=== PATIENT | female | born 1980 | race American Indian/Alaskan Native ===

== ENCOUNTER 2016-12-13 15:29 | Emergency (ER) | payer SELFPAY ==
[2016-12-13 18:29] LABS: Basophils % (Auto) 0.4 % (0.0-1.8); Eosinophils % (Auto) 1.5 % (0.0-4.3); Hematocrit 39.5 % (30.3-42.9); Hemoglobin 12.9 gm/dl (10.1-14.3); Mean Corpuscular HGB Conc 33 % (30-34); Mean Corpuscular Hemoglobin 29 pg (28-32); Mean Corpuscular Volume 90 fl (79-97); Platelet Count 312 K/mm3 (140-440); Red Cell Distribution Width 14.1 % (13.2-15.2); White Blood Count 6.7 K/mm3 (4.5-11.0)
[2016-12-13 18:43] LABS: Alanine Aminotransferase 15 units/L (7-56); Albumin 3.6 g/dL (3.9-5); Albumin/Globulin Ratio 1.1 %; Alkaline Phosphatase 68 units/L (35-129); Anion Gap 19 mmol/L; BUN/Creatinine Ratio 13.33; Bilirubin,Total 0.5 mg/dL (0.1-1.2); Blood Urea Nitrogen 8 mg/dL (7-17); Calcium 8.8 mg/dL (8.4-10.2); Carbon Dioxide 22 mmol/L (22-30); Chloride 99.6 mmol/L (98-107); Glucose 150 mg/dL (65-100); Potassium 3.5 mmol/L (3.6-5.0); Sodium 137 mmol/L (137-145)
[2016-12-13 19:21] LABS: Lipase 28 units/L (13-60)
[2016-12-13] MEDS ORDERED: ALUM-MAG HYDROX-SIMETH 200-200-20MG/5ML PO ONE (23:17)
[2016-12-13] MEDS ORDERED: LIDOCAINE VISCOUS 2% PO ONE (23:17)
[2016-12-14 01:04] LABS: Bilirubin,Urine NEG (Negative); Blood,Urine NEG (Negative); Ketones,Urine TR mg/dL (Negative); Leukocyte Esterase,Urine TR (Negative); Mucus,Urine 3+ /HPF; Nitrite,Urine NEG (Negative)
[2016-12-14] MEDS ORDERED: NORCO 5/325 PO ONE (01:10)
[2016-12-14] MEDS ORDERED: NORCO 5/325 ONE (01:11)
[2016-12-14 01:20] VITALS: BP 131/74
--- NOTE | 2016-12-14 01:27 | Emergency Department Report ---
ED Chest Pain HPI - General Chief Complaint: Chest Pain Stated Complaint: ACID REFLUX Time Seen by Provider: 12/13/16 23:00 Source: patient Mode of arrival: Ambulatory Limitations: No Limitations - History of Present Illness Initial Comments: This is a 36-year-old Afro-[place] female presents to the emergency Department , after arriving by taxi, with complaint of a 2 week history of chest pain with some radiation towards the left side of her back. It is a burning and pressure sensation in the patient feels like it might be similar to her GERD. She denies any shortness of breath, nausea, vomiting, diaphoresis or fever. Patient has chronic back pain for the past 2 years since she had a fall but she has run out of her tramadol. Patient says that she normally takes Zantac for her GERD but is not been working. She denies smoking or any illicit drug use or abuse. She has a past medical history of arthritis and GERD but denies any history of HI, CVA, PE/DVT. She does not have a primary care doctor. No recent travel or sick contacts at home. Severity scale (0 -10): 6 - Related Data Previous Rx's Medication Instructions Recorded Last Taken Type Prednisone [predniSONE 5 mg (6-Day 5 mg PO .TAPER #1 tab.ds.pk 09/02/14 Unknown Rx Pack, 21 Tabs)] traMADol [Ultram 50 MG tab] 50 mg PO Q6HR PRN #20 tablet 09/02/14 Unknown Rx Pantoprazole Sodium [Protonix] 40 mg PO DAILY #14 tablet.dr 02/04/15 Unknown Rx Amoxicillin [Trimox CAP] 500 mg PO Q8H #30 capsule 06/26/15 Unknown Rx HYDROcodone/APAP 5-325 [[place] 1 each PO Q6HR PRN #12 tablet 06/26/15 Unknown Rx 5/325] Promethazine Dm [Phenergan Dm 5 ml PO Q6H PRN #120 ml 06/26/15 Unknown Rx 6.25/15 mg 5 ml] predniSONE [Deltasone] 20 mg PO TID #12 tab 06/26/15 Unknown Rx Azithromycin [Zithromax Z-ROXANN] 250 mg PO QDAY #6 tablet 12/26/15 Unknown Rx Brompheniramine/Pseudoephed/Dm 10 ml PO Q4HR #120 syrup 12/26/15 Unknown Rx [Bromfed Dm Cough Syrup] Prednisone [predniSONE 10 mg 10 mg PO .TAPER #1 tab.ds.pk 12/26/15 Unknown Rx (6-Day Pack, 21 Tabs)] Ketorolac [Toradol] 10 mg PO Q6H PRN #20 tablet 04/19/16 Unknown Rx Dicyclomine [Bentyl] 10 mg PO QID PRN #20 capsule 05/21/16 Unknown Rx Ondansetron [Zofran Odt] 4 mg PO QID PRN #20 tab.rapdis 05/21/16 Unknown Rx HYDROcodone/APAP 5-325 [[place] 1 each PO Q6HR PRN #8 tablet 12/14/16 Unknown Rx 5/325] Allergies Allergy/AdvReac Type Severity Reaction Status Date / Time ketorolac tromethamine Allergy Rash Verified 05/20/16 21:25 [From Toradol] COLLIN score - Collin Score Age > 65: (0) No Aspirin use within the Past 7 Days: (0) No 3 or more CAD Risk Factors: (0) No 2 or more Angina events in past 24 hrs: (1) Yes Known CAD with more than 50% Stenosis: (0) No Elevated Cardiac Markers: (0) No ST Deviation Greater than 0.5mm: (0) No COLLIN Score: 1 ED Review of Systems ROS: Stated complaint: ACID REFLUX Other details as noted in HPI Comment: All other systems reviewed and negative Constitutional: denies: chills, fever Eyes: denies: eye pain, eye discharge, vision change ENT: denies: ear pain, throat pain Respiratory: denies: cough, shortness of breath, wheezing Cardiovascular: chest pain Gastrointestinal: denies: abdominal pain, nausea, diarrhea Genitourinary: denies: urgency, dysuria, discharge Musculoskeletal: back pain. denies: arthralgia Skin: denies: rash, lesions Neurological: denies: headache, weakness, paresthesias ED Past Medical Hx - Past Medical History Previous Medical History?: Yes Hx Congestive Heart Failure: No Hx Diabetes: No Hx GERD: Yes Hx Sickle Cell Disease: No Hx Arthritis: Yes Hx Asthma: No Hx COPD: No Hx HIV: No - Surgical History Past Surgical History?: No - Social History Smoking Status: Never Smoker Substance Use Type: None - Medications Home Medications: Home Medications Medication Instructions Recorded Confirmed Last Taken Type Prednisone [predniSONE 5 mg (6-Day 5 mg PO .TAPER #1 tab.ds.pk 09/02/14 Unknown Rx Pack, 21 Tabs)] traMADol [Ultram 50 MG tab] 50 mg PO Q6HR PRN #20 tablet 09/02/14 Unknown Rx Pantoprazole Sodium [Protonix] 40 mg PO DAILY #14 tablet.dr 02/04/15 Unknown Rx Amoxicillin [Trimox CAP] 500 mg PO Q8H #30 capsule 06/26/15 Unknown Rx HYDROcodone/APAP 5-325 [[place] 1 each PO Q6HR PRN #12 tablet 06/26/15 Unknown Rx 5/325] Promethazine Dm [Phenergan Dm 5 ml PO Q6H PRN #120 ml 06/26/15 Unknown Rx 6.25/15 mg 5 ml] predniSONE [Deltasone] 20 mg PO TID #12 tab 06/26/15 Unknown Rx Azithromycin [Zithromax Z-ROXANN] 250 mg PO QDAY #6 tablet 12/26/15 Unknown Rx Brompheniramine/Pseudoephed/Dm 10 ml PO Q4HR #120 syrup 12/26/15 Unknown Rx [Bromfed Dm Cough Syrup] Prednisone [predniSONE 10 mg 10 mg PO .TAPER #1 tab.ds.pk 12/26/15 Unknown Rx (6-Day Pack, 21 Tabs)] Ketorolac [Toradol] 10 mg PO Q6H PRN #20 tablet 04/19/16 Unknown Rx Dicyclomine [Bentyl] 10 mg PO QID PRN #20 capsule 05/21/16 Unknown Rx Ondansetron [Zofran Odt] 4 mg PO QID PRN #20 tab.rapdis 05/21/16 Unknown Rx HYDROcodone/APAP 5-325 [[place] 1 each PO Q6HR PRN #8 tablet 12/14/16 Unknown Rx 5/325] ED Physical Exam - General Limitations: No Limitations - Other Other exam information: GENERAL: The patient is well-developed well-nourished. HEENT: Normocephalic. Atraumatic. Extraocular motions are intact. Patient has moist mucous membranes. Pupils equal reactive to light bilaterally. NECK: Supple. Trachea is midline. CHEST/LUNGS: Clear to auscultation. There is no respiratory distress noted. HEART/CARDIOVASCULAR: Regular. There is no tachycardia. There is no gallop rub or murmur. ABDOMEN: Abdomen is soft, nontender. Patient has normal bowel sounds. There is no abdominal distention. Obese habitus. SKIN: Skin is warm and dry. NEURO: The patient is awake, alert, and oriented. The patient is cooperative. The patient has no focal neurologic deficits. The patient has normal speech. MUSCULOSKELETAL: There is no tenderness or deformity. There is no limitation range of motion. There is no evidence of acute injury. ED Course Vital Signs 12/13/16 12/14/16 15:43 01:18 Temperature 98.5 F 98.2 F Pulse Rate 82 81 Respiratory 16 16 Rate Blood Pressure 135/95 Blood Pressure 131/74 [Left] O2 Sat by Pulse 100 98 Oximetry ED Medical Decision Making - Lab Data Result diagrams: 12/13/16 17:41 12/13/16 17:41 - EKG Data -: EKG Interpreted by Me EKG shows normal: sinus rhythm, axis, intervals, QRS complexes, ST-T waves Rate: normal - EKG Data When compared to previous EKG there are: previous EKG unavailable Interpretation: normal EKG - Radiology Data Radiology results: image reviewed interpreted by me: Chest x-ray did not show any acute process. Heart is normal shape and size. No effusions. No pneumothorax. No signs of pneumonia seen. - Medical Decision Making 36-year-old female presents to the emergency department with complaint of some chest pain with radiation to the back has been going on for the past 2 weeks. The patient feels like it is related to her GERD so she was given a GI cocktail. When this did not improve her discomfort enough she was given a [place]. Patient's labs are unremarkable with negative troponins 3 and a negative d-dimer. There is no elevation in the white blood cell count show any signs of infection. No urinary tract infection and the patient is not . Chest x-ray does not show any acute process. EKG does not show any signs of ST elevation HI, dysrhythmia or ischemia. The patient has a COLLIN score of 1 if her pain is to be considered angina and 0 if it is not. She is low on the well's criteria criteria and despite that she is also negative with the d-dimer. For these reasons patient appears safe for discharge home. She will be given referrals for primary care and cardiology. She has been encouraged to return to the emergency department with any worsening of her symptoms or any acute distress. Since the patient did receive a [place], she understands that she is not able to take a taxi or an uber or drive herself home and needs someone to pick her up from the hospital. - Differential Diagnosis GERD, costochondritis, HI, PE, pneumonia Critical Care Time: No Critical care attestation.: If time is entered above; I have spent that time in minutes in the direct care of this critically ill patient, excluding procedure time. ED Disposition Clinical Impression: Chest pain Qualifiers: Chest pain type: unspecified Qualified Code(s): R07.9 - Chest pain, unspecified Back pain Qualifiers: Back pain location: thoracic back pain Chronicity: unspecified Back pain laterality: left Qualified Code(s): M54.6 - Pain in thoracic spine Disposition: DISCHARGED TO HOME OR SELFCARE Is pt being admited?: No Condition: Stable Instructions: Chest Pain (ED), Back Pain (ED) Additional Instructions: Please follow-up with a primary care doctor in the next few days. I will also given you a referral for a local terrazzo finisher, kristi Awanase she would like to follow up for an outpatient stress test. Return to the emergency department with any worsening of your symptoms or any acute distress. You've been prescribed a medication that is sedating. Therefore this medication cannot be mixed with alcohol, or taken prior to driving, working, or being responsible for children. Prescriptions: HYDROcodone/APAP 5-325 [[place] 5/325] 1 each PO Q6HR PRN #8 tablet PRN Reason: Pain Referrals: PRIMARY MD RONY [Primary Care Provider] - 3-5 Days RYAN ROTH MD [Staff Physician] - 3-5 Days TRU DURANT MD [Staff Physician] - 3-5 Days Time of Disposition: 01:37
--- NOTE | 2016-12-14 09:54 | XRay Report ---
Single view chest: Compared to 04/19/16. History: Chest pain. Findings: Normal cardiomediastinal silhouette. Trachea is midline. No consolidation, pneumothorax or pleural effusion. Impression: No acute cardiopulmonary findings.
== END 2016-12-14 02:00 | disposition home or self-care (01) ==
LOC: ED 15:29
DX: R07.9 Chest pain, unspecified (principal); M54.6 Pain in thoracic spine; K21.9 Gastro-esophageal reflux disease without esophagitis
CPT/HCPCS: 36415; 71010; 80048; 80053; 81001; 81025; 83690; 84484; 85025; 85379; 93005; 93010; 99285

== ENCOUNTER 2017-04-02 18:55 | Emergency (ER) | payer SELFPAY ==
[2017-04-02 19:49] LABS: Hematocrit 41.6 % (30.3-42.9); Hemoglobin 13.7 gm/dl (10.1-14.3); Mean Corpuscular HGB Conc 33 % (30-34); Mean Corpuscular Hemoglobin 30 pg (28-32); Mean Corpuscular Volume 90 fl (79-97); Red Blood Count 4.61 M/mm3 (3.65-5.03); Red Cell Distribution Width 13.5 % (13.2-15.2); White Blood Count 6.8 K/mm3 (4.5-11.0)
[2017-04-02 19:57] LABS: Mean Platelet Volume 7.7 fl (6-12); Platelet Count 315 K/mm3 (140-440)
[2017-04-02 19:58] LABS: Diff Status Complete
[2017-04-02 20:06] LABS: Alanine Aminotransferase 12 units/L (7-56); Albumin 3.9 g/dL (3.9-5); Albumin/Globulin Ratio 1.1 %; Alkaline Phosphatase 66 units/L (35-129); Anion Gap 21 mmol/L; BUN/Creatinine Ratio 11.66; Blood Urea Nitrogen 7 mg/dL (7-17); Calcium 8.8 mg/dL (8.4-10.2); Carbon Dioxide 21 mmol/L (22-30); Chloride 101.6 mmol/L (98-107); Glucose 96 mg/dL (65-100); Lipase 35 units/L (13-60); Potassium 4.2 mmol/L (3.6-5.0); Sodium 139 mmol/L (137-145); Total Protein 7.4 g/dL (6.3-8.2)
[2017-04-02 20:11] LABS: Bilirubin,Urine NEG (Negative); Blood,Urine LG (Negative); Ketones,Urine 20 mg/dL (Negative); Leukocyte Esterase,Urine SM (Negative); Nitrite,Urine NEG (Negative); Urobilinogen,Urine < 2.0 mg/dL (<2.0)
[2017-04-02 20:12] LABS: RBC,Urine > 182.0 /HPF (0.0-6.0)
--- NOTE | 2017-04-02 20:40 | Cat Scan Report ---
FINAL REPORT EXAM: CT HEAD/BRAIN WO CON HISTORY: HTN, Noncompliant Rx, Dizzy, Blurred Vision TECHNIQUE: Noncontrast serial axial images from skull base to vertex. PRIORS: None. FINDINGS: There is no mass effect or midline shift. There are no abnormal intra or extra-axial fluid collections. Cortical sulci and lateral ventricles are within normal limits for size and configuration. Basilar cisterns are patent. No acute intracranial hemorrhage is identified. Visualized paranasal sinuses and mastoid air cells are well aerated. No acute osseous abnormality is identified. IMPRESSION: 1. No abnormal mass or acute intracranial hemorrhage is identified.
[2017-04-02 20:44] LABS: INR 0.97 (0.87-1.13)
[2017-04-02 20:45] LABS: Partial Thromboplastin Time 26.4 Sec. (24.2-36.6)
--- NOTE | 2017-04-02 22:44 | Emergency Department Report ---
ED General Adult HPI - General Chief complaint: High BP Stated complaint: CYCLE/HEAVY BLEEDING Time Seen by Provider: 04/02/17 22:40 Source: patient, RN notes reviewed, old records reviewed Mode of arrival: Ambulatory Limitations: No Limitations - History of Present Illness Initial comments: This is a 37-year-old female. I have evaluated her in the past. She does not have a primary care doctor. Her motion picture set grip is "[facility]." Past medical history includes obesity, GERD, DJD. The patient presents to the ER today with vaginal bleeding, onset of menstruation today. She reports a menstruation is typically heavier than normal. She reports cramps, and she reports feeling anxious and shaking. She denies severe headache, severe chest pain, but admits to mild shortness of breath. There is no leg pain. There is no leg swelling. No recent trips greater than 4 hours. No recent hospital admissions. Patient does not take control tablets. No cocaine use. No recent aspirin use. No recent surgeries. She also reports that her blood pressure was slightly elevated. Her symptoms started today, around 9:00 in the morning, and they have no exacerbating or relieving factors. -: Gradual Severity scale (0 -10): 4 Quality: aching Consistency: constant Improves with: none Worsens with: none Associated Symptoms: cough, loss of appetite, malaise, shortness of breath, weakness - Related Data Previous Rx's Medication Instructions Recorded Last Taken Type Prednisone [predniSONE 5 mg (6-Day 5 mg PO .TAPER #1 tab.ds.pk 09/02/14 Unknown Rx Pack, 21 Tabs)] traMADol [Ultram 50 MG tab] 50 mg PO Q6HR PRN #20 tablet 09/02/14 Unknown Rx Pantoprazole Sodium [Protonix] 40 mg PO DAILY #14 tablet.dr 02/04/15 Unknown Rx Amoxicillin [Trimox CAP] 500 mg PO Q8H #30 capsule 06/26/15 Unknown Rx HYDROcodone/APAP 5-325 [[place] 1 each PO Q6HR PRN #12 tablet 06/26/15 Unknown Rx 5/325] Promethazine Dm [Phenergan Dm 5 ml PO Q6H PRN #120 ml 06/26/15 Unknown Rx 6.25/15 mg 5 ml] predniSONE [Deltasone] 20 mg PO TID #12 tab 06/26/15 Unknown Rx Azithromycin [Zithromax Z-ROXANN] 250 mg PO QDAY #6 tablet 12/26/15 Unknown Rx Brompheniramine/Pseudoephed/Dm 10 ml PO Q4HR #120 syrup 12/26/15 Unknown Rx [Bromfed Dm Cough Syrup] Prednisone [predniSONE 10 mg 10 mg PO .TAPER #1 tab.ds.pk 12/26/15 Unknown Rx (6-Day Pack, 21 Tabs)] Ketorolac [Toradol] 10 mg PO Q6H PRN #20 tablet 04/19/16 Unknown Rx Dicyclomine [Bentyl] 10 mg PO QID PRN #20 capsule 05/21/16 Unknown Rx Ondansetron [Zofran Odt] 4 mg PO QID PRN #20 tab.rapdis 05/21/16 Unknown Rx HYDROcodone/APAP 5-325 [[place] 1 each PO Q6HR PRN #8 tablet 12/14/16 Unknown Rx 5/325] traMADol [Ultram 50 MG tab] 50 mg PO Q6HR PRN #15 tablet 04/02/17 Unknown Rx Allergies Allergy/AdvReac Type Severity Reaction Status Date / Time acetaminophen [From Tylenol] Allergy Itching Verified 04/02/17 23:29 ketorolac tromethamine Allergy Rash Verified 05/20/16 21:25 [From Toradol] ED Review of Systems ROS: Stated complaint: CYCLE/HEAVY BLEEDING Other details as noted in HPI Constitutional: malaise, weakness. denies: fever Eyes: denies: vision change ENT: denies: epistaxis Respiratory: shortness of breath Cardiovascular: as per HPI Gastrointestinal: abdominal pain Genitourinary: abnormal menses Musculoskeletal: arthralgia, myalgia Skin: denies: lesions Neurological: weakness Psychiatric: anxiety ED Past Medical Hx - Past Medical History Previous Medical History?: Yes Hx Hypertension: Yes (Noncompliant with Rx) Hx Congestive Heart Failure: No Hx Diabetes: No Hx GERD: Yes Hx Sickle Cell Disease: No Hx Arthritis: Yes Hx Asthma: No Hx COPD: No Hx HIV: No - Surgical History Past Surgical History?: No - Social History Smoking Status: Never Smoker Substance Use Type: None - Medications Home Medications: Home Medications Medication Instructions Recorded Confirmed Last Taken Type Prednisone [predniSONE 5 mg (6-Day 5 mg PO .TAPER #1 tab.ds.pk 09/02/14 Unknown Rx Pack, 21 Tabs)] traMADol [Ultram 50 MG tab] 50 mg PO Q6HR PRN #20 tablet 09/02/14 Unknown Rx Pantoprazole Sodium [Protonix] 40 mg PO DAILY #14 tablet.dr 02/04/15 Unknown Rx Amoxicillin [Trimox CAP] 500 mg PO Q8H #30 capsule 06/26/15 Unknown Rx HYDROcodone/APAP 5-325 [[place] 1 each PO Q6HR PRN #12 tablet 06/26/15 Unknown Rx 5/325] Promethazine Dm [Phenergan Dm 5 ml PO Q6H PRN #120 ml 06/26/15 Unknown Rx 6.25/15 mg 5 ml] predniSONE [Deltasone] 20 mg PO TID #12 tab 06/26/15 Unknown Rx Azithromycin [Zithromax Z-ROXANN] 250 mg PO QDAY #6 tablet 12/26/15 Unknown Rx Brompheniramine/Pseudoephed/Dm 10 ml PO Q4HR #120 syrup 12/26/15 Unknown Rx [Bromfed Dm Cough Syrup] Prednisone [predniSONE 10 mg 10 mg PO .TAPER #1 tab.ds.pk 12/26/15 Unknown Rx (6-Day Pack, 21 Tabs)] Ketorolac [Toradol] 10 mg PO Q6H PRN #20 tablet 04/19/16 Unknown Rx Dicyclomine [Bentyl] 10 mg PO QID PRN #20 capsule 05/21/16 Unknown Rx Ondansetron [Zofran Odt] 4 mg PO QID PRN #20 tab.rapdis 05/21/16 Unknown Rx HYDROcodone/APAP 5-325 [[place] 1 each PO Q6HR PRN #8 tablet 12/14/16 Unknown Rx 5/325] traMADol [Ultram 50 MG tab] 50 mg PO Q6HR PRN #15 tablet 04/02/17 Unknown Rx ED Physical Exam - General Limitations: No Limitations General appearance: alert, in no apparent distress, obese - Head Head exam: Present: atraumatic, normocephalic - Eye Eye exam: Present: normal appearance, PERRL, EOMI, other (visual acuity intact to finger counting, color perception, reading at a close distance). Absent: nystagmus - ENT ENT exam: Present: normal exam, normal orophraynx, mucous membranes moist, normal external ear exam - Neck Neck exam: Present: normal inspection, full ROM. Absent: tenderness, meningismus - Respiratory Respiratory exam: Present: normal lung sounds bilaterally. Absent: respiratory distress, wheezes, rales, rhonchi, stridor, chest wall tenderness, accessory muscle use, decreased breath sounds, prolonged expiratory - Cardiovascular Cardiovascular Exam: Present: regular rate, normal rhythm, normal heart sounds. Absent: bradycardia, tachycardia, irregular rhythm, systolic murmur, diastolic murmur, rubs, gallop - GI/Abdominal GI/Abdominal exam: Present: soft, normal bowel sounds. Absent: distended, tenderness, guarding, rebound, rigid, pulsatile mass - External exam: Present: normal external exam Speculum exam: Present: vaginal bleeding Bi-manual exam: Present: normal bi-manual exam, other (escorted by ER power lineman technician Micheal). Absent: cervical motion tendernes, adnexal tenderness, adnexal mass - Extremities Exam Extremities exam: Present: normal inspection, full ROM, normal capillary refill. Absent: tenderness, pedal edema, joint swelling, calf tenderness - Back Exam Back exam: Present: normal inspection, full ROM. Absent: tenderness, CVA tenderness (R), CVA tenderness (L), muscle spasm, paraspinal tenderness, vertebral tenderness - Neurological Exam Neurological exam: Present: alert, oriented X3, normal gait, other (Extraocular movements intact. Tongue midline. No facial droop. Facial sensation intact to light touch in the V1, V2, V3 distribution bilaterally. 5 and 5 strength in 4 extremities.. Sensation is intact to light touch in 4 extremities.). Absent : motor sensory deficit - Psychiatric Psychiatric exam: Present: anxious - Skin Skin exam: Present: warm, dry, intact, normal color. Absent: rash ED Course Vital Signs 04/02/17 04/02/17 04/02/17 19:13 22:35 22:46 Temperature 99.4 F Pulse Rate 88 Respiratory 20 18 Rate Blood Pressure 160/110 [Right] O2 Sat by Pulse 98 98 100 Oximetry 04/02/17 23:27 Temperature 98.9 F Pulse Rate 63 Respiratory 20 Rate Blood Pressure 134/80 [Right] O2 Sat by Pulse 99 Oximetry - Reevaluation(s) Reevaluation #1: 07/12/17 23:44 patient now endorsing allergies to acetaminophen and ketorolac. Given her clinical presentation and will believe she merits acute narcotic therapy. Unfortunately, she is allergic to any medication that I would prescribe for her at this time. I have instructed her to follow-up with her outpatient motion picture set grip or pain specialist if she feels like she requires stronger pain medication than what is available [id number]. ED Medical Decision Making - Lab Data Result diagrams: 04/02/17 19:22 04/02/17 19:22 Vital Signs 04/02/17 04/02/17 04/02/17 19:13 22:35 22:46 Temperature 99.4 F Pulse Rate 88 Respiratory 20 18 Rate Blood Pressure 160/110 [Right] O2 Sat by Pulse 98 98 100 Oximetry Lab Results 04/02/17 04/02/17 04/02/17 Range/Units 19:22 19:22 19:22 WBC 6.8 (4.5-11.0) K/mm3 RBC 4.61 (3.65-5.03) M/mm3 Hgb 13.7 (10.1-14.3) gm/dl Hct 41.6 (30.3-42.9) % MCV 90 (79-97) fl MCH 30 (28-32) pg MCHC 33 (30-34) % RDW 13.5 (13.2-15.2) % Plt Count 315 (140-440) K/mm3 Lymph % (Auto) 25.0 (13.4-35.0) % [place] % (Auto) 8.0 H (0.0-7.3) % Eos % (Auto) 4.0 (0.0-4.3) % Baso % (Auto) Not Reportable Lymph # 2.1 (1.2-5.4) K/mm3 [place] # 0.7 (0.0-0.8) K/mm3 Eos # 0.3 (0.0-0.4) K/mm3 Baso # Not Reportable Add Manual Diff Complete Seg Neutrophils % 63.0 (40.0-70.0) % Seg Neutrophils # 5.3 (1.8-7.7) K/mm3 PT (12.2-14.9) Sec. INR (0.87-1.13) APTT (24.2-36.6) Sec. Sodium 139 (137-145) mmol/L Potassium 4.2 (3.6-5.0) mmol/L Chloride 101.6 (98-107) mmol/L Carbon Dioxide 21 L (22-30) mmol/L Anion Gap 21 mmol/L BUN 7 (7-17) mg/dL Creatinine 0.6 L (0.7-1.2) mg/dL Estimated GFR > 60 ml/min BUN/Creatinine Ratio 11.66 % Glucose 96 (65-100) mg/dL Calcium 8.8 (8.4-10.2) mg/dL Total Bilirubin 0.60 (0.1-1.2) mg/dL AST 17 (5-40) units/L ALT 12 (7-56) units/L Alkaline Phosphatase 66 (35-129) units/L Troponin T < 0.010 (0.00-0.029) ng/mL Total Protein 7.4 (6.3-8.2) g/dL Albumin 3.9 (3.9-5) g/dL Albumin/Globulin Ratio 1.1 % Lipase 35 (13-60) units/L HCG, Qual Negative (Negative) Urine Color (Yellow) Urine Turbidity (Clear) Urine pH (5.0-7.0) Ur Specific [place] (1.003-1.030) Urine Protein (Negative) mg/dL Urine Glucose (UA) (Negative) mg/dL Urine Ketones (Negative) mg/dL Urine Blood (Negative) Urine Nitrite (Negative) Urine Bilirubin (Negative) Urine Urobilinogen (<2.0) mg/dL Ur Leukocyte Esterase (Negative) Urine WBC (Auto) (0.0-6.0) /HPF Urine RBC (Auto) (0.0-6.0) /HPF U Epithel Cells (Auto) (0-13.0) /HPF 04/02/17 04/02/17 04/02/17 Range/Units 19:49 20:10 21:42 WBC (4.5-11.0) K/mm3 RBC (3.65-5.03) M/mm3 Hgb (10.1-14.3) gm/dl Hct (30.3-42.9) % MCV (79-97) fl MCH (28-32) pg MCHC (30-34) % RDW (13.2-15.2) % Plt Count (140-440) K/mm3 Lymph % (Auto) (13.4-35.0) % [place] % (Auto) (0.0-7.3) % Eos % (Auto) (0.0-4.3) % Baso % (Auto) Lymph # (1.2-5.4) K/mm3 [place] # (0.0-0.8) K/mm3 Eos # (0.0-0.4) K/mm3 Baso # Add Manual Diff Seg Neutrophils % (40.0-70.0) % Seg Neutrophils # (1.8-7.7) K/mm3 PT 13.4 (12.2-14.9) Sec. INR 0.97 (0.87-1.13) APTT 26.4 (24.2-36.6) Sec. Sodium (137-145) mmol/L Potassium (3.6-5.0) mmol/L Chloride (98-107) mmol/L Carbon Dioxide (22-30) mmol/L Anion Gap mmol/L BUN (7-17) mg/dL Creatinine (0.7-1.2) mg/dL Estimated GFR ml/min BUN/Creatinine Ratio % Glucose (65-100) mg/dL Calcium (8.4-10.2) mg/dL Total Bilirubin (0.1-1.2) mg/dL AST (5-40) units/L ALT (7-56) units/L Alkaline Phosphatase (35-129) units/L Troponin T < 0.010 (0.00-0.029) ng/mL Total Protein (6.3-8.2) g/dL Albumin (3.9-5) g/dL Albumin/Globulin Ratio % Lipase (13-60) units/L HCG, Qual (Negative) Urine Color Red (Yellow) Urine Turbidity Cloudy (Clear) Urine pH 6.0 (5.0-7.0) Ur Specific [place] 1.012 (1.003-1.030) Urine Protein 100 mg/dl (Negative) mg/dL Urine Glucose (UA) Neg (Negative) mg/dL Urine Ketones 20 (Negative) mg/dL Urine Blood Lg (Negative) Urine Nitrite Neg (Negative) Urine Bilirubin Neg (Negative) Urine Urobilinogen < 2.0 (<2.0) mg/dL Ur Leukocyte Esterase Sm (Negative) Urine WBC (Auto) 37.0 H (0.0-6.0) /HPF Urine RBC (Auto) > 182.0 (0.0-6.0) /HPF U Epithel Cells (Auto) 17.0 H (0-13.0) /HPF - EKG Data -: EKG Interpreted by Me EKG shows normal: sinus rhythm, axis, intervals, QRS complexes, ST-T waves - EKG Data When compared to previous EKG there are: no significant change Interpretation: no acute changes 04/02/17 23:21 normal sinus, 63 beats per minute, normal intervals, normal axis , normal watch but consistent with STEMI, appears unchanged from prior EKG from 12/13/2016. - Radiology Data Radiology results: report reviewed, image reviewed interpreted by me: X-ray of the chest is negative for acute disease. Noncontrast CT scan of the brain is negative for acute disease - Medical Decision Making Differential diagnosis: Dysfunctional uterine bleeding, catamenia pneumothorax, acute coronary syndrome, pneumonia, pneumothorax, anxiety, symptomatic anemia assessment and plan: 37-year-old female with a complaint of crampy vaginal bleeding, and other nonspecific complaints. She is afebrile, with reassuring vital signs, with a GCS of 15, and an NIH score of 0. She walks with a steady gait. Low risk by HILDA score, low risk by heart score, troponins negative 2, EKG morphologically within normal limits and unchanged from prior EKG, chest x- ray within normal limits, low risk by well's criteria, no pulmonary embolus or DVT risk factors, perc negative. She is not . Hemoglobin and hematocrit do not require transfusion at this time. Initially hypertensive, blood pressure now in the 130s. There is none appear to be any emergent condition at this time. The patient is treated symptomatically. She is instructed to follow up with an outpatient primary care doctor, or her outpatient motion picture set grip. Return to caution as are reviewed. Critical care attestation.: If time is entered above; I have spent that time in minutes in the direct care of this critically ill patient, excluding procedure time. ED Disposition Clinical Impression: Vaginal bleeding Disposition: DC-01 TO HOME OR SELFCARE Is pt being admited?: No Does the pt Need Aspirin: No Condition: Stable Instructions: Dysfunctional Uterine Bleeding (ED) Additional Instructions: Follow up with her primary care doctor or motion picture set grip within the next 7-10 days. Return to the ER right away with new pain, worsened pain, migration of pain, fevers, chills, chest pain, shortness of breath, confusion, bleeding more than 2 pads soaked through and through per hour, dizziness, lightheadedness, intractable nausea or vomiting. Take the pain medication as directed. This medication is sedating, so if you take it, do not drive, consume alcohol, or make important decisions. Follow up with her motion picture set grip or the listed pain specialist, Dr. Burnett for further evaluation and management of your pain. Prescriptions: traMADol [Ultram 50 MG tab] 50 mg PO Q6HR PRN #15 tablet PRN Reason: Pain Referrals: [facility] [Provider Group] - 3-5 Days PEDRO JUÁREZ MD [Staff Physician] - 3-5 Days PRIMARY CAREMD [Primary Care Provider] - 3-5 Days LOC FRIEND MD [Staff Physician] - 3-5 Days MEGHAN ADAMS MD [Staff Physician] - 3-5 Days
[2017-04-02] MEDS ORDERED: TYLENOL #3 PO ONE (22:51)
[2017-04-02 23:28] VITALS: BP 134/80
[2017-04-03] MEDS ORDERED: ULTRAM ONE (00:08)
[2017-04-03] MEDS ORDERED: ULTRAM PO ONE (00:09)
--- NOTE | 2017-04-03 07:56 | XRay Report ---
ROUTINE CHEST, TWO VIEWS: HISTORY: Shortness of breath. The trachea, heart, mediastinal contour, lung roche and bony thorax are unremarkable. IMPRESSION: Unremarkable chest x-ray. No change since 12/14/16.
== END 2017-04-03 00:15 | disposition home or self-care (01) ==
LOC: ED 18:55
DX: N93.9 Abnormal uterine and vaginal bleeding, unspecified (principal); K21.9 Gastro-esophageal reflux disease without esophagitis; M19.90 Unspecified osteoarthritis, unspecified site; Z88.6 Allergy status to analgesic agent
CPT/HCPCS: 36415; 70450; 71020; 80053; 81001; 83690; 84484; 84703; 85025; 85610; 85730; 93005; 93010; 99285

== ENCOUNTER 2017-08-05 18:26 | Emergency (ER) | payer SELFPAY ==
[2017-08-05 21:19] LABS: Bilirubin,Urine NEG (Negative); Blood,Urine NEG (Negative); Ketones,Urine TR mg/dL (Negative); Leukocyte Esterase,Urine TR (Negative); Mucus,Urine 3+ /HPF; Nitrite,Urine NEG (Negative); Protein,Urine <15 mg/dL mg/dL (Negative)
--- NOTE | 2017-08-05 21:29 | Emergency Department Report ---
ED General Adult HPI - General Chief complaint: Pain General Stated complaint: FEVER AND HIGH BLOOD PRESSURE Source: patient Mode of arrival: Ambulatory Limitations: No Limitations - History of Present Illness Initial comments: 37 year old female presents to ED with subjective fever and bodyaches x1-2 days. patient states she thinks she had a fever today and yesterday and has had bodyaches. patient is stable, neurologically intact, afebrile and in no acute distress. patient is alert and oriented to person place and time and self. patient is ambulatory with normal observed gait. patient is non toxic appearing. -: Gradual, days(s) (2) Radiation: non-radiation Quality: aching Consistency: intermittent Improves with: none Worsens with: none Associated Symptoms: denies other symptoms, fever/chills. denies: confusion, chest pain, cough, diaphoresis, headaches, loss of appetite, malaise, nausea/ vomiting, rash, seizure, shortness of breath, syncope, weakness Treatments Prior to Arrival: none - Related Data Previous Rx's Medication Instructions Recorded Last Taken Type Prednisone [predniSONE 5 mg (6-Day 5 mg PO .TAPER #1 tab.ds.pk 09/02/14 Unknown Rx Pack, 21 Tabs)] traMADol [Ultram 50 MG tab] 50 mg PO Q6HR PRN #20 tablet 09/02/14 Unknown Rx Pantoprazole Sodium [Protonix] 40 mg PO DAILY #14 tablet.dr 02/04/15 Unknown Rx Amoxicillin [Trimox CAP] 500 mg PO Q8H #30 capsule 06/26/15 Unknown Rx HYDROcodone/APAP 5-325 [[place] 1 each PO Q6HR PRN #12 tablet 06/26/15 Unknown Rx 5/325] Promethazine Dm [Phenergan Dm 5 ml PO Q6H PRN #120 ml 06/26/15 Unknown Rx 6.25/15 mg 5 ml] predniSONE [Deltasone] 20 mg PO TID #12 tab 06/26/15 Unknown Rx Azithromycin [Zithromax Z-ROXANN] 250 mg PO QDAY #6 tablet 12/26/15 Unknown Rx Brompheniramine/Pseudoephed/Dm 10 ml PO Q4HR #120 syrup 12/26/15 Unknown Rx [Bromfed Dm Cough Syrup] Prednisone [predniSONE 10 mg 10 mg PO .TAPER #1 tab.ds.pk 12/26/15 Unknown Rx (6-Day Pack, 21 Tabs)] Ketorolac [Toradol] 10 mg PO Q6H PRN #20 tablet 04/19/16 Unknown Rx Dicyclomine [Bentyl] 10 mg PO QID PRN #20 capsule 05/21/16 Unknown Rx Ondansetron [Zofran Odt] 4 mg PO QID PRN #20 tab.rapdis 05/21/16 Unknown Rx HYDROcodone/APAP 5-325 [[place] 1 each PO Q6HR PRN #8 tablet 12/14/16 Unknown Rx 5/325] traMADol [Ultram 50 MG tab] 50 mg PO Q6HR PRN #15 tablet 04/02/17 Unknown Rx traMADol [Ultram 50 MG tab] 50 mg PO Q8H PRN #6 tablet 08/05/17 Unknown Rx Allergies Allergy/AdvReac Type Severity Reaction Status Date / Time acetaminophen [From Tylenol] Allergy Itching Verified 04/02/17 23:29 ketorolac tromethamine Allergy Rash Verified 05/20/16 21:25 [From Toradol] ED Review of Systems ROS: Stated complaint: FEVER AND HIGH BLOOD PRESSURE Other details as noted in HPI Constitutional: chills, fever Eyes: denies: eye pain, eye discharge, vision change ENT: denies: ear pain, throat pain Respiratory: denies: cough, shortness of breath, wheezing Cardiovascular: denies: chest pain, palpitations Endocrine: no symptoms reported Gastrointestinal: denies: abdominal pain, nausea, vomiting, diarrhea Genitourinary: denies: urgency, dysuria, discharge Musculoskeletal: denies: back pain, joint swelling, arthralgia Skin: denies: rash, lesions Neurological: denies: headache, weakness, numbness, paresthesias, confusion, abnormal gait, vertigo Psychiatric: denies: anxiety, depression Hematological/Lymphatic: denies: easy bleeding, easy bruising ED Past Medical Hx - Past Medical History Previous Medical History?: Yes Hx Hypertension: Yes (Noncompliant with Rx) Hx Congestive Heart Failure: No Hx Diabetes: No Hx GERD: Yes Hx Sickle Cell Disease: No Hx Arthritis: Yes Hx Asthma: No Hx COPD: No Hx HIV: No - Surgical History Past Surgical History?: Yes - Social History Smoking Status: Never Smoker Substance Use Type: None - Medications Home Medications: Home Medications Medication Instructions Recorded Confirmed Last Taken Type Prednisone [predniSONE 5 mg (6-Day 5 mg PO .TAPER #1 tab.ds.pk 09/02/14 Unknown Rx Pack, 21 Tabs)] traMADol [Ultram 50 MG tab] 50 mg PO Q6HR PRN #20 tablet 09/02/14 Unknown Rx Pantoprazole Sodium [Protonix] 40 mg PO DAILY #14 tablet.dr 02/04/15 Unknown Rx Amoxicillin [Trimox CAP] 500 mg PO Q8H #30 capsule 06/26/15 Unknown Rx HYDROcodone/APAP 5-325 [[place] 1 each PO Q6HR PRN #12 tablet 06/26/15 Unknown Rx 5/325] Promethazine Dm [Phenergan Dm 5 ml PO Q6H PRN #120 ml 06/26/15 Unknown Rx 6.25/15 mg 5 ml] predniSONE [Deltasone] 20 mg PO TID #12 tab 06/26/15 Unknown Rx Azithromycin [Zithromax Z-ROXANN] 250 mg PO QDAY #6 tablet 12/26/15 Unknown Rx Brompheniramine/Pseudoephed/Dm 10 ml PO Q4HR #120 syrup 12/26/15 Unknown Rx [Bromfed Dm Cough Syrup] Prednisone [predniSONE 10 mg 10 mg PO .TAPER #1 tab.ds.pk 12/26/15 Unknown Rx (6-Day Pack, 21 Tabs)] Ketorolac [Toradol] 10 mg PO Q6H PRN #20 tablet 04/19/16 Unknown Rx Dicyclomine [Bentyl] 10 mg PO QID PRN #20 capsule 05/21/16 Unknown Rx Ondansetron [Zofran Odt] 4 mg PO QID PRN #20 tab.rapdis 05/21/16 Unknown Rx HYDROcodone/APAP 5-325 [[place] 1 each PO Q6HR PRN #8 tablet 12/14/16 Unknown Rx 5/325] traMADol [Ultram 50 MG tab] 50 mg PO Q6HR PRN #15 tablet 04/02/17 Unknown Rx traMADol [Ultram 50 MG tab] 50 mg PO Q8H PRN #6 tablet 08/05/17 Unknown Rx ED Physical Exam - General Limitations: No Limitations General appearance: alert, in no apparent distress - Head Head exam: Present: atraumatic, normocephalic - Eye Eye exam: Present: normal appearance, EOMI - ENT ENT exam: Present: mucous membranes moist - Neck Neck exam: Present: normal inspection, full ROM. Absent: tenderness - Respiratory Respiratory exam: Present: normal lung sounds bilaterally. Absent: respiratory distress, wheezes, rales, rhonchi, stridor - Cardiovascular Cardiovascular Exam: Present: regular rate, normal rhythm. Absent: systolic murmur, diastolic murmur, rubs, gallop - GI/Abdominal GI/Abdominal exam: Present: soft, normal bowel sounds. Absent: distended, tenderness, guarding - Extremities Exam Extremities exam: Present: normal inspection, full ROM. Absent: tenderness - Back Exam Back exam: Present: normal inspection, full ROM. Absent: tenderness, paraspinal tenderness, vertebral tenderness - Neurological Exam Neurological exam: Present: alert, oriented X3, normal gait - Psychiatric Psychiatric exam: Present: normal affect, normal mood - Skin Skin exam: Present: warm, dry, intact, normal color. Absent: rash ED Course Vital Signs 08/05/17 08/05/17 19:09 21:37 Temperature 98.5 F Pulse Rate 70 Respiratory 18 18 Rate Blood Pressure 162/86 O2 Sat by Pulse 100 Oximetry ED Medical Decision Making - Lab Data Result diagrams: 08/05/17 21:30 08/05/17 21:30 Labs 08/05/17 08/05/17 08/05/17 20:55 21:30 21:30 WBC 7.6 RBC 4.34 Hgb 13.1 Hct 40.1 MCV 92 MCH 30 MCHC 33 RDW 14.2 Plt Count 313 Sodium 142 Potassium 4.3 Chloride 104.4 Carbon Dioxide 25 Anion Gap 17 BUN 8 Creatinine 0.5 L Estimated GFR > 60 BUN/Creatinine Ratio 16 Glucose 111 H Calcium 8.8 Urine Color Yellow Urine Turbidity Clear Urine pH 6.0 Ur Specific [place] 1.026 Urine Protein <15 mg/dl Urine Glucose (UA) Neg Urine Ketones Tr Urine Blood Neg Urine Nitrite Neg Ur Reducing Substances Not Reportable Urine Bilirubin Neg Urine Ictotest Not Reportable Urine Urobilinogen 2.0 Ur Leukocyte Esterase Tr Urine WBC (Auto) 2.0 Urine RBC (Auto) 2.0 U Epithel Cells (Auto) 13.0 Urine Mucus 3+ Urine HCG, Qual Negative - Radiology Data Radiology results: report reviewed XR chest no pulmonary infiltrates are identified - Medical Decision Making 37 year old female presents to ED with bodyaches and subjective fever. patient has normal WBC and no signs of UTI in urine specimen. patient has no acute findings on imaging. patient is stable, neurologically intact, afebrile and in no acute distress. patient is ambulatory with normal observed gait. patient has negative flu swab. Critical care attestation.: If time is entered above; I have spent that time in minutes in the direct care of this critically ill patient, excluding procedure time. ED Disposition Clinical Impression: Myalgia Disposition: DC- TO HOME OR SELFCARE Is pt being admited?: No Does the pt Need Aspirin: No Condition: Stable Instructions: Musculoskeletal Pain (ED), Hypertension (ED) Additional Instructions: Please follow up with PCP for evaluation of high blood pressure. Prescriptions: traMADol [Ultram 50 MG tab] 50 mg PO Q8H PRN #6 tablet PRN Reason: Pain Referrals: [facility] [Outside] - 2-3 Days REMBERTO GRAHAM MD [Referring] - 2-3 Days Forms: Work/School Release Form(ED)
[2017-08-05] MEDS ORDERED: ULTRAM PO ONE (21:33)
[2017-08-05 21:47] LABS: Hematocrit 40.1 % (30.3-42.9); Hemoglobin 13.1 gm/dl (10.1-14.3); Mean Corpuscular HGB Conc 33 % (30-34); Mean Corpuscular Hemoglobin 30 pg (28-32); Mean Corpuscular Volume 92 fl (79-97); Platelet Count 313 K/mm3 (140-440); Red Blood Count 4.34 M/mm3 (3.65-5.03); Red Cell Distribution Width 14.2 % (13.2-15.2); White Blood Count 7.6 K/mm3 (4.5-11.0)
[2017-08-05 22:05] LABS: Anion Gap 17 mmol/L; BUN/Creatinine Ratio 16; Blood Urea Nitrogen 8 mg/dL (7-17); Calcium 8.8 mg/dL (8.4-10.2); Carbon Dioxide 25 mmol/L (22-30); Chloride 104.4 mmol/L (98-107); Glucose 111 mg/dL (65-100); Potassium 4.3 mmol/L (3.6-5.0); Sodium 142 mmol/L (137-145)
--- NOTE | 2017-08-05 22:46 | XRay Report ---
FINAL REPORT PROCEDURE: XR CHEST ROUTINE 2V TECHNIQUE: PA and lateral chest radiographs were obtained. CPT 19852 HISTORY: subjective fever, bodyaches COMPARISON: No prior studies are available for comparison. FINDINGS: Heart: Normal. Mediastinum/Vessels: Normal. Lungs/Pleural space: No infiltrate, effusion, or pneumothorax. Bony thorax: No acute osseous abnormality. Other: IMPRESSION: No pulmonary infiltrates are identified.
[2017-08-05 23:19] VITALS: BP 160/92
== END 2017-08-05 23:00 | disposition home or self-care (01) ==
LOC: ED 18:26
DX: M79.1 Myalgia (principal); I10 Essential (primary) hypertension; K21.9 Gastro-esophageal reflux disease without esophagitis; Z88.8 Allergy status to other drugs, medicaments and biological substances
CPT/HCPCS: 36415; 71020; 80048; 81001; 81025; 85027; 87400; 99284

== ENCOUNTER 2018-06-07 14:06 | Emergency (ER) | payer SELFPAY ==
[2018-06-07 14:22] VITALS: BP 118/75
[2018-06-07] MEDS ORDERED: NACL 0.9% 1000 ML 1,000 ML IV ONE (14:46)
--- NOTE | 2018-06-07 15:08 | Emergency Department Report ---
- General Chief complaint: Weakness Stated complaint: FEELING FAINT Time Seen by Provider: 06/07/18 14:30 Source: patient Mode of arrival: Ambulatory Limitations: No Limitations - History of Present Illness Initial comments: Patient is a 38-year-old [place] female who just donated plasma approximately 30 minutes ago who states that she feels weak. Patient has mild dizziness when she stands. She also has some mild shortness of breath. Patient states she did drink some juice and a cookie afterwards but was still feeling bad and was directed towards the emergency department. - Related Data Previous Rx's Medication Instructions Recorded Last Taken Type Prednisone [predniSONE 5 mg (6-Day 5 mg PO .TAPER #1 tab.ds.pk 09/02/14 Unknown Rx Pack, 21 Tabs)] traMADol [Ultram 50 MG tab] 50 mg PO Q6HR PRN #20 tablet 09/02/14 Unknown Rx Pantoprazole Sodium [Protonix] 40 mg PO DAILY #14 tablet.dr 02/04/15 Unknown Rx Amoxicillin [Trimox CAP] 500 mg PO Q8H #30 capsule 06/26/15 Unknown Rx HYDROcodone/APAP 5-325 [[place] 1 each PO Q6HR PRN #12 tablet 06/26/15 Unknown Rx 5/325] Promethazine Dm (Nf) [Phenergan Dm 5 ml PO Q6H PRN #120 ml 06/26/15 Unknown Rx 6.25/15 mg 5 ml] predniSONE [Deltasone] 20 mg PO TID #12 tab 06/26/15 Unknown Rx Azithromycin [Zithromax Z-ROXANN] 250 mg PO QDAY #6 tablet 12/26/15 Unknown Rx Brompheniramine/Pseudoephed/Dm 10 ml PO Q4HR #120 syrup 12/26/15 Unknown Rx [Bromfed Dm Cough Syrup] Prednisone [predniSONE 10 mg 10 mg PO .TAPER #1 tab.ds.pk 12/26/15 Unknown Rx (6-Day Pack, 21 Tabs)] Ketorolac [Toradol] 10 mg PO Q6H PRN #20 tablet 04/19/16 Unknown Rx Dicyclomine [Bentyl] 10 mg PO QID PRN #20 capsule 05/21/16 Unknown Rx Ondansetron [Zofran Odt] 4 mg PO QID PRN #20 tab.rapdis 05/21/16 Unknown Rx HYDROcodone/APAP 5-325 [[place] 1 each PO Q6HR PRN #8 tablet 12/14/16 Unknown Rx 5/325] traMADol [Ultram 50 MG tab] 50 mg PO Q6HR PRN #15 tablet 04/02/17 Unknown Rx traMADol [Ultram 50 MG tab] 50 mg PO Q8H PRN #6 tablet 08/05/17 Unknown Rx Allergies Allergy/AdvReac Type Severity Reaction Status Date / Time acetaminophen [From Tylenol] Allergy Itching Verified 04/02/17 23:29 ketorolac tromethamine Allergy Rash Verified 06/07/18 14:22 [From Toradol] ED Review of Systems ROS: Stated complaint: FEELING FAINT Other details as noted in HPI Comment: All other systems reviewed and negative ED Past Medical Hx - Past Medical History Hx Hypertension: Yes (Noncompliant with Rx) Hx Congestive Heart Failure: No Hx Diabetes: No Hx GERD: Yes Hx Sickle Cell Disease: No Hx Arthritis: Yes Hx Asthma: No Hx COPD: No Hx HIV: No - Social History Smoking Status: Current Every Day Smoker Substance Use Type: None - Medications Home Medications: Home Medications Medication Instructions Recorded Confirmed Last Taken Type Prednisone [predniSONE 5 mg (6-Day 5 mg PO .TAPER #1 tab.ds.pk 09/02/14 Unknown Rx Pack, 21 Tabs)] traMADol [Ultram 50 MG tab] 50 mg PO Q6HR PRN #20 tablet 09/02/14 Unknown Rx Pantoprazole Sodium [Protonix] 40 mg PO DAILY #14 tablet. 02/04/15 Unknown Rx Amoxicillin [Trimox CAP] 500 mg PO Q8H #30 capsule 06/26/15 Unknown Rx HYDROcodone/APAP 5-325 [[place]well 1 each PO Q6HR PRN #12 tablet 06/26/15 Unknown Rx 5/325] Promethazine Dm (Nf) [Phenergan Dm 5 ml PO Q6H PRN #120 ml 06/26/15 Unknown Rx 6.25/15 mg 5 ml] predniSONE [Deltasone] 20 mg PO TID #12 tab 06/26/15 Unknown Rx Azithromycin [Zithromax Z-ROXANN] 250 mg PO QDAY #6 tablet 12/26/15 Unknown Rx Brompheniramine/Pseudoephed/Dm 10 ml PO Q4HR #120 syrup 12/26/15 Unknown Rx [Bromfed Dm Cough Syrup] Prednisone [predniSONE 10 mg 10 mg PO .TAPER #1 tab.ds.pk 12/26/15 Unknown Rx (6-Day Pack, 21 Tabs)] Ketorolac [Toradol] 10 mg PO Q6H PRN #20 tablet 04/19/16 Unknown Rx Dicyclomine [Bentyl] 10 mg PO QID PRN #20 capsule 05/21/16 Unknown Rx Ondansetron [Zofran Odt] 4 mg PO QID PRN #20 tab.rapdis 05/21/16 Unknown Rx HYDROcodone/APAP 5-325 [[place] 1 each PO Q6HR PRN #8 tablet 12/14/16 Unknown Rx 5/325] traMADol [Ultram 50 MG tab] 50 mg PO Q6HR PRN #15 tablet 04/02/17 Unknown Rx traMADol [Ultram 50 MG tab] 50 mg PO Q8H PRN #6 tablet 08/05/17 Unknown Rx ED Physical Exam - General Limitations: No Limitations General appearance: alert, in no apparent distress - Head Head exam: Present: atraumatic, normocephalic - Eye Eye exam: Present: normal appearance - ENT ENT exam: Present: mucous membranes moist - Neck Neck exam: Present: normal inspection - Respiratory Respiratory exam: Present: normal lung sounds bilaterally. Absent: respiratory distress, wheezes, rales, rhonchi - Cardiovascular Cardiovascular Exam: Present: regular rate, normal rhythm. Absent: systolic murmur, diastolic murmur, rubs, gallop - GI/Abdominal GI/Abdominal exam: Present: soft, normal bowel sounds. Absent: distended, tenderness, guarding, rebound - Extremities Exam Extremities exam: Present: normal inspection - Back Exam Back exam: Present: normal inspection - Neurological Exam Neurological exam: Present: alert, oriented X3 - Psychiatric Psychiatric exam: Present: normal affect, normal mood - Skin Skin exam: Present: warm, dry, intact, normal color. Absent: rash ED Course Vital Signs 06/07/18 14:20 Temperature 98.1 F Pulse Rate 61 Respiratory 18 Rate Blood Pressure 118/75 O2 Sat by Pulse 97 Oximetry ED Medical Decision Making - Medical Decision Making Patient was given a liter of IV fluids to replace the fluid loss patient be discharged home Critical care attestation.: If time is entered above; I have spent that time in minutes in the direct care of this critically ill patient, excluding procedure time. ED Disposition Clinical Impression: Mild dehydration Disposition: DC-01 TO HOME OR SELFCARE Is pt being admited?: No Does the pt Need Aspirin: No Condition: Stable Instructions: Dehydration (ED) Referrals: PRIMARY CARE, [Primary Care Provider] - 3-5 Days Time of Disposition: 15:07
[2018-06-07] MEDS ORDERED: TYLENOL PO ONE (16:32)
[2018-06-07] MEDS ORDERED: TYLENOL ONE (16:33)
== END 2018-06-07 16:33 | disposition home or self-care (01) ==
LOC: ED 14:06
DX: E86.0 Dehydration (principal); I10 Essential (primary) hypertension; K21.9 Gastro-esophageal reflux disease without esophagitis; M19.90 Unspecified osteoarthritis, unspecified site; F17.200 Nicotine dependence, unspecified, uncomplicated; Z79.899 Other long term (current) drug therapy; Z88.6 Allergy status to analgesic agent
CPT/HCPCS: 96360; 99283; J7030

== ENCOUNTER 2019-05-07 20:41 | Emergency (ER) | payer SELFPAY ==
[2019-05-07] MEDS ORDERED: ASPIRIN PO ONE (21:11)
--- NOTE | 2019-05-07 21:48 | XRay Report ---
CHEST PA AND LATERAL VIEWS INDICATION: Chest Pain. COMPARISON: None. FINDINGS: Support devices: None. Heart: Within normal limits. Lungs/Pleura: No acute pulmonary or pleural findings. IMPRESSION: 1. No significant abnormality. Signer Name: Mert Wheeler MD Signed: 05/07/2019 9:44 PM Workstation Name: [id number]
[2019-05-07 22:02] LABS: Basophils % (Auto) 0.5 % (0.0-1.8); Eosinophils % (Auto) 0.3 % (0.0-4.3); Hemoglobin 15.3 gm/dl (10.1-14.3); Lymphocytes # (Auto) 1.9 K/mm3 (1.2-5.4); Lymphocytes % (Auto) 26.5 % (13.4-35.0); Mean Corpuscular HGB Conc 35 % (30-34); Mean Corpuscular Volume 90 fl (79-97); Monocytes # (Auto) 0.4 K/mm3 (0.0-0.8); Monocytes % (Auto) 5.2 % (0.0-7.3); Platelet Count 278 K/mm3 (140-440); Red Blood Count 4.89 M/mm3 (3.65-5.03); Red Cell Distribution Width 14.1 % (13.2-15.2)
[2019-05-07 22:20] LABS: BUN/Creatinine Ratio 16; Blood Urea Nitrogen 11 mg/dL (7-17); Calcium 8.9 mg/dL (8.4-10.2); Hemolysis Index 33
[2019-05-08] MEDS ORDERED: LIDOCAINE VISCOUS 2% PO ONE (03:58)
[2019-05-08] MEDS ORDERED: ALUM-MAG HYDROX-SIMETH 200-200-20MG/5ML PO ONE (03:58)
[2019-05-08] MEDS ORDERED: LIDOCAINE VISCOUS 2% ONE (04:05)
[2019-05-08] MEDS ORDERED: ALUM-MAG HYDROX-SIMETH 200-200-20MG/5ML ONE (04:05)
[2019-05-08] MEDS ORDERED: PEPCID PO ONE (04:48)
[2019-05-08] MEDS ORDERED: CARAFATE PO ONE (04:48)
[2019-05-08] MEDS ORDERED: ZOFRAN ORAL LIQ PO ONE (04:48)
--- NOTE | 2019-05-08 04:49 | Emergency Department Report ---
ED General Adult HPI - General Chief complaint: Chest Pain Stated complaint: HEART ISSUES SKIP A BEAT Time Seen by Provider: 05/08/19 04:18 Source: patient, RN notes reviewed, old records reviewed Mode of arrival: Ambulatory Limitations: No Limitations - History of Present Illness Initial comments: This is a 39-year-old female. I have evaluated this patient in the past. She does not have a primary care doctor. Her past medical history includes obesity, GERD, DJD. The patient presents to the ER today with a complaint of nontraumatic left sided chest wall and breast pain. This pain is present for 1- 2 months. It radiates down to the suprapubic region. The patient states she does not know she is . She denies exertional shortness of breath, recent aspirin use, DVT, pulmonary embolism risk factors. She has chronic muscular skeletal pain. She denies urinary symptoms. She denies fevers. The chest wall pain does not radiates to the back, arms or neck. The pain is achy and sharp, radiates as noted, and is reportedly intermittent. Patient treated with GI cocktail, and supportive medications prior to my evaluation, after nursing team discussed her initial presentation with me, and the patient endorses significant improvement in her symptoms to nursing team. Patient states she has not delivered or given within the past 6 weeks. -: Gradual Location: chest Radiation: abdomen Severity scale (0 -10): 0 Quality: other Consistency: other Improves with: other Worsens with: other - Related Data Previous Rx's Medication Instructions Recorded Last Taken Type Azithromycin [Zithromax Z-ROXANN] 250 mg PO DAILY #6 tablet 08/23/18 Unknown Rx Benzonatate [Tessalon Perle] 100 mg PO Q8H PRN #20 capsule 08/23/18 Unknown Rx Prednisone [predniSONE 10 mg 10 mg PO .TAPER #1 tab.ds.pk 08/23/18 Unknown Rx (6-Day Pack, 21 Tabs)] hydrOXYzine HCL [Atarax] 25 mg PO Q6HR PRN #20 tablet 10/12/18 Unknown Rx traMADol [Ultram 50 MG tab] 50 mg PO Q6HR PRN #20 tablet 10/12/18 Unknown Rx Dicyclomine [Bentyl] 10 mg PO QID PRN #20 capsule 05/08/19 Unknown Rx Famotidine [Pepcid] 20 mg PO BID #60 tablet 05/08/19 Unknown Rx Menthol/Camphor [[place] Picher 50 gm TP QID PRN #1 cream..g. 05/08/19 Unknown Rx Neck-Shoulder Cream] Metoclopramide [Reglan] 10 mg PO QID PRN #30 tablet 05/08/19 Unknown Rx Allergies Allergy/AdvReac Type Severity Reaction Status Date / Time acetaminophen [From Tylenol] Allergy Itching Verified 04/02/17 23:29 ketorolac tromethamine Allergy Rash Verified 06/07/18 14:22 [From Toradol] ED Review of Systems ROS: Stated complaint: HEART ISSUES SKIP A BEAT Other details as noted in HPI Constitutional: denies: diaphoresis Eyes: denies: eye discharge ENT: congestion Respiratory: denies: wheezing Cardiovascular: chest pain Gastrointestinal: abdominal pain, nausea. denies: vomiting Genitourinary: denies: dysuria Musculoskeletal: back pain, arthralgia, myalgia Skin: lesions (chronic skin discoloration on left volar aspect of the finger) Psychiatric: anxiety ED Past Medical Hx - Past Medical History Previous Medical History?: Yes Hx Hypertension: Yes (Noncompliant with Rx) Hx Congestive Heart Failure: No Hx Diabetes: No Hx GERD: Yes Hx Sickle Cell Disease: No Hx Arthritis: Yes Hx Asthma: No Hx COPD: No Hx HIV: No - Surgical History Past Surgical History?: No - Social History Smoking Status: Never Smoker Substance Use Type: None - Medications Home Medications: Home Medications Medication Instructions Recorded Confirmed Last Taken Type Azithromycin [Zithromax Z-ROXANN] 250 mg PO DAILY #6 tablet 08/23/18 Unknown Rx Benzonatate [Tessalon Perle] 100 mg PO Q8H PRN #20 capsule 08/23/18 Unknown Rx Prednisone [predniSONE 10 mg 10 mg PO .TAPER #1 tab.ds.pk 08/23/18 Unknown Rx (6-Day Pack, 21 Tabs)] hydrOXYzine HCL [Atarax] 25 mg PO Q6HR PRN #20 tablet 10/12/18 Unknown Rx traMADol [Ultram 50 MG tab] 50 mg PO Q6HR PRN #20 tablet 10/12/18 Unknown Rx Dicyclomine [Bentyl] 10 mg PO QID PRN #20 capsule 05/08/19 Unknown Rx Famotidine [Pepcid] 20 mg PO BID #60 tablet 05/08/19 Unknown Rx Menthol/Camphor [[place] Picher 50 gm TP QID PRN #1 cream..g. 05/08/19 Unknown Rx Neck-Shoulder Cream] Metoclopramide [Reglan] 10 mg PO QID PRN #30 tablet 05/08/19 Unknown Rx ED Physical Exam - General Limitations: No Limitations General appearance: alert, in no apparent distress, obese - Head Head exam: Present: atraumatic, normocephalic - Eye Eye exam: Present: normal appearance, EOMI. Absent: nystagmus - ENT ENT exam: Present: normal exam, normal orophraynx, mucous membranes moist, normal external ear exam - Neck Neck exam: Present: normal inspection, full ROM. Absent: tenderness, m eningismus - Respiratory Respiratory exam: Present: normal lung sounds bilaterally, chest wall tenderness, other (chaperoned by gilbert Marie). Absent: respiratory distress, wheezes, rales, rhonchi, stridor - Cardiovascular Cardiovascular Exam: Present: regular rate, normal rhythm, normal heart sounds. Absent: bradycardia, tachycardia, irregular rhythm, systolic murmur, diastolic murmur, rubs, gallop - GI/Abdominal GI/Abdominal exam: Present: soft. Absent: distended, tenderness, guarding, rebound, rigid, pulsatile mass - Extremities Exam Extremities exam: Present: normal inspection, full ROM, other (2+ pulses noted in the bilateral upper, lower extremities. Compartments soft. No long bony tenderness. The pelvis is stable.). Absent: pedal edema, joint swelling, calf tenderness - Back Exam Back exam: Present: normal inspection, full ROM. Absent: tenderness, CVA tenderness (L), paraspinal tenderness, vertebral tenderness - Neurological Exam Neurological exam: Present: alert, oriented X3, other (Extraocular movements intact. Tongue midline. No facial droop. Facial sensation intact to light touch in the V1, V2, V3 distribution bilaterally. 5 and 5 strength in 4 extremities.. Sensation is intact to light touch in 4 extremities.). Absent: motor sensory deficit - Psychiatric Psychiatric exam: Present: normal affect, normal mood - Skin Skin exam: Present: warm, dry, intact, normal color. Absent: rash ED Course Vital Signs 05/07/19 05/08/19 05/08/19 21:08 04:28 04:34 Temperature 98.8 F Pulse Rate 71 62 58 L Respiratory 18 17 16 Rate Blood Pressure 159/106 Blood Pressure 146/70 [Right] O2 Sat by Pulse 97 97 97 Oximetry - Reevaluation(s) Reevaluation #1: 05/08/19 05:27 Differential diagnosis, including not limited to: GERD, gastritis, costochondritis, hiatal hernia, pneumonia, acute coronary syndrome, chronic abdominal pain, Assessment and plan: 39-year-old female, reports no pulmonary embolism or DVT risk factors, low risk by well's criteria, perc negative, low risk by heart score, juan score, who has no abdominal tenderness, rebound or guarding. She endorses no urinary symptoms. is unlikely, however, the patient states that she is not sure if she is or not. Unfortunately, she is allergic to Tylenol and Toradol. Therefore, she will be treated with nonnarcotic medications that she is able to tolerate. We have recommended a urinalysis to screen for bacteriuria, as well as a evaluation. Reevaluation #2: 05/08/19 05:4 hcg negative--> will discharge Lab Results 05/07/19 05/07/19 05/08/19 Range/Units 21:47 21:47 00:10 WBC 7.3 (4.5-11.0) K/mm3 RBC 4.89 (3.65-5.03) M/mm3 Hgb 15.3 H (10.1-14.3) gm/dl Hct 44.0 H (30.3-42.9) % MCV 90 (79-97) fl MCH 31 (28-32) pg MCHC 35 H (30-34) % RDW 14.1 (13.2-15.2) % Plt Count 278 (140-440) K/mm3 Lymph % (Auto) 26.5 (13.4-35.0) % Johnston % (Auto) 5.2 (0.0-7.3) % Eos % (Auto) 0.3 (0.0-4.3) % Baso % (Auto) 0.5 (0.0-1.8) % Lymph # 1.9 (1.2-5.4) K/mm3 Johnston # 0.4 (0.0-0.8) K/mm3 Eos # 0.0 (0.0-0.4) K/mm3 Baso # 0.0 (0.0-0.1) K/mm3 Seg Neutrophils % 67.5 (40.0-70.0) % Seg Neutrophils # 4.9 (1.8-7.7) K/mm3 Sodium 137 (137-145) mmol/L Potassium 4.1 (3.6-5.0) mmol/L Chloride 103.9 (98-107) mmol/L Carbon Dioxide 21 L (22-30) mmol/L Anion Gap 16 mmol/L BUN 11 (7-17) mg/dL Creatinine 0.7 (0.7-1.2) mg/dL Estimated GFR > 60 ml/min BUN/Creatinine Ratio 16 % Glucose 110 H (65-100) mg/dL Calcium 8.9 (8.4-10.2) mg/dL Troponin T < 0.010 < 0.010 (0.00-0.029) ng/mL Urine Color (Yellow) Urine Turbidity (Clear) Urine pH (5.0-7.0) Ur Specific [place] (1.003-1.030) Urine Protein (Negative) mg/dL Urine Glucose (UA) (Negative) mg/dL Urine Ketones (Negative) mg/dL Urine Blood (Negative) Urine Nitrite (Negative) Urine Bilirubin (Negative) Urine Urobilinogen (<2.0) mg/dL Ur Leukocyte Esterase (Negative) Urine WBC (Auto) (0.0-6.0) /HPF Urine RBC (Auto) (0.0-6.0) /HPF U Epithel Cells (Auto) (0-13.0) /HPF Urine Bacteria (Auto) (Negative) /HPF Urine Mucus /HPF Urine HCG, Qual (Negative) 05/08/19 05/08/19 Range/Units 02:50 05:00 WBC (4.5-11.0) K/mm3 RBC (3.65-5.03) M/mm3 Hgb (10.1-14.3) gm/dl Hct (30.3-42.9) % MCV (79-97) fl MCH (28-32) pg MCHC (30-34) % RDW (13.2-15.2) % Plt Count (140-440) K/mm3 Lymph % (Auto) (13.4-35.0) % Johnston % (Auto) (0.0-7.3) % Eos % (Auto) (0.0-4.3) % Baso % (Auto) (0.0-1.8) % Lymph # (1.2-5.4) K/mm3 Johnston # (0.0-0.8) K/mm3 Eos # (0.0-0.4) K/mm3 Baso # (0.0-0.1) K/mm3 Seg Neutrophils % (40.0-70.0) % Seg Neutrophils # (1.8-7.7) K/mm3 Sodium (137-145) mmol/L Potassium (3.6-5.0) mmol/L Chloride (98-107) mmol/L Carbon Dioxide (22-30) mmol/L Anion Gap mmol/L BUN (7-17) mg/dL Creatinine (0.7-1.2) mg/dL Estimated GFR ml/min BUN/Creatinine Ratio % Glucose (65-100) mg/dL Calcium (8.4-10.2) mg/dL Troponin T < 0.010 (0.00-0.029) ng/mL Urine Color Yellow (Yellow) Urine Turbidity Slightly-cloudy (Clear) Urine pH 5.0 (5.0-7.0) Ur Specific [place] 1.021 (1.003-1.030) Urine Protein <15 mg/dl (Negative) mg/dL Urine Glucose (UA) Neg (Negative) mg/dL Urine Ketones 20 (Negative) mg/dL Urine Blood Neg (Negative) Urine Nitrite Neg (Negative) Urine Bilirubin Neg (Negative) Urine Urobilinogen < 2.0 (<2.0) mg/dL Ur Leukocyte Esterase Sm (Negative) Urine WBC (Auto) 2.0 (0.0-6.0) /HPF Urine RBC (Auto) 2.0 (0.0-6.0) /HPF U Epithel Cells (Auto) 7.0 (0-13.0) /HPF Urine Bacteria (Auto) 1+ (Negative) /HPF Urine Mucus 3+ /HPF Urine HCG, Qual Negative (Negative) 05/08/19 05:59 ED Medical Decision Making - Lab Data Result diagrams: 05/07/19 21:47 05/07/19 21:47 Vital Signs 05/07/19 05/08/19 05/08/19 21:08 04:28 04:34 Temperature 98.8 F Pulse Rate 71 62 58 L Respiratory 18 17 16 Rate Blood Pressure 159/106 Blood Pressure 146/70 [Right] O2 Sat by Pulse 97 97 97 Oximetry Lab Results 05/07/19 05/07/19 05/08/19 Range/Units 21:47 21:47 00:10 WBC 7.3 (4.5-11.0) K/mm3 RBC 4.89 (3.65-5.03) M/mm3 Hgb 15.3 H (10.1-14.3) gm/dl Hct 44.0 H (30.3-42.9) % MCV 90 (79-97) fl MCH 31 (28-32) pg MCHC 35 H (30-34) % RDW 14.1 (13.2-15.2) % Plt Count 278 (140-440) K/mm3 Lymph % (Auto) 26.5 (13.4-35.0) % Johnston % (Auto) 5.2 (0.0-7.3) % Eos % (Auto) 0.3 (0.0-4.3) % Baso % (Auto) 0.5 (0.0-1.8) % Lymph # 1.9 (1.2-5.4) K/mm3 Johnston # 0.4 (0.0-0.8) K/mm3 Eos # 0.0 (0.0-0.4) K/mm3 Baso # 0.0 (0.0-0.1) K/mm3 Seg Neutrophils % 67.5 (40.0-70.0) % Seg Neutrophils # 4.9 (1.8-7.7) K/mm3 Sodium 137 (137-145) mmol/L Potassium 4.1 (3.6-5.0) mmol/L Chloride 103.9 (98-107) mmol/L Carbon Dioxide 21 L (22-30) mmol/L Anion Gap 16 mmol/L BUN 11 (7-17) mg/dL Creatinine 0.7 (0.7-1.2) mg/dL Estimated GFR > 60 ml/min BUN/Creatinine Ratio 16 % Glucose 110 H (65-100) mg/dL Calcium 8.9 (8.4-10.2) mg/dL Troponin T < 0.010 < 0.010 (0.00-0.029) ng/mL 05/08/19 Range/Units 02:50 WBC (4.5-11.0) K/mm3 RBC (3.65-5.03) M/mm3 Hgb (10.1-14.3) gm/dl Hct (30.3-42.9) % MCV (79-97) fl MCH (28-32) pg MCHC (30-34) % RDW (13.2-15.2) % Plt Count (140-440) K/mm3 Lymph % (Auto) (13.4-35.0) % Johnston % (Auto) (0.0-7.3) % Eos % (Auto) (0.0-4.3) % Baso % (Auto) (0.0-1.8) % Lymph # (1.2-5.4) K/mm3 Johnston # (0.0-0.8) K/mm3 Eos # (0.0-0.4) K/mm3 Baso # (0.0-0.1) K/mm3 Seg Neutrophils % (40.0-70.0) % Seg Neutrophils # (1.8-7.7) K/mm3 Sodium (137-145) mmol/L Potassium (3.6-5.0) mmol/L Chloride (98-107) mmol/L Carbon Dioxide (22-30) mmol/L Anion Gap mmol/L BUN (7-17) mg/dL Creatinine (0.7-1.2) mg/dL Estimated GFR ml/min BUN/Creatinine Ratio % Glucose (65-100) mg/dL Calcium (8.4-10.2) mg/dL Troponin T < 0.010 (0.00-0.029) ng/mL - EKG Data -: EKG Interpreted by Me EKG shows normal: sinus rhythm Rate: normal - EKG Data 05/08/19 05:26 EKG #1 shows a sinus rhythm, 62 bpm, normal axis, QTC within normal limits, motion artifact, not consistent with ST elevation myocardial infarction. EKG #2 was unchanged from prior. Both EKGs unchanged from initial EKG from 2017. - Radiology Data Radiology results: pending, report reviewed, image reviewed Print Report Referring Physician: ED DOC Patient Name: MAME YUN Date of : 1980 Sex: Female Report Date: 2019-05-07 Report Status: Finalized Findings [facility] [address] [place] [address] XRay Report Signed Patient: MAME YUN MR #: [id number] : 1980 Acct:[id number] Age/Sex: 39 / F ADM Date: 05/07/19 Loc: ED Attending Dr: Ordering Physician: WILL CARR MD Date of Service: 05/07/19 Procedure(s): XR chest 1V ap Accession Number(s): [id number] cc: WILL CARR MD Fluoro Time In Minutes: CHEST PA AND LATERAL VIEWS INDICATION: Chest Pain. COMPARISON: None. FINDINGS: Support devices: None. Heart: Within normal limits. Lungs/Pleura: No acute pulmonary or pleural findings. IMPRESSION: 1. No significant abnormality. Signer Name: Mert Wheeler MD Signed: 05/07/2019 9:44 PM Workstation Name: [email or web address] Transcribed By: JORIGTO Dictated By: Mert Wheeler MD Electronically Authenticated By: Mert Wheeler MD Signed Date/Time: 05/07/192143 Critical care attestation.: If time is entered above; I have spent that time in minutes in the direct care of this critically ill patient, excluding procedure time. ED Disposition Clinical Impression: Musculoskeletal chest pain Disposition: DC-01 TO HOME OR SELFCARE Is pt being admited?: No Does the pt Need Aspirin: No Condition: Stable Instructions: Chest Pain (ED) Additional Instructions: Avoid consumption of Motrin, ibuprofen, Naprosyn, Aleve, heavy, spicy foods. Take the pain medication, nausea medication as needed/directed. Participate in physical activities as tolerated, recommend weight loss, and diet modification, to avoid consumption of sugary foods, simple carbohydrates, and consume more fiber, lean protein, and vegetables. Follow-up with the primary care doctor or branch retail executive within the next 5-7 days. Return to the emergency room right away with new, worsening or different sym ptoms, or symptoms not present on the initial emergency room evaluation. Prescriptions: Dicyclomine [Bentyl] 10 mg PO QID PRN #20 capsule PRN Reason: Pain Famotidine [Pepcid] 20 mg PO BID #60 tablet Metoclopramide [Reglan] 10 mg PO QID PRN #30 tablet PRN Reason: Nausea Menthol/Camphor [Mission Picher Neck-Shoulder Cream] 50 gm TP QID PRN #1 cream..g. PRN Reason: Pain, Moderate (4-6) Referrals: BRIT JULIAN MD [Primary Care Provider] - 3-5 Days [facility] [Provider Group] - 3-5 Days [facility] [Provider Group] - 3-5 Days
[2019-05-08 05:56] LABS: Bacteria,Urine 1+ /HPF (Negative); Bilirubin,Urine NEG (Negative); Blood,Urine NEG (Negative); Color,Urine Yellow (Yellow); Mucus,Urine 3+ /HPF; Protein,Urine <15 mg/dL mg/dL (Negative); Urobilinogen,Urine < 2.0 mg/dL (<2.0)
[2019-05-08 05:59] LABS: HCG Qualitative,Urine Negative (Negative)
[2019-05-08 06:08] VITALS: BP 136/70
== END 2019-05-08 06:09 | disposition home or self-care (01) ==
LOC: ED 20:41
DX: R07.89 Other chest pain (principal); I10 Essential (primary) hypertension; K21.9 Gastro-esophageal reflux disease without esophagitis; Z79.899 Other long term (current) drug therapy; Z88.6 Allergy status to analgesic agent
CPT/HCPCS: 36415; 71045; 80048; 81001; 81025; 84484; 85025; 93005; 93010; 99284

== ENCOUNTER 2019-07-20 12:42 | Emergency (ER) | payer SELFPAY ==
[2019-07-20] MEDS ORDERED: TETANUS,DIPH,PERTUSS(ACELL) VACCINE 0.5 ML SYRINGE IM ONE (13:14)
--- NOTE | 2019-07-20 13:15 | Emergency Department Report ---
Blank Doc - Documentation Documentation: 39-year-old female that presents with left foot/toe lac after fall on the rock. This initial assessment/diagnostic orders/clinical plan/treatment(s) is/are subject to change based on patient's health status, clinical progression and re- assessment by fellow clinical providers in the ED. Further treatment and workup at subsequent clinical providers discretion. Patient/guardians urged not to elope from the ED as their condition may be serious if not clinically assessed and managed. Initial orders include: 1- Patient sent to [facility] for further evaluation and treatment 2- xrays 3- tetanus
--- NOTE | 2019-07-20 13:59 | XRay Report ---
XR foot 3+V LT INDICATION / CLINICAL INFORMATION: left foot pain. COMPARISON: None available. FINDINGS: BONES/JOINT(S): No acute fracture or subluxation. No significant degenerative changes. There is an ac cessory os peroneum. SOFT TISSUES: No significant abnormality. ADDITIONAL FINDINGS: None. Signer Name: Hamilton Yuan MD Signed: 07/20/2019 1:54 PM Workstation Name: [id number]
[2019-07-20] MEDS ORDERED: LIDOCAINE (2%) 20 MG/1 ML VIAL 20 ML MDV INFILTRATI ONE (16:39)
--- NOTE | 2019-07-20 16:39 | Emergency Department Report ---
ED Laceration HPI - HPI Chief Complaint: Laceration/Recheck/Suture Stated Complaint: CUT RT FOOT/WEAK Time Seen by Provider: 07/20/19 13:14 Occurred When: Yesterday Location: Lower Extremity (left 5th toe) Severity: severe Tetanus Status: Not up to Date Laceration Symptoms: Yes Pain, No Foreign Body Sensation, No Numbness, No Weakness Other History: There is a 39-year-old -Stateless female who presents to the emergency room with a laceration to left fifth toe. Patient states she stepped on a rock yesterday and it cut through her shoe. She reports worsening pain when walking or standing. States she is unable to move her toe at all due to pain. She can't remember her last tetanus vaccine. She denies numbness or tingling, drainage, weakness, paresthesias. ED Review of Systems ROS: Stated complaint: CUT RT FOOT/WEAK Other details as noted in HPI Constitutional: denies: chills, fever Respiratory: denies: cough, shortness of breath, wheezing Cardiovascular: denies: chest pain, palpitations Musculoskeletal: denies: back pain, joint swelling, arthralgia Skin: lesions (laceration of left 5th toe). denies: rash Neurological: denies: headache, weakness, paresthesias Psychiatric: denies: anxiety, depression ED Past Medical Hx - Past Medical History Previous Medical History?: Yes Hx Hypertension: Yes (Noncompliant with Rx) Hx Congestive Heart Failure: No Hx Diabetes: No Hx GERD: Yes Hx Sickle Cell Disease: No Hx Arthritis: Yes Hx Asthma: No Hx COPD: No Hx HIV: No - Surgical History Past Surgical History?: No - Social History Smoking Status: Never Smoker Substance Use Type: None - Medications Home Medications: Home Medications Medication Instructions Recorded Confirmed Last Taken Type Azithromycin [Zithromax Z-ROXANN] 250 mg PO DAILY #6 tablet 08/23/18 Unknown Rx Benzonatate [Tessalon Perle] 100 mg PO Q8H PRN #20 capsule 08/23/18 Unknown Rx Prednisone [predniSONE 10 mg 10 mg PO .TAPER #1 tab.ds.pk 08/23/18 Unknown Rx (6-Day Pack, 21 Tabs)] hydrOXYzine HCL [Atarax] 25 mg PO Q6HR PRN #20 tablet 10/12/18 Unknown Rx traMADol [Ultram 50 MG tab] 50 mg PO Q6HR PRN #20 tablet 10/12/18 Unknown Rx Dicyclomine [Bentyl] 10 mg PO QID PRN #20 capsule 05/08/19 Unknown Rx Famotidine [Pepcid] 20 mg PO BID #60 tablet 05/08/19 Unknown Rx Menthol/Camphor [[place] 50 gm TP QID PRN #1 cream..g. 05/08/19 Unknown Rx Neck-Shoulder Cream] Metoclopramide [Reglan] 10 mg PO QID PRN #30 tablet 05/08/19 Unknown Rx Sulfamethoxazole/Trimethoprim 1 each PO BID #14 tablet 07/20/19 Unknown Rx [Bactrim DS TAB] Laceration Physical Exam - Exam General: Vital signs noted. No distress. Alert and acting appropriately. Wound Length (cm): 3 Laceration Location: Lower Extremity (left 5th toe) Full Body Front + Back: 1 - 3 cm irregular laceration into dermis of left 5th proximal toe, flap, no visual tendon, or vessels, limited ROM, pulses 2+, no cyanosis, no clubbing, capillary refill is brisk. Laceration Exam: Yes Normal Distal CMS, No Foreign Body, No Exposed Tendon, Vessel, or Nerve, No Tendon Injury ED Course Vital Signs 07/20/19 13:13 Temperature 99 F Pulse Rate 75 Respiratory 16 Rate Blood Pressure 150/97 O2 Sat by Pulse 99 Oximetry - Laceration /Wound Repair Left Posterior Proximal Plantar Toe Wound Location: lower extremity (5th proximal toe) Wound Length (cm): 3 Wound's Depth, Shape: into muscle, irregular, flap Wound Explored: no foreign body removed Irrigated w/ Saline (ccs): 20 Betadine Prep?: Yes Anesthesia: 1% Lidocaine Volume Anesthetic (ccs): 5 Wound Debrided: minimal Wound Repaired With: sutures Suture Size/Type: 4:0 Number of Sutures: 8 Layer Closure?: No Sterile Dressing Applied?: Yes ED Medical Decision Making - Radiology Data Radiology results: report reviewed XR foot 3+V LT INDICATION / CLINICAL INFORMATION: left foot pain. COMPARISON: None available. FINDINGS: BONES/JOINT(S): No acute fracture or subluxation. No significant degenerative changes. There is an accessory os peroneum. SOFT TISSUES: No significant abnormality. ADDITIONAL FINDINGS: None. - Medical Decision Making This is a 39 y.o. female presents with left 5th toe laceration. Patient examined by me. X-ray of left foot obtained and no acute findings. Patient is non-toxic appearing and stable. Laceration closed with sutures, review note. Patient given Boostrix vaccine while in the ER. Discharged home for outpatient treatment with bactrim DS. Discussed ER care plan with patient. Patient agreed with plan. F/U with PCP. Critical care attestation.: If time is entered above; I have spent that time in minutes in the direct care of this critically ill patient, excluding procedure time. ED Disposition Clinical Impression: Laceration of toe of left foot Qualifiers: Encounter type: initial encounter Toe: lesser toe Damage to nail status: without damage Foreign body presence: without foreign body Qualified Code(s): S91.115A - Laceration without foreign body of left lesser toe(s) without damage to nail, initial encounter Disposition: DC- TO HOME OR SELFCARE Is pt being admited?: No Condition: Stable Instructions: Suture Care (ED), Laceration (ED) Additional Instructions: Take antibiotics as prescribed for the full course. Keep wound dry and clean for 48 hours. Avoid putting to much tension on wound site. Prop foot up on pillows to decrease swelling. Follow up with Primary Care Provider in 2-3 days. Have sutures removed in 7-10 days by primary care provider or in ER. Return to ER if red, swollen, foul discharge, or fever. Prescriptions: Sulfamethoxazole/Trimethoprim [Bactrim DS TAB] 1 each PO BID #14 tablet Referrals: [facility] [Outside] - 3-5 Days [facility] [Outside] - 3-5 Days [facility] [Outside] - 3-5 Days Forms: Work/School Release Form(ED) Time of Disposition: 19:10
[2019-07-20 19:49] VITALS: BP 149/94
== END 2019-07-20 19:49 | disposition home or self-care (01) ==
LOC: ED 12:42
DX: S91.115A Laceration without foreign body of left lesser toe(s) without damage to nail, initial encounter (principal); I10 Essential (primary) hypertension; K21.9 Gastro-esophageal reflux disease without esophagitis; M19.90 Unspecified osteoarthritis, unspecified site; Z79.899 Other long term (current) drug therapy; Z88.8 Allergy status to other drugs, medicaments and biological substances; W26.8XXA Contact with other sharp object(s), not elsewhere classified, initial encounter; Y93.89 Activity, other specified; Y92.89 Other specified places as the place of occurrence of the external cause; Y99.8 Other external cause status
CPT/HCPCS: 90471; 90715

== ENCOUNTER 2019-08-08 18:08 | Emergency (ER) | payer SELFPAY ==
[2019-08-08 18:30] VITALS: BP 153/87
--- NOTE | 2019-08-08 18:36 | Emergency Department Report ---
Suture/Staple Removal - [facility] Chief Complaint: Extremity Problem,Nontraumatic Stated Complaint: LFT FOOT STITCHS REMOVED Time Seen by Provider: 08/08/19 18:28 When Sutures or Flory Placed: >14 Days Ago Wound Location: left 5th toe ED Review of Systems ROS: Stated complaint: LFT FOOT STITCHS REMOVED Other details as noted in HPI Constitutional: denies: chills, fever Eyes: denies: eye pain, eye discharge, vision change ENT: denies: ear pain, throat pain Respiratory: denies: cough, shortness of breath, wheezing Cardiovascular: denies: chest pain, palpitations Endocrine: no symptoms reported Gastrointestinal: denies: abdominal pain, nausea, diarrhea Genitourinary: denies: urgency, dysuria, discharge Musculoskeletal: denies: back pain, joint swelling, arthralgia Skin: denies: rash, lesions Neurological: denies: headache, weakness, paresthesias Psychiatric: denies: anxiety, depression Hematological/Lymphatic: denies: easy bleeding, easy bruising ED Past Medical Hx - Past Medical History Previous Medical History?: Yes Hx Hypertension: Yes (Noncompliant with Rx) Hx Congestive Heart Failure: No Hx Diabetes: No Hx GERD: Yes Hx Sickle Cell Disease: No Hx Arthritis: Yes Hx Asthma: No Hx COPD: No Hx HIV: No - Surgical History Past Surgical History?: No - Social History Smoking Status: Current Every Day Smoker Substance Use Type: None - Medications Home Medications: Home Medications Medication Instructions Recorded Confirmed Last Taken Type Azithromycin [Zithromax Z-ROXANN] 250 mg PO DAILY #6 tablet 08/23/18 Unknown Rx Benzonatate [Tessalon Perle] 100 mg PO Q8H PRN #20 capsule 08/23/18 Unknown Rx Prednisone [predniSONE 10 mg 10 mg PO .TAPER #1 tab.ds.pk 08/23/18 Unknown Rx (6-Day Pack, 21 Tabs)] hydrOXYzine HCL [Atarax] 25 mg PO Q6HR PRN #20 tablet 10/12/18 Unknown Rx traMADoL [Ultram 50 MG tab] 50 mg PO Q6HR PRN #20 tablet 10/12/18 Unknown Rx Dicyclomine [Bentyl] 10 mg PO QID PRN #20 capsule 05/08/19 Unknown Rx Famotidine [Pepcid] 20 mg PO BID #60 tablet 05/08/19 Unknown Rx Menthol/Camphor [[place] 50 gm TP QID PRN #1 cream..g. 05/08/19 Unknown Rx Neck-Shoulder Cream] Metoclopramide [Reglan] 10 mg PO QID PRN #30 tablet 05/08/19 Unknown Rx Sulfamethoxazole/Trimethoprim 1 each PO BID #14 tablet 07/20/19 Unknown Rx [Bactrim DS TAB] traMADoL [Ultram 50 MG tab] 50 mg PO Q6HR PRN #12 tablet 07/20/19 Unknown Rx Suture Removal Exam - Exam General: Vital signs noted. No distress. Alert and acting appropriately. Wound: No Pathologic Erythema, No Tenderness, No Drainage, No Pus, No Wound Dehiscence Other Systems: All other systems reviewed and are unremarkable. ED Course Vital Signs 08/08/19 18:29 Temperature 98.1 F Pulse Rate 72 Respiratory 16 Rate Blood Pressure 153/87 O2 Sat by Pulse 100 Oximetry - Reevaluation(s) Reevaluation #1: 08/08/19 18:34 Patient is speaking in full sentences with no signs of distres noted. ED Recheck MDM - Medical Decision Making total of 8 running sutures has been removed. Well healing. Patient was instructed to Follow-up with a primary care doctor in 3-5 days or if symptoms worsen and continue return to emergency room as soon as possible. At time of discharge, the patient does not seem toxic or ill in appearance. No acute signs of distress noted. Patient agrees to discharge treatment plan of care. No further questions noted by the patient. Critical care attestation.: If time is entered above; I have spent that time in minutes in the direct care of this critically ill patient, excluding procedure time. ED Disposition Clinical Impression: Visit for suture removal Disposition: DC-01 TO HOME OR SELFCARE Is pt being admited?: No Does the pt Need Aspirin: No Condition: Stable Instructions: Suture Removal (ED) Additional Instructions: Follow-up with a primary care doctor in 3-5 days or if symptoms worsen and continue return to emergency room as soon as possible. Referrals: PRIMARY CARE, [Referring] - 3-5 Days VICKY CORTEZ MD [Staff Physician] - 3-5 Days [facility] [Outside] - 3-5 Days [facility] [Outside] - 3-5 Days Forms: Work/School Release Form(ED)
== END 2019-08-08 19:18 | disposition home or self-care (01) ==
LOC: ED 18:08
DX: S91.115D Laceration without foreign body of left lesser toe(s) without damage to nail, subsequent encounter (principal); I10 Essential (primary) hypertension; K21.9 Gastro-esophageal reflux disease without esophagitis; F17.200 Nicotine dependence, unspecified, uncomplicated; Z88.6 Allergy status to analgesic agent; X58.XXXD Exposure to other specified factors, subsequent encounter

== ENCOUNTER 2019-09-02 21:23 | Emergency (ER) | payer SELFPAY ==
[2019-09-02 21:53] VITALS: BP 150/81
== END 2019-09-03 01:00 | disposition left against medical advice (07) ==
LOC: ED 21:23
DX: R05 Cough (principal); R07.89 Other chest pain; R09.89 Other specified symptoms and signs involving the circulatory and respiratory systems; Z53.21 Procedure and treatment not carried out due to patient leaving prior to being seen by health care provider

== ENCOUNTER 2019-09-04 16:01 | Emergency (ER) | payer SELFPAY ==
[2019-09-04 16:33] VITALS: BP 141/80
--- NOTE | 2019-09-04 18:00 | Emergency Department Report ---
Chief Complaint: Upper Respiratory Infection Stated Complaint: COLD/FLU SYM Time Seen by Provider: 09/04/19 17:54 - HPI History of Present Illness: This is a 39-year-old female that presents to the ED with complaint of cough, congestion, and myalgia x 1 week. Patient denies any drooling or hoarseness. Patient denies any other symptoms. Denies any fever, chills, headache, nausea, vomiting, chest pain or SOB. Denies any other complaints. - ROS Review of Systems: ROS: Stated complaint: cough and congestion Other details as noted in HPI Constitutional: chills ENT: congestion. denies: ear pain, throat pain. Respiratory: cough. denies: shortness of breath, SOB with exertion, wheezing Cardiovascular: denies: palpitations, chest pain Gastrointestinal: denies: abdominal pain, nausea, diarrhea Musculoskeletal: denies: back pain, joint swelling, arthralgia Skin: denies: rash, lesions Neurological: denies: headache, weakness, paresthesias Psychiatric: denies: anxiety, depression - Exam Vital Signs: Vital Signs 09/04/19 16:30 Temperature 98.5 F Pulse Rate 74 Respiratory 16 Rate Blood Pressure 141/80 O2 Sat by Pulse 100 Oximetry Physical Exam: General: Vital signs noted. No distress. Alert and acting appropriately. HEENT: Yes Moist Mucous Membranes, Yes Rhinorrhea (turbinates mildly congested with clear discharge), No pharynx Erythema (uvula midline), No Pharyngeal Exudates, No Conjuctival Injection, No Frontal Tenderness, No Maxillary Tenderness Ear: Neither TM Bulge, Neither TM Erythema, Neither EAC Pain, Neither EAC Discharge, Neither Cerumen Impaction Neck: Yes Supple, No Adenopathy Lungs: Yes Good Air Exchange, No Wheezes, No Ronchi, No Stridor, No Cough, No Labored Respirations, No Retractions, No Use of Accessory Muscles, No Other Abnormal Lung Sounds Heart: Yes Regular, No Murmur Abdomen: Yes Normal Bowel Sounds, No Tenderness, No Peritoneal Signs Skin: No Rash, No Eczema Neurologic: Alert and oriented, no deficits. MSE screening note: Focused history and physical exam performed. Due to findings the following was ordered: ED Medical Decision Making - Medical Decision Making This is a 39-year-old female that presents with URI symptoms x 1 week. Patient is nonfebrile and normal heart rate. Patient is stable and was examined by me. Due to patient having symptoms of upper respiratory infection and normal vital signs this is non-emergent. Patient was instructed to increase hydration, rest and take Motrin for aches. Vitals stable. Patient was instructed Follow-up with a primary care doctor in 3-5 days or if symptoms worsen and continue return to emergency room as soon as possible. At time time of discharge, the patient does not seem toxic or ill in appearance. No acute signs of distress noted. Patient agrees to discharge treatment plan of care. No further questions noted by the patient. ED Disposition for MSE Clinical Impression: Feared complaint without diagnosis Disposition: DC-01 TO HOME OR SELFCARE Is pt being admited?: No Condition: Stable Instructions: Upper Respiratory Infection (ED), Cold Symptoms (ED) Additional Instructions: Increase fluid intake. Wash hands daily. Take [id number] cold and flu medication for symptom relief. Follow-up with a primary care doctor in 3-5 days or if symptoms worsen and c ontinue return to the emergency department as soon as possible. Referrals: [facility] [Outside] - 3-5 Days [facility] [Outside] - 3-5 Days [facility] [Outside] - 3-5 Days FREEDOM RODAS MD [Staff Physician] - 3-5 Days Time of Disposition: 18:16
== END 2019-09-04 18:24 | disposition home or self-care (01) ==
LOC: ED 16:01
DX: R05 Cough (principal); R09.81 Nasal congestion; M79.10 Myalgia, unspecified site; Z88.6 Allergy status to analgesic agent

== ENCOUNTER 2019-10-10 21:49 | Emergency (ER) | payer SELFPAY ==
--- NOTE | 2019-10-10 22:02 | Emergency Department Report ---
Blank Doc - Documentation Documentation: 39-year-old female that presents with chest pain, dizziness, SOB, and n/v. This initial assessment/diagnostic orders/clinical plan/treatment(s) is/are subject to change based on patient's health status, clinical progression and re- assessment by fellow clinical providers in the ED. Further treatment and workup at subsequent clinical providers discretion. Patient/guardians urged not to elope from the ED as their condition may be serious if not clinically assessed and managed. Initial orders include: 1- Patient sent to [facility] for further evaluation and treatment 2- EKG 3- labs 4- CXR
[2019-10-10 23:30] LABS: Basophils % (Auto) 0.8 % (0.0-1.8); Eosinophils # (Auto) 0.1 K/mm3 (0.0-0.4); Eosinophils % (Auto) 1.1 % (0.0-4.3); Hematocrit 39.7 % (30.3-42.9); Hemoglobin 13.3 gm/dl (10.1-14.3); Lymphocytes % (Auto) 42.2 % (13.4-35.0); Mean Corpuscular HGB Conc 33 % (30-34); Mean Corpuscular Volume 90 fl (79-97); Monocytes # (Auto) 0.5 K/mm3 (0.0-0.8); Monocytes % (Auto) 9.9 % (0.0-7.3); Platelet Count 290 K/mm3 (140-440); Red Blood Count 4.39 M/mm3 (3.65-5.03); Red Cell Distribution Width 13.9 % (13.2-15.2)
[2019-10-10 23:56] LABS: Alanine Aminotransferase 10 units/L (7-56); BUN/Creatinine Ratio 13; Blood Urea Nitrogen 9 mg/dL (7-17); Calcium 9.2 mg/dL (8.4-10.2); Hemolysis Index 5
--- NOTE | 2019-10-11 00:38 | XRay Report ---
CHEST PA AND LATERAL VIEWS INDICATION: Chest Pain. COMPARISON: 05/07/2019 FINDINGS: Support devices: None. Heart: Within normal limits. Lungs/Pleura: No acute pulmonary or pleural findings. IMPRESSION: 1. No acute findings. Signer Name: Mert Wheeler MD Signed: 10/11/2019 12:34 AM Workstation Name: [id number]
--- NOTE | 2019-10-11 00:40 | Emergency Department Report ---
ED Chest Pain HPI - General Chief Complaint: Chest Pain Stated Complaint: CHEST PAIN Time Seen by Provider: 10/10/19 22:01 Source: patient Mode of arrival: Ambulatory Limitations: No Limitations - History of Present Illness Initial Comments: Mrs. Arias is a 39-year-old female with history of hypertension GERD arthritis who's had mid chest pain for 2 weeks. Mild cough. Mild shortness of breath. Positive generalized weakness weakness with nausea. She also has non-nasal congestion. Nondescript pain mild center in location. No association with exertion. Denies leg pain. No travel. No use of oral contraceptives. In 2014 patient had normal myocardial perfusion scan here at this hospital MD Complaint: chest pain -: Gradual Onset: during rest Severity: mild Severity scale (0 -10): 4 Quality: aching Consistency: constant Improves With: nothing Worsens With: nothing - Related Data Previous Rx's Medication Instructions Recorded Last Taken Type Azithromycin [Zithromax Z-ROXANN] 250 mg PO DAILY #6 tablet 08/23/18 Unknown Rx Benzonatate [Tessalon Perle] 100 mg PO Q8H PRN #20 capsule 08/23/18 Unknown Rx Prednisone [predniSONE 10 mg 10 mg PO .TAPER #1 tab.ds.pk 08/23/18 Unknown Rx (6-Day Pack, 21 Tabs)] hydrOXYzine HCL [Atarax] 25 mg PO Q6HR PRN #20 tablet 10/12/18 Unknown Rx traMADoL [Ultram 50 MG tab] 50 mg PO Q6HR PRN #20 tablet 10/12/18 Unknown Rx Dicyclomine [Bentyl] 10 mg PO QID PRN #20 capsule 05/08/19 Unknown Rx Famotidine [Pepcid] 20 mg PO BID #60 tablet 05/08/19 Unknown Rx Menthol/Camphor [[place] 50 gm TP QID PRN #1 cream..g. 05/08/19 Unknown Rx Neck-Shoulder Cream] Metoclopramide [Reglan] 10 mg PO QID PRN #30 tablet 05/08/19 Unknown Rx Sulfamethoxazole/Trimethoprim 1 each PO BID #14 tablet 07/20/19 Unknown Rx [Bactrim DS TAB] traMADoL [Ultram 50 MG tab] 50 mg PO Q6HR PRN #12 tablet 07/20/19 Unknown Rx Allergies Allergy/AdvReac Type Severity Reaction Status Date / Time acetaminophen [From Tylenol] Allergy Itching Verified 04/02/17 23:29 ketorolac tromethamine Allergy Rash Verified 06/07/18 14:22 [From Toradol] Heart Score - HEART Score History: Slightly suspicious EKG: Normal Age: < 45 Risk factors: No known risk factors Troponin: < normal limit HEART Score: 0 ED Review of Systems ROS: Stated complaint: CHEST PAIN Other details as noted in HPI Comment: All other systems reviewed and negative Respiratory: shortness of breath. denies: cough Cardiovascular: chest pain ED Past Medical Hx - Past Medical History Previous Medical History?: Yes Hx Hypertension: Yes (Noncompliant with Rx) Hx Congestive Heart Failure: No Hx Diabetes: No Hx GERD: Yes Hx Sickle Cell Disease: No Hx Arthritis: Yes Hx Asthma: No Hx COPD: No Hx HIV: No - Family History Family history: hypertension - Social History Smoking Status: Current Every Day Smoker Substance Use Type: None - Medications Home Medications: Home Medications Medication Instructions Recorded Confirmed Last Taken Type Azithromycin [Zithromax Z-ROXANN] 250 mg PO DAILY #6 tablet 08/23/18 Unknown Rx Benzonatate [Tessalon Perle] 100 mg PO Q8H PRN #20 capsule 08/23/18 Unknown Rx Prednisone [predniSONE 10 mg 10 mg PO .TAPER #1 tab.ds.pk 08/23/18 Unknown Rx (6-Day Pack, 21 Tabs)] hydrOXYzine HCL [Atarax] 25 mg PO Q6HR PRN #20 tablet 10/12/18 Unknown Rx traMADoL [[place]am 50 MG tab] 50 mg PO Q6HR PRN #20 tablet 10/12/18 Unknown Rx Dicyclomine [Bentyl] 10 mg PO QID PRN #20 capsule 05/08/19 Unknown Rx Famotidine [Pepcid] 20 mg PO BID #60 tablet 05/08/19 Unknown Rx Menthol/Camphor [[place] 50 gm TP QID PRN #1 cream..g. 05/08/19 Unknown Rx Neck-Shoulder Cream] Metoclopramide [Reglan] 10 mg PO QID PRN #30 tablet 05/08/19 Unknown Rx Sulfamethoxazole/Trimethoprim 1 each PO BID #14 tablet 07/20/19 Unknown Rx [Bactrim DS TAB] traMADoL [Ultram 50 MG tab] 50 mg PO Q6HR PRN #12 tablet 07/20/19 Unknown Rx ED Physical Exam - General Limitations: No Limitations General appearance: alert, in no apparent distress - Head Head exam: Present: atraumatic, normocephalic - Eye Eye exam: Present: normal appearance - ENT ENT exam: Present: mucous membranes moist - Neck Neck exam: Present: normal inspection, full ROM - Respiratory Respiratory exam: Present: normal lung sounds bilaterally. Absent: respiratory distress, wheezes, rales, rhonchi - Cardiovascular Cardiovascular Exam: Present: regular rate, normal rhythm, normal heart sounds. Absent: systolic murmur, diastolic murmur, rubs, gallop - GI/Abdominal GI/Abdominal exam: Present: soft, distended, tenderness, guarding, rebound, normal bowel sounds - Extremities Exam Extremities exam: Present: normal inspection - Neurological Exam Neurological exam: Present: alert, oriented X3 - Psychiatric Psychiatric exam: Present: normal affect, normal mood - Skin Skin exam: Present: warm, dry, intact, normal color. Absent: rash ED Course Vital Signs 10/10/19 10/10/19 10/10/19 21:53 22:02 22:46 Temperature 98.5 F 98.5 F Pulse Rate 95 H 93 H Respiratory 18 18 Rate Blood Pressure 156/90 156/90 144/88 Blood Pressure [Left] O2 Sat by Pulse 97 98 98 Oximetry 10/10/19 10/10/19 10/10/19 22:48 23:01 23:15 Temperature 98.2 F Pulse Rate 85 85 76 Respiratory 16 18 21 Rate Blood Pressure 144/88 126/93 Blood Pressure 144/80 [Left] O2 Sat by Pulse 98 100 100 Oximetry 10/10/19 23:31 Temperature Pulse Rate 63 Respiratory 19 Rate Blood Pressure 126/93 Blood Pressure [Left] O2 Sat by Pulse 100 Oximetry HILDA score - Hilda Score Age > 65: (0) No Aspirin use within the Past 7 Days: (0) No 3 or more CAD Risk Factors: (0) No 2 or more Angina events in past 24 hrs: (1) Yes Known CAD with more than 50% Stenosis: (0) No Elevated Cardiac Markers: (0) No ST Deviation Greater than 0.5mm: (0) No HILDA Score: 1 ED Medical Decision Making - Lab Data Result diagrams: 10/10/19 22:53 10/10/19 22:53 Laboratory Results - last 24 hr 10/10/19 10/10/19 10/10/19 22:53 22:53 22:53 WBC 4.7 RBC 4.39 Hgb 13.3 Hct 39.7 MCV 90 MCH 30 MCHC 33 RDW 13.9 Plt Count 290 Lymph % (Auto) 42.2 H [place] % (Auto) 9.9 H Eos % (Auto) 1.1 Baso % (Auto) 0.8 Lymph # 2.0 [place] # 0.5 Eos # 0.1 Baso # 0.0 Seg Neutrophils % 46.0 Seg Neutrophils # 2.2 Sodium 140 Potassium 4.0 Chloride 102.1 Carbon Dioxide 26 Anion Gap 16 BUN 9 Creatinine 0.7 Estimated GFR > 60 BUN/Creatinine Ratio 13 Glucose 104 H Calcium 9.2 Total Bilirubin 0.30 AST 14 ALT 10 Alkaline Phosphatase 60 Troponin T < 0.010 Total Protein 7.4 Albumin 4.0 Albumin/Globulin Ratio 1.2 HCG, Qual Negative - EKG Data EKG shows normal: sinus rhythm, axis, intervals, QRS complexes, ST-T waves Rate: normal - Radiology Data Radiology results: report reviewed Chest x-ray PA lateral: No infiltrate. No pneumothorax normal mediastinum normal cardiac silhouette - Medical Decision Making Mrs. Salazar presents with atypical chest pain. CBC chemistry troponin within normal limits. Chest x-ray EKG unremarkable. Has had normal inpatient cardiac evaluation on previous occasion. PERC negative for PE Discharged home with referral to outpatient physician. Differential diagnosis includes GERD chest wall pain and pleurisy costochondritis Critical care attestation.: If time is entered above; I have spent that time in minutes in the direct care of this critically ill patient, excluding procedure time. ED Disposition Clinical Impression: Chest pain, GERD (gastroesophageal reflux disease) Disposition: DC-01 TO HOME OR SELFCARE Is pt being admited?: No Does the pt Need Aspirin: No Condition: Stable Instructions: Chest Pain (ED) Referrals: FREEDOM RODAS MD [Staff Physician] - 3-5 Days Forms: Work/School Release Form(ED)
[2019-10-11] MEDS ORDERED: IBUPROFEN 600 MG TAB PO ONE ×2 (01:35→01:38)
[2019-10-11 01:44] VITALS: BP 121/79
== END 2019-10-11 01:57 | disposition home or self-care (01) ==
LOC: ED 21:49
DX: K21.9 Gastro-esophageal reflux disease without esophagitis (principal); R07.89 Other chest pain; I10 Essential (primary) hypertension; M19.90 Unspecified osteoarthritis, unspecified site; F17.200 Nicotine dependence, unspecified, uncomplicated; Z79.899 Other long term (current) drug therapy; Z88.6 Allergy status to analgesic agent
CPT/HCPCS: 36415; 71046; 80053; 84484; 84703; 85025; 93005; 93010

== ENCOUNTER 2019-10-22 01:57 | Emergency (ER) | payer SELFPAY ==
--- NOTE | 2019-10-22 06:03 | Event Note ---
ED Screening Note Date of service: 10/22/19 Time: 06:02 ED Screening Note: Patient complains of substernal chest pain and shortness of breath 3 weeks. Patient was seen here 10/10/19 for the same perc score = 1 due to heart rate being greater than 100, patient denies other PE risk factors This initial assessment/diagnostic orders/clinical plan/treatment(s) is/are subject to change based on patients health status, clinical progression and re- assessment by fellow clinical providers in the ED. Further treatment and workup at subsequent clinical providers discretion. Patient/guardian urged not to elope from the ED as their condition may be serious if not clinically assessed and managed. Initial orders include: labs
[2019-10-22 06:10] LABS: Hematocrit 39.6 % (30.3-42.9); Hemoglobin 13.2 gm/dl (10.1-14.3); Mean Corpuscular HGB Conc 33 % (30-34); Mean Corpuscular Volume 90 fl (79-97)
[2019-10-22 06:25] LABS: Platelet Count 189 K/mm3 (140-440)
[2019-10-22 06:29] LABS: Alanine Aminotransferase 11 units/L (7-56); Albumin 4.1 g/dL (3.9-5); BUN/Creatinine Ratio 13; Blood Urea Nitrogen 8 mg/dL (7-17); Calcium 9.3 mg/dL (8.4-10.2); Hemolysis Index 57
[2019-10-22 07:06] LABS: Basophils % (Manual) 0 % (0.0-1.8); Platelet Estimate Consistent w Auto; Total Cells Counted 100
[2019-10-22] MEDS ORDERED: ALUM-MAG HYDROXIDE-SIMETHICONE 200-200-20MG/5ML ORAL LIQD 30 ML PO ONE (07:26)
[2019-10-22] MEDS ORDERED: ONDANSETRON 4 MG ODT TAB PO ONE (07:26)
[2019-10-22] MEDS ORDERED: LIDOCAINE VISCOUS 2% 15 ML ORAL LIQD PO ONE (07:26)
--- NOTE | 2019-10-22 07:36 | Emergency Department Report ---
ED General Adult HPI - General Chief complaint: Dyspnea/Respdistress Stated complaint: SHIRA/DIFFICULTY SLEEPING Time Seen by Provider: 10/22/19 05:22 Source: patient Mode of arrival: Ambulatory Limitations: No Limitations - History of Present Illness Initial comments: This is a 39-year-old -[place] female complaining of difficulty breathing and difficulty sleeping 3 weeks. Patient has a history of acid reflux. When she lays down at night the symptoms worsens and she feels like she cannot breath or sleep. She states that she is taking [id number] anti- acids with no relief. She had similar symptoms on September and was seen in this emergency room for chest pain. Patient has not followed up with the primary care doctor or GI specialist. She admits to smoking cigarettes and eating spicy foods. Patient denies chest pain she denies fever chills or any cough,cold symptoms no vomiting. -: week(s) (3 weeks) - Related Data Previous Rx's Medication Instructions Recorded Last Taken Type Azithromycin [Zithromax Z-ROXANN] 250 mg PO DAILY #6 tablet 08/23/18 Unknown Rx Benzonatate [Tessalon Perle] 100 mg PO Q8H PRN #20 capsule 08/23/18 Unknown Rx Prednisone [predniSONE 10 mg 10 mg PO .TAPER #1 tab.ds.pk 08/23/18 Unknown Rx (6-Day Pack, 21 Tabs)] hydrOXYzine HCL [Atarax] 25 mg PO Q6HR PRN #20 tablet 10/12/18 Unknown Rx traMADoL [Ultram 50 MG tab] 50 mg PO Q6HR PRN #20 tablet 10/12/18 Unknown Rx Dicyclomine [Bentyl] 10 mg PO QID PRN #20 capsule 05/08/19 Unknown Rx Famotidine [Pepcid] 20 mg PO BID #60 tablet 05/08/19 Unknown Rx Menthol/Camphor [[place] 50 gm TP QID PRN #1 cream..g. 05/08/19 Unknown Rx Neck-Shoulder Cream] Metoclopramide [Reglan] 10 mg PO QID PRN #30 tablet 05/08/19 Unknown Rx Sulfamethoxazole/Trimethoprim 1 each PO BID #14 tablet 07/20/19 Unknown Rx [Bactrim DS TAB] traMADoL [Ultram 50 MG tab] 50 mg PO Q6HR PRN #12 tablet 07/20/19 Unknown Rx Famotidine [Pepcid] 40 mg PO QHS #30 tablet 10/22/19 Unknown Rx Ondansetron [Zofran Odt] 4 mg PO Q8HR #20 tab.rapdis 10/22/19 Unknown Rx traMADoL [Ultram 50 MG tab] 50 mg PO Q6HR PRN #12 tablet 10/22/19 Unknown Rx Allergies Allergy/AdvReac Type Severity Reaction Status Date / Time acetaminophen [From Tylenol] Allergy Itching Verified 04/02/17 23:29 ketorolac tromethamine Allergy Rash Verified 06/07/18 14:22 [From Toradol] ED Review of Systems ROS: Stated complaint: SHIRA/DIFFICULTY SLEEPING Other details as noted in HPI Comment: All other systems reviewed and negative Constitutional: denies: chills, fever Respiratory: denies: SOB at rest Cardiovascular: denies: chest pain Genitourinary: denies: dysuria ED Past Medical Hx - Past Medical History Previous Medical History?: Yes Hx Hypertension: Yes (Noncompliant with Rx) Hx Congestive Heart Failure: No Hx Diabetes: No Hx GERD: Yes Hx Sickle Cell Disease: No Hx Arthritis: Yes Hx Asthma: No Hx COPD: No Hx HIV: No - Surgical History Past Surgical History?: No - Social History Smoking Status: Never Smoker Substance Use Type: None - Medications Home Medications: Home Medications Medication Instructions Recorded Confirmed Last Taken Type Azithromycin [Zithromax Z-ROXANN] 250 mg PO DAILY #6 tablet 08/23/18 Unknown Rx Benzonatate [Tessalon Perle] 100 mg PO Q8H PRN #20 capsule 08/23/18 Unknown Rx Prednisone [predniSONE 10 mg 10 mg PO .TAPER #1 tab.ds.pk 08/23/18 Unknown Rx (6-Day Pack, 21 Tabs)] hydrOXYzine HCL [Atarax] 25 mg PO Q6HR PRN #20 tablet 10/12/18 Unknown Rx traMADoL [Ultram 50 MG tab] 50 mg PO Q6HR PRN #20 tablet 10/12/18 Unknown Rx Dicyclomine [Bentyl] 10 mg PO QID PRN #20 capsule 05/08/19 Unknown Rx Famotidine [Pepcid] 20 mg PO BID #60 tablet 05/08/19 Unknown Rx Menthol/Camphor [[place] 50 gm TP QID PRN #1 cream..g. 05/08/19 Unknown Rx Neck-Shoulder Cream] Metoclopramide [Reglan] 10 mg PO QID PRN #30 tablet 05/08/19 Unknown Rx Sulfamethoxazole/Trimethoprim 1 each PO BID #14 tablet 07/20/19 Unknown Rx [Bactrim DS TAB] traMADoL [Ultram 50 MG tab] 50 mg PO Q6HR PRN #12 tablet 07/20/19 Unknown Rx Famotidine [Pepcid] 40 mg PO QHS #30 tablet 10/22/19 Unknown Rx Ondansetron [Zofran Odt] 4 mg PO Q8HR #20 tab.rapdis 10/22/19 Unknown Rx traMADoL [Ultram 50 MG tab] 50 mg PO Q6HR PRN #12 tablet 10/22/19 Unknown Rx ED Physical Exam - General Limitations: No Limitations General appearance: alert, in no apparent distress - Head Head exam: Present: atraumatic - Eye Eye exam: Present: normal appearance - ENT ENT exam: Present: normal exam, mucous membranes moist, TM's normal bilaterally - Neck Neck exam: Present: normal inspection - Respiratory Respiratory exam: Present: normal lung sounds bilaterally - Cardiovascular Cardiovascular Exam: Present: regular rate - GI/Abdominal GI/Abdominal exam: Present: soft, normal bowel sounds. Absent: distended, tenderness, guarding, rebound, rigid - External exam: Present: normal external exam Speculum exam: Absent: normal speculum exam Bi-manual exam: Absent: normal bi-manual exam - Extremities Exam Extremities exam: Present: normal inspection - Back Exam Back exam: Present: normal inspection - Neurological Exam Neurological exam: Present: alert, oriented X3 - Psychiatric Psychiatric exam: Present: normal affect - Skin Skin exam: Present: warm, dry, intact, normal color ED Course Vital Signs 10/22/19 10/22/19 02:02 08:17 Temperature 98.6 F 98.6 F Pulse Rate 111 H 88 Respiratory 20 18 Rate Blood Pressure 167/82 Blood Pressure 162/80 [Left] O2 Sat by Pulse 99 99 Oximetry ED Medical Decision Making - Lab Data Result diagrams: 10/22/19 05:41 10/22/19 05:41 - Medical Decision Making 39-year-old female with a history of acid reflux came to the emergency room complaining of chest pain no acute findings. Patient did does also admit to smoking and eating spicy food. Instructed patient to stop smoking stopped eating spicy foods that triggers her GERD. Patient given GI cocktail in the emergency room which did provide relief. She is given prescription for Zofran a nd Pepcid 40 mg by mouth every at bedtime and Ultram for pain. Instruct follow up with PCP and GI specialist. Critical Care Time: No Critical care attestation.: If time is entered above; I have spent that time in minutes in the direct care of this critically ill patient, excluding procedure time. ED Disposition Clinical Impression: GERD (gastroesophageal reflux disease) Qualifiers: Esophagitis presence: esophagitis presence not specified Qualified Code(s): K21.9 - Gastro-esophageal reflux disease without esophagitis Disposition: TO HOME OR SELFCARE Is pt being admited?: No Does the pt Need Aspirin: No Condition: Stable Instructions: Gastroesophageal Reflux Disease (ED) Additional Instructions: STOP SMOKING AND EATING FOODS THAT WORSENS YOUR ACID REFLUX. Follow follow up with [facility]-phone number [phone]. Take medications as prescribed. Return to the emergency room for any worsening abdominal pain and fever chest pain or shortness of breath. Prescriptions: Famotidine [Pepcid] 40 mg PO QHS #30 tablet traMADoL [Ultram 50 MG tab] 50 mg PO Q6HR PRN #12 tablet PRN Reason: Pain Ondansetron [Zofran Odt] 4 mg PO Q8HR #20 tab.rapdis Referrals: FREEDOM RODAS MD [Staff Physician] - 3-5 Days PRIMARY CARE, [Primary Care Provider] - 3-5 Days Time of Disposition: 08:12
[2019-10-22 08:18] VITALS: BP 162/80
== END 2019-10-22 08:17 | disposition home or self-care (01) ==
LOC: ED 01:57
DX: K21.9 Gastro-esophageal reflux disease without esophagitis (principal); I10 Essential (primary) hypertension; M19.90 Unspecified osteoarthritis, unspecified site
CPT/HCPCS: 36415; 80053; 83880; 84484; 85007; 85025; 85379; 99283; Q0162

== ENCOUNTER 2019-10-31 22:11 | Emergency (ER) | payer SELFPAY ==
[2019-11-01 02:02] LABS: Basophils % (Auto) 0.4 % (0.0-1.8); Eosinophils % (Auto) 0.7 % (0.0-4.3); Hematocrit 39.1 % (30.3-42.9); Hemoglobin 12.9 gm/dl (10.1-14.3); Lymphocytes % (Auto) 33.1 % (13.4-35.0); Mean Corpuscular HGB Conc 33 % (30-34); Mean Corpuscular Volume 91 fl (79-97); Monocytes # (Auto) 0.5 K/mm3 (0.0-0.8); Monocytes % (Auto) 8.5 % (0.0-7.3); Platelet Count 335 K/mm3 (140-440); Red Blood Count 4.31 M/mm3 (3.65-5.03); Red Cell Distribution Width 14.3 % (13.2-15.2)
[2019-11-01 02:25] LABS: BUN/Creatinine Ratio 14; Blood Urea Nitrogen 10 mg/dL (7-17); Calcium 9.3 mg/dL (8.4-10.2); Hemolysis Index 2
--- NOTE | 2019-11-01 03:08 | XRay Report ---
CHEST 1 VIEW 11/01/2019 2:36 AM INDICATION / CLINICAL INFORMATION: Chest Pain. COMPARISON: 2 views of the chest from 10/11/2019. FINDINGS: SUPPORT DEVICES: None. HEART / MEDIASTINUM: No significant abnormality. LUNGS / PLEURA: No significant pulmonary or pleural abnormality. No pneumothorax. ADDITIONAL FINDINGS: No significant additional findings. IMPRESSION: 1. No acute abnormality of the chest. Signer Name: Nii Turner MD Signed: 11/01/2019 3:03 AM Workstation Name: [employer]
[2019-11-01 07:05] LABS: Bacteria,Urine 1+ /HPF (Negative); Bilirubin,Urine NEG (Negative); Blood,Urine NEG (Negative); Color,Urine Yellow (Yellow); Mucus,Urine 3+ /HPF; Protein,Urine <15 mg/dL mg/dL (Negative)
[2019-11-01] MEDS ORDERED: PANTOPRAZOLE 40 MG TAB PO ONE (07:31)
--- NOTE | 2019-11-01 07:36 | Emergency Department Report ---
ED General Adult HPI - General Chief complaint: Syncope Stated complaint: SYNCOPAL EPI Time Seen by Provider: 11/01/19 06:56 Source: patient, EMS Mode of arrival: Ambulatory Limitations: No Limitations - History of Present Illness Initial comments: Patient presents to the emergency department with a chief complaint of a near syncopal episode. Patient states that she tonight he yesterday morning and went to the gym to workout and upon returning home 8 to breathe. Patient states about 30 minutes later she began to feel lightheaded, sweaty, and began to see black and white spots animals passed out. Patient denies chest pain prior to or after the episode. Patient also denies shortness of breath or abdominal pain. Patient does complain of chronic reflux issues which she states no symptoms the longer working for her. She also states she has an appointment with her primary care physician at [facility] this week. -: Sudden Severity scale (0 -10): 1 Quality: burning Consistency: constant Improves with: none Worsens with: none Associated Symptoms: denies other symptoms Treatments Prior to Arrival: none - Related Data Previous Rx's Medication Instructions Recorded Last Taken Type Azithromycin [Zithromax Z-ROXANN] 250 mg PO DAILY #6 tablet 08/23/18 Unknown Rx Benzonatate [Tessalon Perle] 100 mg PO Q8H PRN #20 capsule 08/23/18 Unknown Rx Prednisone [predniSONE 10 mg 10 mg PO .TAPER #1 tab.ds.pk 08/23/18 Unknown Rx (6-Day Pack, 21 Tabs)] hydrOXYzine HCL [Atarax] 25 mg PO Q6HR PRN #20 tablet 10/12/18 Unknown Rx traMADoL [Ultram 50 MG tab] 50 mg PO Q6HR PRN #20 tablet 10/12/18 Unknown Rx Dicyclomine [Bentyl] 10 mg PO QID PRN #20 capsule 05/08/19 Unknown Rx Famotidine [Pepcid] 20 mg PO BID #60 tablet 05/08/19 Unknown Rx Menthol/Camphor [[place] 50 gm TP QID PRN #1 cream..g. 05/08/19 Unknown Rx Neck-Shoulder Cream] Metoclopramide [Reglan] 10 mg PO QID PRN #30 tablet 05/08/19 Unknown Rx Sulfamethoxazole/Trimethoprim 1 each PO BID #14 tablet 07/20/19 Unknown Rx [Bactrim DS TAB] traMADoL [Ultram 50 MG tab] 50 mg PO Q6HR PRN #12 tablet 07/20/19 Unknown Rx Famotidine [Pepcid] 40 mg PO QHS #30 tablet 10/22/19 Unknown Rx Ondansetron [Zofran Odt] 4 mg PO Q8HR #20 tab.rapdis 10/22/19 Unknown Rx traMADoL [Ultram 50 MG tab] 50 mg PO Q6HR PRN #12 tablet 10/22/19 Unknown Rx Pantoprazole [Protonix TAB] 20 mg PO QDAY #30 tablet. 11/01/19 Unknown Rx Allergies Allergy/AdvReac Type Severity Reaction Status Date / Time acetaminophen [From Tylenol] Allergy Itching Verified 04/02/17 23:29 ketorolac tromethamine Allergy Rash Verified 06/07/18 14:22 [From Toradol] ED Review of Systems ROS: Stated complaint: SYNCOPAL EPI Other details as noted in HPI Comment: All other systems reviewed and negative Constitutional: denies: chills, fever Eyes: denies: eye pain, eye discharge, vision change ENT: denies: ear pain, throat pain Respiratory: denies: cough, shortness of breath, wheezing Cardiovascular: denies: chest pain, palpitations Endocrine: no symptoms reported Gastrointestinal: other (reflux). denies: abdominal pain, nausea, diarrhea Genitourinary: denies: urgency, dysuria, discharge Musculoskeletal: denies: back pain, joint swelling, arthralgia Skin: denies: rash, lesions Neurological: denies: headache, weakness, paresthesias Psychiatric: denies: anxiety, depression Hematological/Lymphatic: denies: easy bleeding, easy bruising ED Past Medical Hx - Past Medical History Previous Medical History?: Yes Hx Hypertension: Yes (Noncompliant with Rx) Hx Congestive Heart Failure: No Hx Diabetes: No Hx GERD: Yes Hx Sickle Cell Disease: No Hx Arthritis: Yes Hx Asthma: No Hx COPD: No Hx HIV: No - Surgical History Past Surgical History?: No - Social History Smoking Status: Never Smoker Substance Use Type: None - Medications Home Medications: Home Medications Medication Instructions Recorded Confirmed Last Taken Type Azithromycin [Zithromax Z-ROXANN] 250 mg PO DAILY #6 tablet 08/23/18 Unknown Rx Benzonatate [Tessalon Perle] 100 mg PO Q8H PRN #20 capsule 08/23/18 Unknown Rx Prednisone [predniSONE 10 mg 10 mg PO .TAPER #1 tab.ds.pk 08/23/18 Unknown Rx (6-Day Pack, 21 Tabs)] hydrOXYzine HCL [Atarax] 25 mg PO Q6HR PRN #20 tablet 10/12/18 Unknown Rx traMADoL [Ultram 50 MG tab] 50 mg PO Q6HR PRN #20 tablet 10/12/18 Unknown Rx Dicyclomine [Bentyl] 10 mg PO QID PRN #20 capsule 05/08/19 Unknown Rx Famotidine [Pepcid] 20 mg PO BID #60 tablet 05/08/19 Unknown Rx Menthol/Camphor [[place] 50 gm TP QID PRN #1 cream..g. 05/08/19 Unknown Rx Neck-Shoulder Cream] Metoclopramide [Reglan] 10 mg PO QID PRN #30 tablet 05/08/19 Unknown Rx Sulfamethoxazole/Trimethoprim 1 each PO BID #14 tablet 07/20/19 Unknown Rx [Bactrim DS TAB] traMADoL [Ultram 50 MG tab] 50 mg PO Q6HR PRN #12 tablet 07/20/19 Unknown Rx Famotidine [Pepcid] 40 mg PO QHS #30 tablet 10/22/19 Unknown Rx Ondansetron [Zofran Odt] 4 mg PO Q8HR #20 tab.rapdis 10/22/19 Unknown Rx traMADoL [Ultram 50 MG tab] 50 mg PO Q6HR PRN #12 tablet 10/22/19 Unknown Rx Pantoprazole [Protonix TAB] 20 mg PO QDAY #30 tablet.dr 11/01/19 Unknown Rx ED Physical Exam - General Limitations: No Limitations General appearance: alert, in no apparent distress - Head Head exam: Present: atraumatic, normocephalic - Eye Eye exam: Present: normal appearance, PERRL, EOMI - ENT ENT exam: Present: mucous membranes moist - Neck Neck exam: Present: normal inspection - Respiratory Respiratory exam: Present: normal lung sounds bilaterally. Absent: respiratory distress - Cardiovascular Cardiovascular Exam: Present: regular rate, normal rhythm. Absent: systolic murmur, diastolic murmur, rubs, gallop - GI/Abdominal GI/Abdominal exam: Present: soft, normal bowel sounds. Absent: distended, t enderness - Extremities Exam Extremities exam: Present: normal inspection - Back Exam Back exam: Present: normal inspection - Neurological Exam Neurological exam: Present: alert, oriented X3, CN II-XII intact, other (normal cerebellar exam). Absent: motor sensory deficit - Psychiatric Psychiatric exam: Present: normal affect, normal mood - Skin Skin exam: Present: warm, dry, intact, normal color. Absent: rash ED Course Vital Signs 10/31/19 11/01/19 22:35 04:18 Temperature 98.6 F 97.5 F L Pulse Rate 89 65 Respiratory 18 18 Rate Blood Pressure 155/91 133/74 O2 Sat by Pulse 98 100 Oximetry ED Medical Decision Making - Lab Data Result diagrams: 11/01/19 01:36 11/01/19 01:36 Lab Results 11/01/19 11/01/19 11/01/19 Range/Units 01:36 01:36 01:36 WBC 5.9 (4.5-11.0) K/mm3 RBC 4.31 (3.65-5.03) M/mm3 Hgb 12.9 (10.1-14.3) gm/dl Hct 39.1 (30.3-42.9) % MCV 91 (79-97) fl MCH 30 (28-32) pg MCHC 33 (30-34) % RDW 14.3 (13.2-15.2) % Plt Count 335 (140-440) K/mm3 Lymph % (Auto) 33.1 (13.4-35.0) % [place] % (Auto) 8.5 H (0.0-7.3) % Eos % (Auto) 0.7 (0.0-4.3) % Baso % (Auto) 0.4 (0.0-1.8) % Lymph # 2.0 (1.2-5.4) K/mm3 [place] # 0.5 (0.0-0.8) K/mm3 Eos # 0.0 (0.0-0.4) K/mm3 Baso # 0.0 (0.0-0.1) K/mm3 Seg Neutrophils % 57.3 (40.0-70.0) % Seg Neutrophils # 3.4 (1.8-7.7) K/mm3 Sodium 141 (137-145) mmol/L Potassium 3.7 (3.6-5.0) mmol/L Chloride 103.0 (98-107) mmol/L Carbon Dioxide 23 (22-30) mmol/L Anion Gap 19 mmol/L BUN 10 (7-17) mg/dL Creatinine 0.7 (0.7-1.2) mg/dL Estimated GFR > 60 ml/min BUN/Creatinine Ratio 14 % Glucose 103 H (65-100) mg/dL Calcium 9.3 (8.4-10.2) mg/dL Troponin T < 0.010 (0.00-0.029) ng/mL HCG, Qual Negative (Negative) Urine Color (Yellow) Urine Turbidity (Clear) Urine pH (5.0-7.0) Ur Specific [place] (1.003-1.030) Urine Protein (Negative) mg/dL Urine Glucose (UA) (Negative) mg/dL Urine Ketones (Negative) mg/dL Urine Blood (Negative) Urine Nitrite (Negative) Urine Bilirubin (Negative) Urine Urobilinogen (<2.0) mg/dL Ur Leukocyte Esterase (Negative) Urine WBC (Auto) (0.0-6.0) /HPF Urine RBC (Auto) (0.0-6.0) /HPF U Epithel Cells (Auto) (0-13.0) /HPF Urine Bacteria (Auto) (Negative) /HPF Urine Mucus /HPF 11/01/19 11/01/19 Range/Units 04:51 06:51 WBC (4.5-11.0) K/mm3 RBC (3.65-5.03) M/mm3 Hgb (10.1-14.3) gm/dl Hct (30.3-42.9) % MCV (79-97) fl MCH (28-32) pg MCHC (30-34) % RDW (13.2-15.2) % Plt Count (140-440) K/mm3 Lymph % (Auto) (13.4-35.0) % [place] % (Auto) (0.0-7.3) % Eos % (Auto) (0.0-4.3) % Baso % (Auto) (0.0-1.8) % Lymph # (1.2-5.4) K/mm3 [place] # (0.0-0.8) K/mm3 Eos # (0.0-0.4) K/mm3 Baso # (0.0-0.1) K/mm3 Seg Neutrophils % (40.0-70.0) % Seg Neutrophils # (1.8-7.7) K/mm3 Sodium (137-145) mmol/L Potassium (3.6-5.0) mmol/L Chloride (98-107) mmol/L Carbon Dioxide (22-30) mmol/L Anion Gap mmol/L BUN (7-17) mg/dL Creatinine (0.7-1.2) mg/dL Estimated GFR ml/min BUN/Creatinine Ratio % Glucose (65-100) mg/dL Calcium (8.4-10.2) mg/dL Troponin T < 0.010 (0.00-0.029) ng/mL HCG, Qual (Negative) Urine Color Yellow (Yellow) Urine Turbidity Slightly-cloudy (Clear) Urine pH 5.0 (5.0-7.0) Ur Specific [place] 1.028 (1.003-1.030) Urine Protein <15 mg/dl (Negative) mg/dL Urine Glucose (UA) Neg (Negative) mg/dL Urine Ketones Tr (Negative) mg/dL Urine Blood Neg (Negative) Urine Nitrite Neg (Negative) Urine Bilirubin Neg (Negative) Urine Urobilinogen 2.0 (<2.0) mg/dL Ur Leukocyte Esterase Neg (Negative) Urine WBC (Auto) 3.0 (0.0-6.0) /HPF Urine RBC (Auto) 3.0 (0.0-6.0) /HPF U Epithel Cells (Auto) 4.0 (0-13.0) /HPF Urine Bacteria (Auto) 1+ (Negative) /HPF Urine Mucus 3+ /HPF - EKG Data -: EKG Interpreted by Ak EKG shows normal: sinus rhythm Rate: normal - Radiology Data Radiology results: report reviewed - Medical Decision Making Patient offer CT of the head is slightly declined Discussed the pathophysiology of the patient's near syncopal episode Patient given dose of Protonix in the ED Patient will be discharged with Protonix prescription Patient states that her reflux was improved with a vegan diet but she stopped Critical care attestation.: If time is entered above; I have spent that time in minutes in the direct care of this critically ill patient, excluding procedure time. ED Disposition Clinical Impression: Near syncope, GERD (gastroesophageal reflux disease) Disposition: DC- TO HOME OR SELFCARE Is pt being admited?: No Does the pt Need Aspirin: No Condition: Stable Instructions: Near Syncope (ED), Gastroesophageal Reflux Disease (ED) Additional Instructions: Please stop taking her Nexium while taking the Protonix Prescriptions: Pantoprazole [Protonix TAB] 20 mg PO QDAY #30 tablet. Referrals: PRIMARY CARE, [Primary Care Provider] - 3-5 Days [facility] [Provider Group] - 3-5 Days [facility] [Provider Group] - 3-5 Days [facility] [Outside] - 3-5 Days Time of Disposition: 07:38
[2019-11-01 08:09] VITALS: BP 109/63
== END 2019-11-01 08:08 | disposition home or self-care (01) ==
LOC: ED 22:11
DX: K21.9 Gastro-esophageal reflux disease without esophagitis (principal); R55 Syncope and collapse; Z79.1 Long term (current) use of non-steroidal anti-inflammatories (NSAID); Z79.2 Long term (current) use of antibiotics; Z79.899 Other long term (current) drug therapy; Z88.8 Allergy status to other drugs, medicaments and biological substances
CPT/HCPCS: 36415; 71045; 80048; 81001; 84484; 84703; 85025; 93005; 93010

== ENCOUNTER 2019-11-03 12:15 | Emergency (ER) | payer SELFPAY ==
[2019-11-03 12:27] VITALS: BP 129/79
--- NOTE | 2019-11-03 13:06 | Emergency Department Report ---
Blank Doc - Documentation Documentation: 39-year-old female that presents with left eye pain and blurry vision. This initial assessment/diagnostic orders/clinical plan/treatment(s) is/are subject to change based on patient's health status, clinical progression and re- assessment by fellow clinical providers in the ED. Further treatment and workup at subsequent clinical providers discretion. Patient/guardians urged not to elope from the ED as their condition may be serious if not clinically assessed and managed. Initial orders include: 1- Patient sent to [facility] for further evaluation and treatment 2- españa lamp 3- visual test
--- NOTE | 2019-11-03 14:09 | Emergency Department Report ---
Chief Complaint: Eye Problems Stated Complaint: LFT EYE SCOTT/BLURRED VISION Time Seen by Provider: 11/03/19 13:05 - HPI History of Present Illness: This is a 39-year-old female with history of acid reflux and chronic pain controlled with medication presents here today complaining of left eye burning sensation x3 days. Patient denies contact use or glasses. Patient denies any trauma or injuries to the eye. Patient denies any foreign object to the eye. Patient states that burning sensation is localized left eye, she denies loss of vision, pain, redness or swelling. - ROS Review of Systems: As noted in HPI - Exam Vital Signs: Vital Signs 11/03/19 11/03/19 12:25 13:04 Temperature 98.4 F 98 F Pulse Rate 66 Respiratory 18 18 Rate Blood Pressure 129/79 129/79 O2 Sat by Pulse 100 Oximetry MSE screening note: Focused history and physical exam performed. Due to findings the following was ordered: ED Disposition for MSE Clinical Impression: Conjunctivitis Disposition: Z-07 MED SCREENING EXAM-LEFT Is pt being admited?: No Does the pt Need Aspirin: No Condition: Stable Instructions: Conjunctivitis (ED) Additional Instructions: Make sure to follow up with the primary care physician as discussed. Make sure you use eyedrops as discussed for allergies. These are [id number] and can be picked up at any pharmacy. If you have any worsening symptoms or develop new symptoms please return to ED immediately. Referrals: PRIMARY CARE, [Primary Care Provider] - 3-5 Days ANNA MANZO MD [Staff Physician] - 3-5 Days Forms: Work/School Release Form(ED) Time of Disposition: 14:09
== END 2019-11-03 14:34 | disposition left against medical advice (07) ==
LOC: ED 12:15
DX: H57.12 Ocular pain, left eye (principal); Z53.21 Procedure and treatment not carried out due to patient leaving prior to being seen by health care provider

== ENCOUNTER 2019-11-04 08:02 | Emergency (ER) | payer SELFPAY ==
[2019-11-04 08:21] VITALS: BP 148/85
--- NOTE | 2019-11-04 08:59 | Emergency Department Report ---
ED Back Pain/Injury HPI - General Chief Complaint: Back Pain/Injury Stated Complaint: BACK PAIN Time Seen by Provider: 11/04/19 08:51 Source: patient Limitations: No Limitations - History of Present Illness Initial Comments: 39-year-old F [place] female presents emergency department complaining of a 3+ week history of episodic back pain which she thinks may be secondary to her acid reflux or her arthritis. She reports that it has been lingering more than usual but of other characteristics of the pain at this time. She reports no hemoptysis, hematemesis no fever, chills, sweats no chest pain or palpitations no nausea or vomiting. She reports no dysuria or hematuria. She denies any trauma. Similar Symptoms Previously: Yes Place: home Severity: mild Quality: dull, aching Consistency: constant Worsens With: movement Associated Symptoms: denies: cough, constipation, headaches, abdominal pain, shortness of breath, syncope - Related Data Previous Rx's Medication Instructions Recorded Last Taken Type Azithromycin [Zithromax Z-ROXANN] 250 mg PO DAILY #6 tablet 08/23/18 Unknown Rx Benzonatate [Tessalon Perle] 100 mg PO Q8H PRN #20 capsule 08/23/18 Unknown Rx Prednisone [predniSONE 10 mg 10 mg PO .TAPER #1 tab.ds.pk 08/23/18 Unknown Rx (6-Day Pack, 21 Tabs)] hydrOXYzine HCL [Atarax] 25 mg PO Q6HR PRN #20 tablet 10/12/18 Unknown Rx traMADoL [Ultram 50 MG tab] 50 mg PO Q6HR PRN #20 tablet 10/12/18 Unknown Rx Dicyclomine [Bentyl] 10 mg PO QID PRN #20 capsule 05/08/19 Unknown Rx Famotidine [Pepcid] 20 mg PO BID #60 tablet 05/08/19 Unknown Rx Menthol/Camphor [[place] 50 gm TP QID PRN #1 cream..g. 05/08/19 Unknown Rx Neck-Shoulder Cream] Metoclopramide [Reglan] 10 mg PO QID PRN #30 tablet 05/08/19 Unknown Rx Sulfamethoxazole/Trimethoprim 1 each PO BID #14 tablet 07/20/19 Unknown Rx [Bactrim DS TAB] traMADoL [Ultram 50 MG tab] 50 mg PO Q6HR PRN #12 tablet 07/20/19 Unknown Rx Famotidine [Pepcid] 40 mg PO QHS #30 tablet 10/22/19 Unknown Rx Ondansetron [Zofran Odt] 4 mg PO Q8HR #20 tab.rapdis 10/22/19 Unknown Rx traMADoL [Ultram 50 MG tab] 50 mg PO Q6HR PRN #12 tablet 10/22/19 Unknown Rx Pantoprazole [Protonix TAB] 20 mg PO QDAY #30 tablet. 11/01/19 Unknown Rx Allergies Allergy/AdvReac Type Severity Reaction Status Date / Time acetaminophen [From Tylenol] Allergy Itching Verified 04/02/17 23:29 ketorolac tromethamine Allergy Rash Verified 06/07/18 14:22 [From Toradol] ED Review of Systems ROS: Stated complaint: BACK PAIN Other details as noted in HPI Comment: All other systems reviewed and negative ED Past Medical Hx Family history: hypertension ED Back Pain Physical Exam - Exam General: Vital signs noted. No distress. Alert and acting appropriately. Lungs clear to auscultation. Neck is supple no lymphadenopathy Spurling's test is negative. No spasms noted. Neuro cranial nerves II through XII are intact. Her DTRs are intact. 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 Sensation is is is is equal bilaterally. Back/Abdomen: No Abdominal Tenderness, No Perithoracic Tenderness (Some paraspinous tenderness to the right paraspinous midthoracic region.), No Perilumbar Tenderness, No Sacroiliac Tenderness, No Flank Tenderness, No Straight Leg Raise Pain Neuro: Yes Normal Sensation, Yes Normal DTR's, Yes Normal Gait, No Motor Weakness ED Course Vital Signs 11/04/19 08:19 Temperature 98.1 F Pulse Rate 65 Respiratory 18 Rate Blood Pressure 148/85 O2 Sat by Pulse 99 Oximetry ED Medical Decision Making - Medical Decision Making 39-year-old F [place] female with chronic recurrent back pain and a strong history of arthritis and acid reflux. See no back pain red flags on examination and symptoms appear to be relatively stable. Differential includes lumbar versus musculoskeletal spasm versus strain versus gastrointestinal pathology. No back pain red flags on history or physical. Presentation not consistent with malignancy, fracture, cauda equina, AAA, perforation, pulmonary embolism, zoë lonephritis. Given the clinical picture no indication for imaging at this time. Plan to have her follow-up with primary care/orthopedic and supportive care pain control with [id number] analgesics. Critical care attestation.: If time is entered above; I have spent that time in minutes in the direct care of this critically ill patient, excluding procedure time. ED Disposition Clinical Impression: Back pain Disposition: MED SCREENING EXAM-LEFT Is pt being admited?: No Does the pt Need Aspirin: No Condition: Stable Instructions: Back Pain (ED) Referrals: REBECCA MEHTA MD [Staff Physician] - 3-5 Days
== END 2019-11-04 09:09 | disposition left against medical advice (07) ==
LOC: ED 08:02
DX: M54.9 Dorsalgia, unspecified (principal); Z79.899 Other long term (current) drug therapy; Z88.8 Allergy status to other drugs, medicaments and biological substances
CPT/HCPCS: 99281

== ENCOUNTER 2019-11-04 19:25 | Emergency (ER) | payer SELFPAY ==
[2019-11-04 19:52] VITALS: BP 148/92
--- NOTE | 2019-11-04 21:16 | Emergency Department Report ---
ED Back Pain/Injury HPI - General Chief Complaint: Back Pain/Injury Stated Complaint: BACK PAIN Time Seen by Provider: 11/04/19 21:12 Source: patient Limitations: No Limitations - History of Present Illness Initial Comments: This is a 39-year-old female nontoxic, well nourished in appearance, no acute signs of distress presents to the ED with c/o of acute on chronic lower back pain x3 weeks. Patient stated has been having intermittent back pains for about 4 years.. Patient denies any trauma. Denies any bladder or bowel instability. Patient denies any urinary symptoms. Denies any fever, chills, nausea, vomiting, headache, stiff neck, chest pain or shortness of breath. Patient denies any numbness or tingling. MD Complaint: back pain -: year(s) Similar Symptoms Previously: Yes Radiation: none Severity: mild Severity scale (0 -10): 3 Quality: aching Consistency: intermittent Improves With: immobilization, sitting upright Worsens With: movement, walking Associated Symptoms: denies other symptoms. denies: confusion, weakness, chest pain, numbness, difficulty walking, cough, difficulty urinating, diaphoresis, incontinence, fever/chills, constipation, headaches, abdominal pain, loss of appetite, malaise, nausea/vomiting, rash, seizure, shortness of breath, syncope - Related Data Previous Rx's Medication Instructions Recorded Last Taken Type Azithromycin [Zithromax Z-ROXANN] 250 mg PO DAILY #6 tablet 08/23/18 Unknown Rx Benzonatate [Tessalon Perle] 100 mg PO Q8H PRN #20 capsule 08/23/18 Unknown Rx Prednisone [predniSONE 10 mg 10 mg PO .TAPER #1 tab.ds.pk 08/23/18 Unknown Rx (6-Day Pack, 21 Tabs)] hydrOXYzine HCL [Atarax] 25 mg PO Q6HR PRN #20 tablet 10/12/18 Unknown Rx traMADoL [Ultram 50 MG tab] 50 mg PO Q6HR PRN #20 tablet 10/12/18 Unknown Rx Dicyclomine [Bentyl] 10 mg PO QID PRN #20 capsule 05/08/19 Unknown Rx Famotidine [Pepcid] 20 mg PO BID #60 tablet 05/08/19 Unknown Rx Menthol/Camphor [[place] 50 gm TP QID PRN #1 cream..g. 05/08/19 Unknown Rx Neck-Shoulder Cream] Metoclopramide [Reglan] 10 mg PO QID PRN #30 tablet 05/08/19 Unknown Rx Sulfamethoxazole/Trimethoprim 1 each PO BID #14 tablet 07/20/19 Unknown Rx [Bactrim DS TAB] traMADoL [Ultram 50 MG tab] 50 mg PO Q6HR PRN #12 tablet 07/20/19 Unknown Rx Famotidine [Pepcid] 40 mg PO QHS #30 tablet 10/22/19 Unknown Rx Ondansetron [Zofran Odt] 4 mg PO Q8HR #20 tab.rapdis 10/22/19 Unknown Rx traMADoL [Ultram 50 MG tab] 50 mg PO Q6HR PRN #12 tablet 10/22/19 Unknown Rx Pantoprazole [Protonix TAB] 20 mg PO QDAY #30 tablet. 11/01/19 Unknown Rx Allergies Allergy/AdvReac Type Severity Reaction Status Date / Time acetaminophen [From Tylenol] Allergy Itching Verified 04/02/17 23:29 ketorolac tromethamine Allergy Rash Verified 06/07/18 14:22 [From Toradol] ED Review of Systems ROS: Stated complaint: BACK PAIN Other details as noted in HPI Constitutional: denies: chills, fever Eyes: denies: eye pain, eye discharge, vision change ENT: denies: ear pain, throat pain Respiratory: denies: cough, shortness of breath, wheezing Cardiovascular: denies: chest pain, palpitations Endocrine: no symptoms reported Gastrointestinal: denies: abdominal pain, nausea, diarrhea Genitourinary: denies: urgency, dysuria, discharge Musculoskeletal: back pain. denies: joint swelling, arthralgia Skin: denies: rash, lesions Neurological: denies: headache, weakness, paresthesias Psychiatric: denies: anxiety, depression Hematological/Lymphatic: denies: easy bleeding, easy bruising ED Past Medical Hx - Past Medical History Hx Hypertension: Yes (Noncompliant with Rx) Hx Congestive Heart Failure: No Hx Diabetes: No Hx GERD: Yes Hx Sickle Cell Disease: No Hx Arthritis: Yes Hx Asthma: No Hx COPD: No Hx HIV: No - Social History Smoking Status: Never Smoker Substance Use Type: None - Medications Home Medications: Home Medications Medication Instructions Recorded Confirmed Last Taken Type Azithromycin [Zithromax Z-ROXANN] 250 mg PO DAILY #6 tablet 08/23/18 Unknown Rx Benzonatate [Tessalon Perle] 100 mg PO Q8H PRN #20 capsule 08/23/18 Unknown Rx Prednisone [predniSONE 10 mg 10 mg PO .TAPER #1 tab.ds.pk 08/23/18 Unknown Rx (6-Day Pack, 21 Tabs)] hydrOXYzine HCL [Atarax] 25 mg PO Q6HR PRN #20 tablet 10/12/18 Unknown Rx traMADoL [Ultram 50 MG tab] 50 mg PO Q6HR PRN #20 tablet 10/12/18 Unknown Rx Dicyclomine [Bentyl] 10 mg PO QID PRN #20 capsule 05/08/19 Unknown Rx Famotidine [Pepcid] 20 mg PO BID #60 tablet 05/08/19 Unknown Rx Menthol/Camphor [[place] 50 gm TP QID PRN #1 cream..g. 05/08/19 Unknown Rx Neck-Shoulder Cream] Metoclopramide [Reglan] 10 mg PO QID PRN #30 tablet 05/08/19 Unknown Rx Sulfamethoxazole/Trimethoprim 1 each PO BID #14 tablet 07/20/19 Unknown Rx [Bactrim DS TAB] traMADoL [Ultram 50 MG tab] 50 mg PO Q6HR PRN #12 tablet 07/20/19 Unknown Rx Famotidine [Pepcid] 40 mg PO QHS #30 tablet 10/22/19 Unknown Rx Ondansetron [Zofran Odt] 4 mg PO Q8HR #20 tab.rapdis 10/22/19 Unknown Rx traMADoL [Ultram 50 MG tab] 50 mg PO Q6HR PRN #12 tablet 10/22/19 Unknown Rx Pantoprazole [Protonix TAB] 20 mg PO QDAY #30 tablet.dr 11/01/19 Unknown Rx ED Physical Exam - General Limitations: No Limitations General appearance: alert, in no apparent distress - Head Head exam: Present: atraumatic, normocephalic - Neck Neck exam: Present: normal inspection, full ROM. Absent: tenderness, meningismus, lymphadenopathy - Respiratory Respiratory exam: Present: normal lung sounds bilaterally. Absent: respiratory distress, wheezes, rales, rhonchi, stridor, chest wall tenderness, accessory muscle use, decreased breath sounds, prolonged expiratory - Cardiovascular Cardiovascular Exam: Present: regular rate, normal rhythm, normal heart sounds. Absent: bradycardia, tachycardia, irregular rhythm, systolic murmur, diastolic murmur, rubs, gallop - Extremities Exam Extremities exam: Present: normal inspection, full ROM, normal capillary refill. Absent: tenderness - Back Exam Back exam: Present: normal inspection, full ROM, paraspinal tenderness (lumbar paraspinal). Absent: tenderness, CVA tenderness (R), CVA tenderness (L), muscle spasm, vertebral tenderness, rash noted - Expanded Back Exam Expanded Back exam: Absent: saddle anesthesia Back exam: Negative Straight Leg Raising: Left, Right - Neurological Exam Neurological exam: Present: alert, oriented X3, normal gait - Psychiatric Psychiatric exam: Present: normal affect, normal mood - Skin Skin exam: Present: warm, dry, intact, normal color. Absent: rash ED Course Vital Signs 11/04/19 19:51 Temperature 98.3 F Pulse Rate 86 Respiratory 18 Rate Blood Pressure 148/92 O2 Sat by Pulse 100 Oximetry - Reevaluation(s) Reevaluation #1: 11/04/19 21:18 Patient is speaking in full sentences with no signs of distress noted. ED Medical Decision Making - Medical Decision Making This is a 39-year-old female that presents with chronic back pains. Patient is stable was examined by me. There is no spinal tenderness. There is no cauda equina syndrome during examination. No bladder or bowel instability. Patient was referred to Follow-up with a primary care doctor in 3-5 days or if symptoms worsen and continue return to emergency room as soon as possible. At time of discharge, the patient does not seem toxic or ill in appearance. No acute signs of distress noted. Patient agrees to discharge treatment plan of care. No further questions noted by the patient. Critical care attestation.: If time is entered above; I have spent that time in minutes in the direct care of this critically ill patient, excluding procedure time. ED Disposition Clinical Impression: Chronic back pain Qualifiers: Back pain location: low back pain Back pain laterality: unspecified Sciatica presence: unspecified whether sciatica present Qualified Code(s): M54.5 - Low back pain; G89.29 - Other chronic pain Disposition: MED SCREENING EXAM-LEFT Is pt being admited?: No Does the pt Need Aspirin: No Condition: Stable Instructions: Chronic Back Pain (ED) Additional Instructions: Follow-up with a primary care doctor in 3-5 days or if symptoms worsen and continue return to emergency room as soon as possible. Referrals: PRIMARY CARE, [Referring] - 3-5 Days FREEDOM RODAS MD [Staff Physician] - 3-5 Days [facility] [Outside] - 3-5 Days
== END 2019-11-04 21:30 | disposition left against medical advice (07) ==
LOC: ED 19:25
DX: G89.29 Other chronic pain (principal); M54.5 Low back pain; I10 Essential (primary) hypertension; K21.9 Gastro-esophageal reflux disease without esophagitis; M19.90 Unspecified osteoarthritis, unspecified site
CPT/HCPCS: 99281

== ENCOUNTER 2019-11-09 20:45 | Emergency (ER) | payer SELFPAY ==
[2019-11-09 22:07] VITALS: BP 121/72
--- NOTE | 2019-11-09 23:17 | XRay Report ---
LEFT KNEE 3 VIEWS INDICATION / CLINICAL INFORMATION: left knee pain COMPARISON: None available. FINDINGS: BONES / JOINT(S): No acute fracture or subluxation. There is mild degenerative change in the medial c ompartment with minimal joint space narrowing and small marginal osteophyte. SOFT TISSUES: No significant abnormality. ADDITIONAL FINDINGS: None. Signer Name: Joon Lopez MD Signed: 11/09/2019 11:12 PM Workstation Name: [id number]
== END 2019-11-10 00:50 | disposition home or self-care (01) ==
LOC: ED 20:45
DX: K59.00 Constipation, unspecified (principal); Z53.21 Procedure and treatment not carried out due to patient leaving prior to being seen by health care provider

== ENCOUNTER 2019-11-11 22:35 | Emergency (ER) | payer SELFPAY ==
[2019-11-11 22:58] VITALS: BP 146/97
[2019-11-12 00:44] LABS: Basophils % (Auto) 0.9 % (0.0-1.8); Eosinophils # (Auto) 0.1 K/mm3 (0.0-0.4); Eosinophils % (Auto) 1.3 % (0.0-4.3); Hematocrit 36.9 % (30.3-42.9); Hemoglobin 12.6 gm/dl (10.1-14.3); Lymphocytes # (Auto) 2.5 K/mm3 (1.2-5.4); Lymphocytes % (Auto) 49.1 % (13.4-35.0); Mean Corpuscular HGB Conc 34 % (30-34); Mean Corpuscular Volume 90 fl (79-97); Monocytes # (Auto) 0.5 K/mm3 (0.0-0.8); Monocytes % (Auto) 8.9 % (0.0-7.3); Platelet Count 292 K/mm3 (140-440); Red Cell Distribution Width 14.4 % (13.2-15.2)
[2019-11-12 01:10] LABS: Alanine Aminotransferase 13 units/L (7-56); Albumin 3.7 g/dL (3.9-5); BUN/Creatinine Ratio 10; Blood Urea Nitrogen 7 mg/dL (7-17); Calcium 9.3 mg/dL (8.4-10.2); Hemolysis Index 9
[2019-11-12 01:47] LABS: Bilirubin,Urine NEG (Negative); Blood,Urine SM (Negative); Color,Urine Yellow (Yellow); Mucus,Urine 3+ /HPF; Protein,Urine <15 mg/dL mg/dL (Negative); Urobilinogen,Urine < 2.0 mg/dL (<2.0)
--- NOTE | 2019-11-12 02:17 | Emergency Department Report ---
Chief Complaint: Abdominal Pain Stated Complaint: CHEST PAIN Time Seen by Provider: 11/12/19 01:52 - HPI History of Present Illness: 39-year-old obese female presents to the emergency room reporting that she has chest pain but she points to her epigastric area patient reports that she has severe acid reflux and her medication is not working. Patient has not seen a GI specialist in several years. Patient denies any nausea vomiting. Patient denies any shortness of breath. - Exam Vital Signs: Vital Signs 11/11/19 22:55 Temperature 99.2 F Pulse Rate 79 Respiratory 18 Rate Blood Pressure 146/97 O2 Sat by Pulse 100 Oximetry Physical Exam: Alert and oriented x3 obese no acute distress nontoxic in appearance Patient is able to elevate without difficulties. MSE screening note: Focused history and physical exam performed. Due to findings the following was ordered: ED Medical Decision Making - Lab Data Result diagrams: 11/12/19 00:14 11/12/19 00:14 Laboratory Tests 11/11/19 11/12/19 11/12/19 Unknown 00:14 00:14 WBC 5.1 RBC 4.10 Hgb 12.6 Hct 36.9 MCV 90 MCH 31 MCHC 34 RDW 14.4 Plt Count 292 Lymph % (Auto) 49.1 H [place] % (Auto) 8.9 H Eos % (Auto) 1.3 Baso % (Auto) 0.9 Lymph # 2.5 [place] # 0.5 Eos # 0.1 Baso # 0.0 Seg Neutrophils % 39.8 L Seg Neutrophils # 2.0 Sodium 143 Potassium 3.9 Chloride 106.0 Carbon Dioxide 24 Anion Gap 17 BUN 7 Creatinine 0.7 Estimated GFR > 60 BUN/Creatinine Ratio 10 Glucose 114 H Calcium 9.3 Total Bilirubin 0.20 AST 15 ALT 13 Alkaline Phosphatase 59 Total Protein 7.0 Albumin 3.7 L Albumin/Globulin Ratio 1.1 HCG, Qual Urine Bilirubin Neg Urine RBC (Auto) 2.0 U Epithel Cells (Auto) 8.0 11/12/19 00:14 WBC RBC Hgb Hct MCV MCH MCHC RDW Plt Count Lymph % (Auto) [place] % (Auto) Eos % (Auto) Baso % (Auto) Lymph # [place] # Eos # Baso # Seg Neutrophils % Seg Neutrophils # Sodium Potassium Chloride Carbon Dioxide Anion Gap BUN Creatinine Estimated GFR BUN/Creatinine Ratio Glucose Calcium Total Bilirubin AST ALT Alkaline Phosphatase Total Protein Albumin Albumin/Globulin Ratio HCG, Qual Negative Urine Bilirubin Urine RBC (Auto) U Epithel Cells (Auto) - EKG Data EKG shows normal: sinus rhythm Rate: normal ED Disposition for MSE Clinical Impression: GERD (gastroesophageal reflux disease) Qualifiers: Esophagitis presence: without esophagitis Qualified Code(s): K21.9 - Gastro- esophageal reflux disease without esophagitis Disposition: TO HOME OR SELFCARE Is pt being admited?: No Does the pt Need Aspirin: No Condition: Stable Instructions: Abdominal Pain (ED) Additional Instructions: EKG is normal all labs are normal. Continue with your chronic medication follow-up with the GI specialist I have listed 1 below for your convenience. Referrals: PRIMARY CARE [Primary Care Provider] - 3-5 Days [facility] [Provider Group] - 3-5 Days
[2019-11-12] MEDS ORDERED: SUCRALFATE 1 GM/10 ML ORAL LIQD PO ONE (02:18)
== END 2019-11-12 02:10 | disposition home or self-care (01) ==
LOC: ED 22:35
DX: K21.9 Gastro-esophageal reflux disease without esophagitis (principal)
CPT/HCPCS: 36415; 80053; 81001; 84703; 85025; 93005; 93010

== ENCOUNTER 2019-11-13 17:56 | Emergency (ER) | payer SELFPAY ==
--- NOTE | 2019-11-13 19:49 | Event Note ---
ED Screening Note ED Screening Note: states she drank a pepsi at 5PM states it caused her to breathe hard states it felt like a burning sensation she has reflux and has been evaluated in the ED on multiple occasions states she has n/v no swelling no rash no throat swelling no sore throat no difficulty talking speaking in full sentence states she has a primary care doctor but has not seen them since two weeks
[2019-11-13 19:53] VITALS: BP 138/66
--- NOTE | 2019-11-13 19:58 | Emergency Department Report ---
Chief Complaint: Medical Clearance Stated Complaint: SHIRA Time Seen by Provider: 11/13/19 19:48 - HPI History of Present Illness: pt is a 39 yo female who states she drank a pepsi at 5PM states it caused her to breathe hard states it felt like a burning sensation she has hx of reflux and has been evaluated in the ED on multiple occasions and had multiple work ups states she has occasional n/v no swelling no rash no throat swelling no sore throat no difficulty talking speaking in full sentence states she has a primary care doctor but has not seen them since two weeks when she has been having these symptoms VSS On exam: Non toxic appearing, no acute distress atraumatic, normocephalic normal appearance of the eyes, PERRL, EOMI, no periorbital edema or ecchymosis moist mucus membranes normal oropharynx, no uvular edema, uvula is midline, no signs of angioedema regular heart rate and rhythm, no gallops, no rubs, no murmurs breath sounds are clear bilaterally, no w/r/r, no stridor A&O x4, no focal neuro deficit skin is warm, dry, intact pt is presenting with symptoms related to her acid reflux she is having no symptoms currently no signs of allergic reaction, no signs of angioedema advised pt please take your medications for acid reflux, you have to take them for 12 weeks for the medicine to work. please follow up with a GI doctor for further evaluation. please follow up with a primary care doctor. stop drinking sodas. follow the diet for acid reflux. return to the emergency room for any new or worsening symptoms. - Exam Vital Signs: Vital Signs 11/13/19 19:49 Temperature 98 F Pulse Rate 64 Respiratory 18 Rate Blood Pressure 138/66 O2 Sat by Pulse 98 Oximetry MSE screening note: Focused history and physical exam performed. ED Disposition for MSE Clinical Impression: GERD (gastroesophageal reflux disease) Qualifiers: Esophagitis presence: without esophagitis Qualified Code(s): K21.9 - Gastro- esophageal reflux disease without esophagitis Disposition: MED SCREENING EXAM-LEFT Is pt being admited?: No Does the pt Need Aspirin: No Condition: Stable Instructions: Diet for Ulcers and Gastritis (ED), Gastroesophageal Reflux Disease (ED) Additional Instructions: please take your medications for acid reflux, you have to take them for 12 weeks for the medicine to work. please follow up with a GI doctor for further evaluation. please follow up with a primary care doctor. stop drinking sodas. follow the diet for acid reflux. return to the emergency room for any new or worsening symptoms. Referrals: [facility] [Provider Group] - 2-3 Days FREEDOM RODAS MD [Staff Physician] - 2-3 Days [facility] [Outside] - 2-3 Days [facility] [Outside] - 2-3 Days Time of Disposition: 19:56 Print Language: MAORI
== END 2019-11-13 20:28 | disposition left against medical advice (07) ==
LOC: ED 17:56
DX: K21.9 Gastro-esophageal reflux disease without esophagitis (principal)
CPT/HCPCS: 99282

== ENCOUNTER 2019-11-20 19:56 | Emergency (ER) | payer SELFPAY ==
--- NOTE | 2019-11-20 20:28 | Event Note ---
ED Screening Note Date of service: 11/20/19 Time: 20:27 ED Screening Note: Pt complains of cough, SOB, and body aches This initial assessment/diagnostic orders/clinical plan/treatment(s) is/are subject to change based on patients health status, clinical progression and re- assessment by fellow clinical providers in the ED. Further treatment and workup at subsequent clinical providers discretion. Patient/guardian urged not to elope from the ED as their condition may be serious if not clinically assessed and managed. Initial orders include: CXR
--- NOTE | 2019-11-20 21:06 | XRay Report ---
CHEST 2 VIEWS INDICATION / CLINICAL INFORMATION: shortness of breath. COMPARISON: None available. FINDINGS: SUPPORT DEVICES: None. HEART / MEDIASTINUM: No significant abnormality. LUNGS / PLEURA: No significant pulmonary or pleural abnormality. No pneumothorax. ADDITIONAL FINDINGS: No significant additional findings. IMPRESSION: 1. No acute findings. Signer Name: Loc Penaloza MD Signed: 11/20/2019 9:02 PM Workstation Name: [id number]
--- NOTE | 2019-11-20 21:56 | Emergency Department Report ---
- General Chief Complaint: Upper Respiratory Infection Stated Complaint: SORE THROAT/CHEST PAIN Time Seen by Provider: 11/20/19 20:26 Source: patient Mode of arrival: Ambulatory Limitations: No Limitations - History of Present Illness Initial Comments: 39-year-old female the past medical history hypertension comes to the hospital complaining to 3 days of nonproductive cough, nasal congestion, postnasal drip, and sore throat. Patient also experiencing body aches, fatigue, and sweating episodes without documented fever. Patient does not complain of significant shortness of breath. No recent travel reported - Related Data Previous Rx's Medication Instructions Recorded Last Taken Type Azithromycin [Zithromax Z-ROXANN] 250 mg PO DAILY #6 tablet 08/23/18 Unknown Rx Benzonatate [Tessalon Perle] 100 mg PO Q8H PRN #20 capsule 08/23/18 Unknown Rx Prednisone [predniSONE 10 mg 10 mg PO .TAPER #1 tab.ds.pk 08/23/18 Unknown Rx (6-Day Pack, 21 Tabs)] hydrOXYzine HCL [Atarax] 25 mg PO Q6HR PRN #20 tablet 10/12/18 Unknown Rx Dicyclomine [Bentyl] 10 mg PO QID PRN #20 capsule 05/08/19 Unknown Rx Famotidine [Pepcid] 20 mg PO BID #60 tablet 05/08/19 Unknown Rx Menthol/Camphor [[place] 50 gm TP QID PRN #1 cream..g. 05/08/19 Unknown Rx Neck-Shoulder Cream] Metoclopramide [Reglan] 10 mg PO QID PRN #30 tablet 05/08/19 Unknown Rx Sulfamethoxazole/Trimethoprim 1 each PO BID #14 tablet 07/20/19 Unknown Rx [Bactrim DS TAB] traMADoL [Ultram 50 MG tab] 50 mg PO Q6HR PRN #12 tablet 07/20/19 Unknown Rx Famotidine [Pepcid] 40 mg PO QHS #30 tablet 10/22/19 Unknown Rx Ondansetron [Zofran Odt] 4 mg PO Q8HR #20 tab.rapdis 10/22/19 Unknown Rx traMADoL [Ultram 50 MG tab] 50 mg PO Q6HR PRN #12 tablet 10/22/19 Unknown Rx Pantoprazole [Protonix TAB] 20 mg PO QDAY #30 arely.dr 11/01/19 Unknown Rx traMADoL [Ultram] 50 mg PO Q4HR PRN #14 tablet 11/10/19 Unknown Rx Sodium Chloride [Saline Nasal 1 - 2 sprays NS PRN PRN #1 bottle 11/20/19 Unknown Rx [place]] traMADoL [Ultram 50 MG tab] 50 mg PO Q6HR PRN #20 tablet 11/20/19 Unknown Rx Allergies Allergy/AdvReac Type Severity Reaction Status Date / Time acetaminophen [From Tylenol] Allergy Itching Verified 04/02/17 23:29 ketorolac tromethamine Allergy Rash Verified 06/07/18 14:22 [From Toradol] ED Review of Systems ROS: Stated complaint: SORE THROAT/CHEST PAIN Other details as noted in HPI Comment: All other systems reviewed and negative ED Past Medical Hx - Past Medical History Previous Medical History?: Yes Hx Hypertension: Yes (Noncompliant with Rx) Hx Congestive Heart Failure: No Hx Diabetes: No Hx GERD: Yes Hx Sickle Cell Disease: No Hx Arthritis: Yes Hx Asthma: No Hx COPD: No Hx HIV: No - Surgical History Past Surgical History?: No - Social History Smoking Status: Never Smoker Substance Use Type: None - Medications Home Medications: Home Medications Medication Instructions Recorded Confirmed Last Taken Type Azithromycin [Zithromax Z-ROXANN] 250 mg PO DAILY #6 tablet 08/23/18 Unknown Rx Benzonatate [Tessalon Perle] 100 mg PO Q8H PRN #20 capsule 08/23/18 Unknown Rx Prednisone [predniSONE 10 mg 10 mg PO .TAPER #1 tab.ds.pk 08/23/18 Unknown Rx (6-Day Pack, 21 Tabs)] hydrOXYzine HCL [Atarax] 25 mg PO Q6HR PRN #20 tablet 10/12/18 Unknown Rx Dicyclomine [Bentyl] 10 mg PO QID PRN #20 capsule 05/08/19 Unknown Rx Famotidine [Pepcid] 20 mg PO BID #60 tablet 05/08/19 Unknown Rx Menthol/Camphor [[place] 50 gm TP QID PRN #1 cream..g. 05/08/19 Unknown Rx Neck-Shoulder Cream] Metoclopramide [Reglan] 10 mg PO QID PRN #30 tablet 05/08/19 Unknown Rx Sulfamethoxazole/Trimethoprim 1 each PO BID #14 tablet 07/20/19 Unknown Rx [Bactrim DS TAB] traMADoL [Ultram 50 MG tab] 50 mg PO Q6HR PRN #12 tablet 07/20/19 Unknown Rx Famotidine [Pepcid] 40 mg PO QHS #30 tablet 10/22/19 Unknown Rx Ondansetron [Zofran Odt] 4 mg PO Q8HR #20 tab.rapdis 10/22/19 Unknown Rx traMADoL [Ultram 50 MG tab] 50 mg PO Q6HR PRN #12 tablet 10/22/19 Unknown Rx Pantoprazole [Protonix TAB] 20 mg PO QDAY #30 tablet.dr 11/01/19 Unknown Rx traMADoL [Ultram] 50 mg PO Q4HR PRN #14 tablet 11/10/19 Unknown Rx Sodium Chloride [Saline Nasal 1 - 2 sprays NS PRN PRN #1 bottle 11/20/19 Unknown Rx [place]] traMADoL [Ultram 50 MG tab] 50 mg PO Q6HR PRN #20 tablet 11/20/19 Unknown Rx ED Physical Exam - General Limitations: No Limitations - Other Other exam information: General: No acute distress Head: Atraumatic Eyes: normal appearance ENT: Moist mucous membranes, no posterior exudates or tender cervical lymphadenopathy Neck: Normal appearance, no midline tenderness Chest: Clear to auscultation bilaterally CV: Regular rate and rhythm Abdomen: Soft, normal bowel sounds, nontender, nondistended, no rebound or guarding Back: Normal inspection Extremity: Normal inspection, full range of motion Neuro: Alert O x 3, no facial asymmetry, speech clear, no gross motor sensory deficit Psych: Appropriate behavior Skin: No rash ED Course Vital Signs 11/20/19 20:04 Temperature 99.1 F Pulse Rate 91 H Respiratory 18 Rate Blood Pressure 159/94 O2 Sat by Pulse 100 Oximetry ED Medical Decision Making - Radiology Data Radiology results: report reviewed CHEST 2 VIEWS INDICATION / CLINICAL INFORMATION: shortness of breath. COMPARISON: None available. FINDINGS: SUPPORT DEVICES: None. HEART / MEDIASTINUM: No significant abnormality. LUNGS / PLEURA: No significant pulmonary or pleural abnormality. No pneumothorax. ADDITIONAL FINDINGS: No significant additional findings. IMPRESSION: 1. No acute findings. - Medical Decision Making Patient has symptoms of a URI with a negative chest x-ray. Patient be treated symptomatically and follow-up with PMD encourage - Differential Diagnosis Pneumonia, bronchitis, URI Critical Care Time: No Critical care attestation.: If time is entered above; I have spent that time in minutes in the direct care of this critically ill patient, excluding procedure time. ED Disposition Clinical Impression: URI (upper respiratory infection) Disposition: TO HOME OR SELFCARE Is pt being admited?: No Does the pt Need Aspirin: No Condition: Stable Instructions: Upper Respiratory Infection (ED) Additional Instructions: Take the medication as prescribed. Follow-up with your doctor or doctor/clinic provided. Return if symptoms worsen as indicated by your discharge instructions. You may also try [id number] product such as Cold-Eeze and Coricidin HBP to help with your cold symptoms. Prescriptions: Sodium Chloride [Saline Nasal [place]] 1 - 2 sprays NS PRN PRN #1 bottle PRN Reason: Nasal Congestion traMADoL [Ultram 50 MG tab] 50 mg PO Q6HR PRN #20 tablet PRN Reason: Pain Referrals: PRIMARY CAREMD [Primary Care Provider] - 3-5 Days FREEDOM RODAS MD [Staff Physician] - 3-5 Days Time of Disposition: 21:55
[2019-11-20 22:25] VITALS: BP 134/91
== END 2019-11-20 22:25 | disposition home or self-care (01) ==
LOC: ED 19:56
DX: J06.9 Acute upper respiratory infection, unspecified (principal); I10 Essential (primary) hypertension; K21.9 Gastro-esophageal reflux disease without esophagitis; M19.90 Unspecified osteoarthritis, unspecified site; Z79.899 Other long term (current) drug therapy; Z88.6 Allergy status to analgesic agent
CPT/HCPCS: 71046

== ENCOUNTER 2019-11-21 07:05 | Emergency (ER) | payer SELFPAY ==
[2019-11-21 07:22] VITALS: BP 140/87
[2019-11-21 09:40] LABS: Basophils # (Auto) 0.1 K/mm3 (0.0-0.1); Basophils % (Auto) 0.7 % (0.0-1.8); Eosinophils # (Auto) 0.1 K/mm3 (0.0-0.4); Eosinophils % (Auto) 1.2 % (0.0-4.3); Hematocrit 37.3 % (30.3-42.9); Hemoglobin 12.5 gm/dl (10.1-14.3); Lymphocytes % (Auto) 27.5 % (13.4-35.0); Mean Corpuscular HGB Conc 34 % (30-34); Mean Corpuscular Volume 89 fl (79-97); Monocytes # (Auto) 0.7 K/mm3 (0.0-0.8); Monocytes % (Auto) 9.2 % (0.0-7.3); Platelet Count 292 K/mm3 (140-440); Red Blood Count 4.18 M/mm3 (3.65-5.03); Red Cell Distribution Width 14.4 % (13.2-15.2)
[2019-11-21 09:56] LABS: Alanine Aminotransferase 8 units/L (7-56); Albumin 3.8 g/dL (3.9-5); BUN/Creatinine Ratio 9; Blood Urea Nitrogen 6 mg/dL (7-17); Calcium 8.9 mg/dL (8.4-10.2); Hemolysis Index 2
--- NOTE | 2019-11-21 10:06 | Emergency Department Report ---
ED General Adult HPI - General Chief complaint: Medical Clearance Stated complaint: CHEST PAIN Time Seen by Provider: 11/21/19 08:18 Source: patient Mode of arrival: Ambulatory Limitations: No Limitations - History of Present Illness Initial comments: This is a 39-year-old female nontoxic, well nourished in appearance, no acute signs of distress presents to the ED with c/o of generalized body aches x3 days. Patient was seen yesterday and was discharged with diagnosis of upper respiratory infection and stated since she went home body aches has increased. Patient otherwise denies any chest pain, shortness of breath, fever, chills, nausea, vomiting, headache, stiff neck, numbness, tingling. Patient denies any other symptoms or complaints. -: days(s) Radiation: non-radiation Severity scale (0 -10): 3 Quality: aching Consistency: constant Improves with: none Worsens with: none Associated Symptoms: denies other symptoms. denies: confusion, chest pain, cough, diaphoresis, fever/chills, headaches, loss of appetite, malaise, nausea/vomiting, rash, seizure, shortness of breath, syncope, weakness - Related Data Previous Rx's Medication Instructions Recorded Last Taken Type Azithromycin [Zithromax Z-ROXANN] 250 mg PO DAILY #6 tablet 08/23/18 Unknown Rx Benzonatate [Tessalon Perle] 100 mg PO Q8H PRN #20 capsule 08/23/18 Unknown Rx Prednisone [predniSONE 10 mg 10 mg PO .TAPER #1 tab.ds.pk 08/23/18 Unknown Rx (6-Day Pack, 21 Tabs)] hydrOXYzine HCL [Atarax] 25 mg PO Q6HR PRN #20 tablet 10/12/18 Unknown Rx Dicyclomine [Bentyl] 10 mg PO QID PRN #20 capsule 05/08/19 Unknown Rx Famotidine [Pepcid] 20 mg PO BID #60 tablet 05/08/19 Unknown Rx Menthol/Camphor [[place] 50 gm TP QID PRN #1 cream..g. 05/08/19 Unknown Rx Neck-Shoulder Cream] Metoclopramide [Reglan] 10 mg PO QID PRN #30 tablet 05/08/19 Unknown Rx Sulfamethoxazole/Trimethoprim 1 each PO BID #14 tablet 07/20/19 Unknown Rx [Bactrim DS TAB] traMADoL [Ultram 50 MG tab] 50 mg PO Q6HR PRN #12 tablet 07/20/19 Unknown Rx Famotidine [Pepcid] 40 mg PO QHS #30 tablet 10/22/19 Unknown Rx Ondansetron [Zofran Odt] 4 mg PO Q8HR #20 tab.rapdis 10/22/19 Unknown Rx traMADoL [Ultram 50 MG tab] 50 mg PO Q6HR PRN #12 tablet 10/22/19 Unknown Rx Pantoprazole [Protonix TAB] 20 mg PO QDAY #30 tablet. 11/01/19 Unknown Rx traMADoL [Ultram] 50 mg PO Q4HR PRN #14 tablet 11/10/19 Unknown Rx Sodium Chloride [Saline Nasal 1 - 2 sprays NS PRN PRN #1 bottle 11/20/19 Unknown Rx [place]] traMADoL [Ultram 50 MG tab] 50 mg PO Q6HR PRN #20 tablet 11/20/19 Unknown Rx Allergies Allergy/AdvReac Type Severity Reaction Status Date / Time acetaminophen [From Tylenol] Allergy Itching Verified 04/02/17 23:29 ketorolac tromethamine Allergy Rash Verified 06/07/18 14:22 [From Toradol] ED Review of Systems ROS: Stated complaint: CHEST PAIN Other details as noted in HPI Constitutional: denies: chills, fever Eyes: denies: eye pain, eye discharge, vision change ENT: denies: ear pain, throat pain Respiratory: denies: cough, shortness of breath, wheezing Cardiovascular: denies: chest pain, palpitations Endocrine: no symptoms reported Gastrointestinal: denies: abdominal pain, nausea, diarrhea Genitourinary: denies: urgency, dysuria, discharge Musculoskeletal: denies: back pain, joint swelling, arthralgia Skin: denies: rash, lesions Neurological: denies: headache, weakness, paresthesias Psychiatric: denies: anxiety, depression Hematological/Lymphatic: denies: easy bleeding, easy bruising ED Past Medical Hx - Past Medical History Previous Medical History?: Yes Hx Hypertension: Yes (Noncompliant with Rx) Hx Congestive Heart Failure: No Hx Diabetes: No Hx GERD: Yes Hx Sickle Cell Disease: No Hx Arthritis: Yes Hx Asthma: No Hx COPD: No Hx HIV: No - Social History Smoking Status: Never Smoker Substance Use Type: None - Medications Home Medications: Home Medications Medication Instructions Recorded Confirmed Last Taken Type Azithromycin [Zithromax Z-ROXANN] 250 mg PO DAILY #6 tablet 08/23/18 Unknown Rx Benzonatate [Tessalon [place]] 100 mg PO Q8H PRN #20 capsule 08/23/18 Unknown Rx Prednisone [predniSONE 10 mg 10 mg PO .TAPER #1 tab.ds.pk 08/23/18 Unknown Rx (6-Day Pack, 21 Tabs)] hydrOXYzine HCL [Atarax] 25 mg PO Q6HR PRN #20 tablet 10/12/18 Unknown Rx Dicyclomine [Bentyl] 10 mg PO QID PRN #20 capsule 05/08/19 Unknown Rx Famotidine [Pepcid] 20 mg PO BID #60 tablet 05/08/19 Unknown Rx Menthol/Camphor [[place] 50 gm TP QID PRN #1 cream..g. 05/08/19 Unknown Rx Neck-Shoulder Cream] Metoclopramide [Reglan] 10 mg PO QID PRN #30 tablet 05/08/19 Unknown Rx Sulfamethoxazole/Trimethoprim 1 each PO BID #14 tablet 07/20/19 Unknown Rx [Bactrim DS TAB] traMADoL [Ultram 50 MG tab] 50 mg PO Q6HR PRN #12 tablet 07/20/19 Unknown Rx Famotidine [Pepcid] 40 mg PO QHS #30 tablet 10/22/19 Unknown Rx Ondansetron [Zofran Odt] 4 mg PO Q8HR #20 tab.rapdis 10/22/19 Unknown Rx traMADoL [Ultram 50 MG tab] 50 mg PO Q6HR PRN #12 tablet 10/22/19 Unknown Rx Pantoprazole [Protonix TAB] 20 mg PO QDAY #30 tablet.dr 11/01/19 Unknown Rx traMADoL [Ultram] 50 mg PO Q4HR PRN #14 tablet 11/10/19 Unknown Rx Sodium Chloride [Saline Nasal 1 - 2 sprays NS PRN PRN #1 bottle 11/20/19 Unknown Rx [place]] traMADoL [Ultram 50 MG tab] 50 mg PO Q6HR PRN #20 tablet 11/20/19 Unknown Rx ED Physical Exam - General Limitations: No Limitations General appearance: alert, in no apparent distress - Head Head exam: Present: atraumatic, normocephalic - Eye Eye exam: Present: normal appearance - ENT ENT exam: Present: normal exam, normal orophraynx - Neck Neck exam: Present: normal inspection, full ROM. Absent: tenderness, meningismus, lymphadenopathy - Respiratory Respiratory exam: Present: normal lung sounds bilaterally. Absent: respiratory distress, wheezes, rales, rhonchi, stridor, chest wall tenderness, accessory muscle use, decreased breath sounds, prolonged expiratory - Cardiovascular Cardiovascular Exam: Present: regular rate, normal rhythm, normal heart sounds. Absent: bradycardia, tachycardia, irregular rhythm, systolic murmur, diastolic murmur, rubs, gallop - GI/Abdominal GI/Abdominal exam: Present: soft, normal bowel sounds. Absent: distended, tenderness, guarding, rebound, rigid, diminished bowel sounds - Extremities Exam Extremities exam: Present: normal inspection, full ROM, normal capillary refill. Absent: tenderness - Back Exam Back exam: Present: normal inspection, full ROM. Absent: tenderness, CVA tenderness (R), CVA tenderness (L), muscle spasm, paraspinal tenderness, vertebral tenderness, rash noted - Neurological Exam Neurological exam: Present: alert, oriented X3, normal gait - Psychiatric Psychiatric exam: Present: normal affect, normal mood - Skin Skin exam: Present: warm, dry, intact, normal color. Absent: rash ED Course Vital Signs 11/21/19 07:22 Temperature 98.8 F Pulse Rate 76 Respiratory 16 Rate Blood Pressure 140/87 [Right] O2 Sat by Pulse 100 Oximetry - Reevaluation(s) Reevaluation #1: 11/21/19 10:07 Patient is speaking in full sentences with no signs of distress noted. ED Medical Decision Making - Lab Data Result diagrams: 11/21/19 09:30 11/21/19 09:25 - Medical Decision Making This is a 39-year-old female that presents with generalized body aches. Patient is stable and was examined by me. Chest x-ray has been reviewed that was taken yesterday. Patient was instructed to take medication that was prescribed at discharge earlier yesterday. Labs are unremarkable. Patient was instructed to follow-up with a primary care doctor in 3-5 days or if symptoms worsen and continue return to emergency room as soon as possible. At time of discharge, the patient does not seem toxic or ill in appearance. No acute signs of distress noted. Patient agrees to discharge treatment plan of care. No further questions noted by the patient. Critical care attestation.: If time is entered above; I have spent that time in minutes in the direct care of this critically ill patient, excluding procedure time. ED Disposition Clinical Impression: Generalized body aches Disposition: DC-01 TO HOME OR SELFCARE Is pt being admited?: No Does the pt Need Aspirin: No Condition: Stable Additional Instructions: Follow-up with a primary care doctor in 3-5 days or if symptoms worsen and continue return to emergency room as soon as possible. Referrals: PRIMARY MD RONY [Primary Care Provider] - 3-5 Days FREEDOM RODAS MD [Staff Physician] - 3-5 Days [facility] [Outside] - 3-5 Days Forms: Work/School Release Form(ED)
== END 2019-11-21 10:17 | disposition home or self-care (01) ==
LOC: ED 07:05
DX: M79.10 Myalgia, unspecified site (principal); R07.9 Chest pain, unspecified; I10 Essential (primary) hypertension; K21.9 Gastro-esophageal reflux disease without esophagitis; M19.90 Unspecified osteoarthritis, unspecified site; Z88.6 Allergy status to analgesic agent; Z79.899 Other long term (current) drug therapy
CPT/HCPCS: 36415; 80053; 84484; 84703; 85025

== ENCOUNTER 2019-11-27 07:39 | Emergency (ER) | payer SELFPAY ==
[2019-11-27 07:53] VITALS: BP 154/93
--- NOTE | 2019-11-27 09:06 | Emergency Department Report ---
Chief Complaint: Allergic Reaction Stated Complaint: ALLERGIC REACTION Time Seen by Provider: 11/27/19 08:48 - HPI History of Present Illness: 39-year-old -[place] female presents to the emergency room complaining of redness to her chest and itching all over her chest. Patient states that she thinks she is having allergic reaction. Patient reports that she had put putting Vicks salve on her chest for sinus issues. Patient denies any chest pain shortness of breathing. - Exam Vital Signs: Vital Signs 11/27/19 07:44 Temperature 98.0 F Pulse Rate 67 Respiratory 20 Rate Blood Pressure 154/93 O2 Sat by Pulse 100 Oximetry Physical Exam: Gen: alert oriented NAD Cardic: regular rate and rhythm no murmurs appreciated Resp: Clear to auscultation bilateral no wheezing no rales or rhonchi. Abdomen: Soft nontender nondistended normal bowel sounds. Mini neuro: , Alert and oriented time 3 Crainal nerve II-IIX intact Skin: Nonerythematous no rash appreciated MSE screening note: Focused history and physical exam performed. Due to findings the following was ordered: 39-year-old -[place] female presents to the emergency room complaining of redness to her chest and itching all over her chest. Patient states that she thinks she is having allergic reaction. Patient reports that she had put putting Vicks salve on her chest for sinus issues. Patient denies any chest pain shortness of breathing. ED Disposition for MSE Clinical Impression: Contact dermatitis Disposition: DC-01 TO HOME OR SELFCARE Is pt being admited?: No Does the pt Need Aspirin: No Condition: Stable Instructions: Contact Dermatitis (ED) Additional Instructions: Use Benadryl as needed for itching. Discontinue use of VapoRub on your chest. Try taking Claritin or Zyrtec's [id number] for allergies and sinus. Follow-up with your primary care provider. Referrals: RAJNI URIBE MD [Primary Care Provider] - 3-5 Days FREEDOM RODAS MD [Staff Physician] - 3-5 Days
== END 2019-11-27 08:55 | disposition home or self-care (01) ==
LOC: ED 07:39
DX: L30.9 Dermatitis, unspecified (principal)
CPT/HCPCS: 99282

== ENCOUNTER 2019-12-01 07:17 | Emergency (ER) | payer SELFPAY ==
[2019-12-01 07:37] VITALS: BP 179/98
--- NOTE | 2019-12-01 08:51 | Emergency Department Report ---
- General Chief Complaint: Pain General Stated Complaint: BODY PAIN Time Seen by Provider: 12/01/19 08:20 Source: patient Mode of arrival: Ambulatory Limitations: No Limitations - History of Present Illness Initial Comments: Is a pleasant 39-year-old female presents the emergency department the chief complaint of "my cold is not getting better." Patient was seen in the emergency department 3 to 4 days ago with cough, congestion and given nasal sprays and told to take [id number]-[id number] medications however she denies any improvement in her symptoms. She reports her cough and congestion is worsened. She is concerned she may have coronavirus. She denies any recent travel or contact with any persons with travel to endemic areas. She has past medical history of GERD and takes Protonix. She did not denies any oral contraceptive use or exogenous estrogen use, recent surgeries, recent travel or immobilization, fever, chills, night sweats, headache, dizziness, blurry vision, nausea, vomiting, diarrhea, chest pain, shortness of breath or any other associated symptoms. - Related Data Previous Rx's Medication Instructions Recorded Last Taken Type Azithromycin [Zithromax Z-ROXANN] 250 mg PO DAILY #6 tablet 08/23/18 Unknown Rx Benzonatate [Tessalon Perle] 100 mg PO Q8H PRN #20 capsule 08/23/18 Unknown Rx Prednisone [predniSONE 10 mg 10 mg PO .TAPER #1 tab.ds.pk 08/23/18 Unknown Rx (6-Day Pack, 21 Tabs)] hydrOXYzine HCL [Atarax] 25 mg PO Q6HR PRN #20 tablet 10/12/18 Unknown Rx Dicyclomine [Bentyl] 10 mg PO QID PRN #20 capsule 05/08/19 Unknown Rx Famotidine [Pepcid] 20 mg PO BID #60 tablet 05/08/19 Unknown Rx Menthol/Camphor [[place] 50 gm TP QID PRN #1 cream..g. 05/08/19 Unknown Rx Neck-Shoulder Cream] Metoclopramide [Reglan] 10 mg PO QID PRN #30 tablet 05/08/19 Unknown Rx Sulfamethoxazole/Trimethoprim 1 each PO BID #14 tablet 07/20/19 Unknown Rx [Bactrim DS TAB] traMADoL [Ultram 50 MG tab] 50 mg PO Q6HR PRN #12 tablet 07/20/19 Unknown Rx Famotidine [Pepcid] 40 mg PO QHS #30 tablet 10/22/19 Unknown Rx Ondansetron [Zofran Odt] 4 mg PO Q8HR #20 tab.rapdis 10/22/19 Unknown Rx traMADoL [Ultram 50 MG tab] 50 mg PO Q6HR PRN #12 tablet 10/22/19 Unknown Rx Pantoprazole [Protonix TAB] 20 mg PO QDAY #30 tablet.dr 11/01/19 Unknown Rx traMADoL [Ultram] 50 mg PO Q4HR PRN #14 tablet 11/10/19 Unknown Rx Sodium Chloride [Saline Nasal 1 - 2 sprays NS PRN PRN #1 bottle 11/20/19 Unknown Rx [place]] traMADoL [Ultram 50 MG tab] 50 mg PO Q6HR PRN #20 tablet 11/20/19 Unknown Rx Promethazine Dm (Nf) [Phenergan DM 5 ml PO Q6H PRN #60 12/01/19 Unknown Rx 6.25-15 mg/5 ml] methylPREDNISolone [Medrol 4MG 4 mg PO ONCE #1 tab.ds.pk 12/01/19 Unknown Rx DOSEPAK (21 tabs)] Allergies Allergy/AdvReac Type Severity Reaction Status Date / Time acetaminophen [From Tylenol] Allergy Itching Verified 04/02/17 23:29 ketorolac tromethamine Allergy Rash Verified 06/07/18 14:22 [From Toradol] ED Review of Systems ROS: Stated complaint: BODY PAIN Other details as noted in HPI Comment: All other systems reviewed and negative Constitutional: denies: chills, fever Eyes: denies: eye pain, eye discharge, vision change ENT: as per HPI, congestion. denies: ear pain, throat pain Respiratory: see HPI, cough. denies: shortness of breath, wheezing Cardiovascular: denies: chest pain, palpitations Endocrine: no symptoms reported Gastrointestinal: denies: abdominal pain, nausea, diarrhea Genitourinary: denies: urgency, dysuria, discharge Musculoskeletal: denies: back pain, joint swelling, arthralgia Skin: denies: rash, lesions Neurological: denies: headache, weakness, paresthesias Psychiatric: denies: anxiety, depression Hematological/Lymphatic: denies: easy bleeding, easy bruising ED Past Medical Hx - Past Medical History Previous Medical History?: Yes Hx Hypertension: Yes (Noncompliant with Rx) Hx Congestive Heart Failure: No Hx Diabetes: No Hx GERD: Yes Hx Sickle Cell Disease: No Hx Arthritis: Yes Hx Asthma: No Hx COPD: No Hx HIV: No - Social History Smoking Status: Never Smoker Substance Use Type: None - Medications Home Medications: Home Medications Medication Instructions Recorded Confirmed Last Taken Type Azithromycin [Zithromax Z-ROXANN] 250 mg PO DAILY #6 tablet 08/23/18 Unknown Rx Benzonatate [Tessalon Perle] 100 mg PO Q8H PRN #20 capsule 08/23/18 Unknown Rx Prednisone [predniSONE 10 mg 10 mg PO .TAPER #1 tab.ds.pk 08/23/18 Unknown Rx (6-Day Pack, 21 Tabs)] hydrOXYzine HCL [Atarax] 25 mg PO Q6HR PRN #20 tablet 10/12/18 Unknown Rx Dicyclomine [Bentyl] 10 mg PO QID PRN #20 capsule 05/08/19 Unknown Rx Famotidine [Pepcid] 20 mg PO BID #60 tablet 05/08/19 Unknown Rx Menthol/Camphor [[place] 50 gm TP QID PRN #1 cream..g. 05/08/19 Unknown Rx Neck-Shoulder Cream] Metoclopramide [Reglan] 10 mg PO QID PRN #30 tablet 05/08/19 Unknown Rx Sulfamethoxazole/Trimethoprim 1 each PO BID #14 tablet 07/20/19 Unknown Rx [Bactrim DS TAB] traMADoL [Ultram 50 MG tab] 50 mg PO Q6HR PRN #12 tablet 07/20/19 Unknown Rx Famotidine [Pepcid] 40 mg PO QHS #30 tablet 10/22/19 Unknown Rx Ondansetron [Zofran Odt] 4 mg PO Q8HR #20 tab.rapdis 10/22/19 Unknown Rx traMADoL [Ultram 50 MG tab] 50 mg PO Q6HR PRN #12 tablet 10/22/19 Unknown Rx Pantoprazole [Protonix TAB] 20 mg PO QDAY #30 tablet.dr 11/01/19 Unknown Rx traMADoL [Ultram] 50 mg PO Q4HR PRN #14 tablet 11/10/19 Unknown Rx Sodium Chloride [Saline Nasal 1 - 2 sprays NS PRN PRN #1 bottle 11/20/19 Unkno wn Rx [place]] traMADoL [Ultram 50 MG tab] 50 mg PO Q6HR PRN #20 tablet 11/20/19 Unknown Rx Promethazine Dm (Nf) [Phenergan DM 5 ml PO Q6H PRN #60 12/01/19 Unknown Rx 6.25-15 mg/5 ml] methylPREDNISolone [Medrol 4MG 4 mg PO ONCE #1 tab.ds.pk 12/01/19 Unknown Rx DOSEPAK (21 tabs)] ED Physical Exam - General Limitations: No Limitations General appearance: alert, in no apparent distress - Head Head exam: Present: atraumatic, normocephalic - Eye Eye exam: Present: normal appearance, PERRL, EOMI Pupils: Present: normal accommodation - ENT ENT exam: Present: normal exam, normal orophraynx, mucous membranes moist, TM's normal bilaterally - Neck Neck exam: Present: normal inspection, full ROM. Absent: tenderness, meningismus - Respiratory Respiratory exam: Present: normal lung sounds bilaterally. Absent: respiratory distress, wheezes, rales, rhonchi, stridor - Cardiovascular Cardiovascular Exam: Present: regular rate, normal rhythm, normal heart sounds. Absent: systolic murmur, diastolic murmur, rubs, gallop - GI/Abdominal GI/Abdominal exam: Present: soft, normal bowel sounds. Absent: distended, tenderness, guarding, rebound, rigid - Extremities Exam Extremities exam: Present: normal inspection - Back Exam Back exam: Present: normal inspection - Neurological Exam Neurological exam: Present: alert, oriented X3 - Psychiatric Psychiatric exam: Present: normal affect, normal mood - Skin Skin exam: Present: warm, dry, intact, normal color. Absent: rash ED Course Vital Signs 12/01/19 12/01/19 07:34 07:36 Temperature 97.6 F Pulse Rate 87 Respiratory 18 Rate Blood Pressure 179/98 O2 Sat by Pulse 96 Oximetry ED Medical Decision Making - Medical Decision Making Patient nontoxic in no acute distress. Vitals are stable. She is PERC negative making PE unlikely. She had normal lung sounds with no crackles, rhonchi, no hypoxia or tachycardia making pneumonia unlikely. She had no clinical evidence of DVT with no posterior calf tenderness, no palpable cords and negative Homans sign bilaterally. She had no nuchal rigidity and a negative Kernig and presents With No Fever Making Meningitis Unlikely. She Had No Abdominal Tenderness and No CVA Tenderness Making UTI or Pyelonephritis Unlikely. Or Other Intra- Abdominal Pathology Causing Her Symptoms. The Patient's Throat Was Unremarkable and Centor Criteria Is Negative Making Strep Throat Unlikely. I Suspect the Patient May Have Influenza and Due To Her Symptoms Starting 4 Days Ago I Think a Test for Influenza Would Likely Be a and B Inaccurately False Negative and Recommended Supportive Treatment. I Will Give Her Some Cough Medication and Short Course of Steroids Recommended Increase P.O. Fluids and Rest Follow-Up with Primary Care Doctor the Next to 3 Days. She Verbalized Understanding the Diagnosis, Treatment Plan and Follow-Up Instructions and All of Her Questions Were Answered. - Differential Diagnosis URI, sinusitis, Influenza, PE Critical care attestation.: If time is entered above; I have spent that time in minutes in the direct care of this critically ill patient, excluding procedure time. ED Disposition Clinical Impression: Viral URI with cough, Generalized body aches Disposition: - TO HOME OR SELFCARE Is pt being admited?: No Condition: Stable Instructions: Influenza (ED) Prescriptions: methylPREDNISolone [Medrol 4MG DOSEPAK (21 tabs)] 4 mg PO ONCE #1 tab.ds.pk Promethazine Dm (Nf) [Phenergan DM 6.25-15 mg/5 ml] 5 ml PO Q6H PRN #60 PRN Reason: Cough Referrals: PRIMARY CARE, [Primary Care Provider] - 3-5 Days Time of Disposition: 08:51
== END 2019-12-01 09:05 | disposition home or self-care (01) ==
LOC: ED 07:17
DX: J06.9 Acute upper respiratory infection, unspecified (principal); B97.89 Other viral agents as the cause of diseases classified elsewhere; I10 Essential (primary) hypertension; M19.90 Unspecified osteoarthritis, unspecified site; K21.9 Gastro-esophageal reflux disease without esophagitis; Z98.890 Other specified postprocedural states; Z88.6 Allergy status to analgesic agent; Z88.5 Allergy status to narcotic agent
CPT/HCPCS: 99282

== ENCOUNTER 2019-12-19 05:46 | Emergency (ER) | payer SELFPAY ==
[2019-12-19 05:53] VITALS: BP 143/73
[2019-12-19] MEDS ORDERED: ASPIRIN 325 MG TAB PO ONE (05:53)
[2019-12-19 06:59] LABS: Hemolysis Index 279
[2019-12-19 07:07] LABS: BUN/Creatinine Ratio TNR; Blood Urea Nitrogen TNR mg/dL (7-17); Calcium TNR mg/dL (8.4-10.2)
[2019-12-19 08:46] LABS: BUN/Creatinine Ratio 17; Blood Urea Nitrogen 12 mg/dL (7-17); Hemolysis Index 11
--- NOTE | 2019-12-19 08:51 | XRay Report ---
CHEST 2 VIEWS INDICATION / CLINICAL INFORMATION: Chest Pain. COMPARISON: Chest radiograph 11/20/2019 FINDINGS: SUPPORT DEVICES: None. HEART / MEDIASTINUM: No significant abnormality. LUNGS / PLEURA: No significant pulmonary or pleural abnormality. No pneumothorax. ADDITIONAL FINDINGS: No significant additional findings. IMPRESSION: 1. No acute findings. Signer Name: Anu Orantes MD Signed: 12/19/2019 8:47 AM Workstation Name: [id number]
[2019-12-19 09:50] LABS: Basophils % (Auto) 0.7 % (0.0-1.8); Eosinophils % (Auto) 1.2 % (0.0-4.3); Hematocrit 39.7 % (30.3-42.9); Lymphocytes # (Auto) 2.5 K/mm3 (1.2-5.4); Lymphocytes % (Auto) 29.9 % (13.4-35.0); Mean Corpuscular HGB Conc 33 % (30-34); Mean Corpuscular Volume 91 fl (79-97); Monocytes # (Auto) 0.8 K/mm3 (0.0-0.8); Platelet Count 173 K/mm3 (140-440); Red Blood Count 4.36 M/mm3 (3.65-5.03); Red Cell Distribution Width 14.4 % (13.2-15.2)
[2019-12-19 09:51] LABS: Basophils # (Auto) 0.1 K/mm3 (0.0-0.1); Eosinophils # (Auto) 0.1 K/mm3 (0.0-0.4)
--- NOTE | 2019-12-19 10:28 | Emergency Department Report ---
ED General Adult HPI - General Chief complaint: Chest Pain Stated complaint: CHEST PAIN Time Seen by Provider: 12/19/19 09:57 Source: patient Mode of arrival: Ambulatory Limitations: No Limitations - Related Data Previous Rx's Medication Instructions Recorded Last Taken Type Azithromycin [Zithromax Z-ROXANN] 250 mg PO DAILY #6 tablet 08/23/18 Unknown Rx Benzonatate [Tessalon Perle] 100 mg PO Q8H PRN #20 capsule 08/23/18 Unknown Rx Prednisone [predniSONE 10 mg 10 mg PO .TAPER #1 tab.ds.pk 08/23/18 Unknown Rx (6-Day Pack, 21 Tabs)] hydrOXYzine HCL [Atarax] 25 mg PO Q6HR PRN #20 tablet 10/12/18 Unknown Rx Dicyclomine [Bentyl] 10 mg PO QID PRN #20 capsule 05/08/19 Unknown Rx Menthol/Camphor [[place] 50 gm TP QID PRN #1 cream..g. 05/08/19 Unknown Rx Neck-Shoulder Cream] Metoclopramide [Reglan] 10 mg PO QID PRN #30 tablet 05/08/19 Unknown Rx Sulfamethoxazole/Trimethoprim 1 each PO BID #14 tablet 07/20/19 Unknown Rx [Bactrim DS TAB] traMADoL [Ultram 50 MG tab] 50 mg PO Q6HR PRN #12 tablet 07/20/19 Unknown Rx Famotidine [Pepcid] 40 mg PO QHS #30 tablet 10/22/19 Unknown Rx Ondansetron [Zofran Odt] 4 mg PO Q8HR #20 tab.rapdis 10/22/19 Unknown Rx traMADoL [Ultram 50 MG tab] 50 mg PO Q6HR PRN #12 tablet 10/22/19 Unknown Rx Pantoprazole [Protonix TAB] 20 mg PO QDAY #30 tablet.dr 11/01/19 Unknown Rx traMADoL [Ultram] 50 mg PO Q4HR PRN #14 tablet 11/10/19 Unknown Rx Sodium Chloride [Saline Nasal 1 - 2 sprays NS PRN PRN #1 bottle 11/20/19 Unknown Rx [place]] traMADoL [Ultram 50 MG tab] 50 mg PO Q6HR PRN #20 tablet 11/20/19 Unknown Rx Promethazine Dm (Nf) [Phenergan DM 5 ml PO Q6H PRN #60 12/01/19 Unknown Rx 6.25-15 mg/5 ml] methylPREDNISolone [Medrol 4MG 4 mg PO ONCE #1 tab.ds.pk 12/01/19 Unknown Rx DOSEPAK (21 tabs)] Famotidine [Pepcid] 20 mg PO BID #60 tablet 12/19/19 Unknown Rx Pantoprazole [Protonix] 40 mg PO QDAY #30 tablet 12/19/19 Unknown Rx Allergies Allergy/AdvReac Type Severity Reaction Status Date / Time acetaminophen [From Tylenol] Allergy Itching Verified 04/02/17 23:29 ketorolac tromethamine Allergy Rash Verified 06/07/18 14:22 [From Toradol] ED Review of Systems ROS: Stated complaint: CHEST PAIN Other details as noted in HPI ED Past Medical Hx - Past Medical History Hx Hypertension: Yes (Noncompliant with Rx) Hx Congestive Heart Failure: No Hx Diabetes: No Hx GERD: Yes Hx Sickle Cell Disease: No Hx Arthritis: Yes Hx Asthma: No Hx COPD: No Hx HIV: No - Social History Smoking Status: Never Smoker Substance Use Type: None - Medications Home Medications: Home Medications Medication Instructions Recorded Confirmed Last Taken Type Azithromycin [Zithromax Z-ROXANN] 250 mg PO DAILY #6 tablet 08/23/18 Unknown Rx Benzonatate [Tessalon Perle] 100 mg PO Q8H PRN #20 capsule 08/23/18 Unknown Rx Prednisone [predniSONE 10 mg 10 mg PO .TAPER #1 tab.ds.pk 08/23/18 Unknown Rx (6-Day Pack, 21 Tabs)] hydrOXYzine HCL [Atarax] 25 mg PO Q6HR PRN #20 tablet 10/12/18 Unknown Rx Dicyclomine [Bentyl] 10 mg PO QID PRN #20 capsule 05/08/19 Unknown Rx Menthol/Camphor [[place] 50 gm TP QID PRN #1 cream..g. 05/08/19 Unknown Rx Neck-Shoulder Cream] Metoclopramide [Reglan] 10 mg PO QID PRN #30 tablet 05/08/19 Unknown Rx Sulfamethoxazole/Trimethoprim 1 each PO BID #14 tablet 07/20/19 Unknown Rx [Bactrim DS TAB] traMADoL [Ultram 50 MG tab] 50 mg PO Q6HR PRN #12 tablet 07/20/19 Unknown Rx Famotidine [Pepcid] 40 mg PO QHS #30 tablet 10/22/19 Unknown Rx Ondansetron [Zofran Odt] 4 mg PO Q8HR #20 tab.rapdis 10/22/19 Unknown Rx traMADoL [Ultram 50 MG tab] 50 mg PO Q6HR PRN #12 tablet 10/22/19 Unknown Rx Pantoprazole [Protonix TAB] 20 mg PO QDAY #30 tablet.dr 11/01/19 Unknown Rx traMADoL [Ultram] 50 mg PO Q4HR PRN #14 tablet 11/10/19 Unknown Rx Sodium Chloride [Saline Nasal 1 - 2 sprays NS PRN PRN #1 bottle 11/20/19 Unknown Rx [place]] traMADoL [Ultram 50 MG tab] 50 mg PO Q6HR PRN #20 tablet 11/20/19 Unknown Rx Promethazine Dm (Nf) [Phenergan DM 5 ml PO Q6H PRN #60 12/01/19 Unknown Rx 6.25-15 mg/5 ml] methylPREDNISolone [Medrol 4MG 4 mg PO ONCE #1 tab.ds.pk 12/01/19 Unknown Rx DOSEPAK (21 tabs)] Famotidine [Pepcid] 20 mg PO BID #60 tablet 12/19/19 Unknown Rx Pantoprazole [Protonix] 40 mg PO QDAY #30 tablet 12/19/19 Unknown Rx ED Physical Exam - General Limitations: No Limitations ED Course Vital Signs 12/19/19 05:52 Temperature 99.1 F Pulse Rate 84 Respiratory 16 Rate Blood Pressure 143/73 O2 Sat by Pulse 100 Oximetry ED Medical Decision Making - Lab Data Result diagrams: 12/19/19 06:17 12/19/19 07:51 - Radiology Data Radiology results: report reviewed Report Referring Physician:ED DOCPatient Name:MAME YUNPatient ID:[id number] of :[id number]:FemaleAccession:[id number] Date:[id number] Status:Finalized Findings [facility] [address] [place] [address] XRay Report Signed Patient: MAME YUN MR #: [id number] : 1980 Acct:[id number] Age/Sex: 39 / F ADM Date: 12/19/19 Loc: ED Attending Dr: Ordering Physician: WILL CARR MD Date of Service: 12/19/19 Procedure(s): XR chest 1V ap Accession Number(s): [id number] cc: ED MD LILLY Fluoro Time In Minutes: CHEST 2 VIEWS INDICATION / CLINICAL INFORMATION: Chest Pain. COMPARISON: Chest radiograph 11/20/2019 FINDINGS: SUPPORT DEVICES: None. HEART / MEDIASTINUM: No significant abnormality. LUNGS / PLEURA: No significant pulmonary or pleural abnormality. No pneumothorax. ADDITIONAL FINDINGS: No significant additional findings. IMPRESSION: 1. No acute findings. Signer Name: Anu Orantes MD Signed: 12/19/2019 8:47 AM Workstation Name: [id number] Transcribed By: [facility] Dictated By: Anu Orantes MD Electronically Authenticated By: Anu Orantes MD Signed Date/Time: 12/19/19846 DD/ 5 TD/TT: Critical care attestation.: If time is entered above; I have spent that time in minutes in the direct care of this critically ill patient, excluding procedure time. ED Disposition Clinical Impression: GERD (gastroesophageal reflux disease) Disposition: DC-01 TO HOME OR SELFCARE Is pt being admited?: No Does the pt Need Aspirin: No Condition: Stable Instructions: Gastroesophageal Reflux Disease (ED) Additional Instructions: Please take medication as prescribed. I recommend follow back up with a GI specialist. Please follow the GERD diet. Prescriptions: Famotidine [Pepcid] 20 mg PO BID #60 tablet Pantoprazole [Protonix] 40 mg PO QDAY #30 tablet Referrals: RAJNI URIBE MD [Primary Care Provider] - 3-5 Days FREEDOM RODAS MD [Staff Physician] - 3-5 Days [facility] [Provider Group] - 3-5 Days
== END 2019-12-19 10:37 | disposition home or self-care (01) ==
LOC: ED 05:46
DX: K21.9 Gastro-esophageal reflux disease without esophagitis (principal); I10 Essential (primary) hypertension; M19.90 Unspecified osteoarthritis, unspecified site; Z79.899 Other long term (current) drug therapy; Z88.6 Allergy status to analgesic agent
CPT/HCPCS: 36415; 71045; 80048; 84484; 85025; 93005; 93010

== ENCOUNTER 2020-03-24 06:01 | Emergency (ER) | payer SELFPAY ==
--- NOTE | 2020-03-24 08:23 | Emergency Department Report ---
Chief Complaint: Upper Respiratory Infection Stated Complaint: BILATERAL BREAST PAIN, COUGH Time Seen by Provider: 03/24/20 07:49 - HPI History of Present Illness: This is a 40-year-old female with no prior medical history who presents to the ED complaining of breast pain x1 month. Patient states that breast pain travels from one place to the other. Patient states that she recently saw some article correlating Prozac to breast cancer and states that she was on Prozac for some years and she is worried that it could be breast cancer. Patient denies any breast leaking, breast mass, fever, chills, shortness of breath or any other symptoms. - ROS Review of Systems: As noted in HPI - Exam Vital Signs: Vital Signs 03/24/20 06:05 Temperature 98.2 F Pulse Rate 73 Respiratory 18 Rate Blood Pressure 153/95 O2 Sat by Pulse 97 Oximetry Physical Exam: GENERAL: Alert and oriented x3, no apparent distress, Normal Gait, atraumatic. HEAD: Head is normocephalic and a-traumatic. LUNGS: Symetrical with respiration, No wheezing, no rales or crackles, CTAB. HEART: S1, S2 present, regular rate and rhythm without murmur, no rubs, no gallops. Non tender to palpation BREAST: Symetrical, Supple bilaterally, No Masses, lumps, lesions, ulcerations. SKIN: Warm and dry, No lesions, No ulceration or induration present. MSE screening note: Focused history and physical exam performed. Due to findings the following was ordered: ED Medical Decision Making - Medical Decision Making This 40-year-old female presents with intermittent breast discomfort x1 month. Examination shows no breast abnormality. Patient noted that she has had some intermittent cough due to allergies. I discussed the patient to take Zyrtec or Claritin as needed for allergies. I discussed with patient to follow-up with her primary care physician within 3 days. Vital signs are normal. Patient is in no acute or respiratory distress. Patient is lying comfortably in ED bed. Patient understands all instructions and will follow-up. ED Disposition for MSE Clinical Impression: Breast pain in female Disposition: DC-01 TO HOME OR SELFCARE Is pt being admited?: No Does the pt Need Aspirin: No Condition: Stable Instructions: Breast Mass (ED), Breast Self-exam (ED) Additional Instructions: Make sure to follow up with the primary care physician as discussed. If you have any worsening symptoms or develop new symptoms please return to ED immediately. Referrals: PRIMARY CARE, [Primary Care Provider] - 3-5 Days [facility] [Outside] - 3-5 Days [facility] [Outside] - 3-5 Days [facility] [Outside] - 3-5 Days Forms: Work/School Release Form(ED) Time of Disposition: 08:30
[2020-03-24 08:48] VITALS: BP 155/82
== END 2020-03-24 08:46 | disposition home or self-care (01) ==
LOC: ED 06:01
DX: N64.4 Mastodynia (principal); Z88.8 Allergy status to other drugs, medicaments and biological substances
CPT/HCPCS: 99281

== ENCOUNTER 2021-01-24 15:09 | Emergency (ER) | payer SELFPAY ==
--- NOTE | 2021-01-24 15:33 | Event Note ---
ED Screening Note ED Screening Note: CP P EATING CHICKEN HX GERD "NOT MY GERD" NO SENSATION FB NO CARDIAC HX OBESE DENIES DRUGS/ETOH/THC This initial assessment/diagnostic orders/clinical plan/treatment(s) is/are subject to change based on patients health status, clinical progression and re- assessment by fellow clinical providers in the ED. Further treatment and workup at subsequent clinical providers discretion. Patient/guardian urged not to elope from the ED as their condition may be serious if not clinically assessed and managed. Initial orders include: RO ACS
[2021-01-24 15:34] VITALS: BP 126/87
[2021-01-24 15:54] LABS: Basophils % (Auto) 0.5 % (0.0-1.8); Eosinophils # (Auto) 0.1 K/mm3 (0.0-0.4); Eosinophils % (Auto) 2.1 % (0.0-4.3); Hematocrit 39.5 % (30.3-42.9); Lymphocytes # (Auto) 1.9 K/mm3 (1.2-5.4); Lymphocytes % (Auto) 36.1 % (13.4-35.0); Mean Corpuscular HGB Conc 33 % (30-34); Mean Corpuscular Volume 90 fl (79-97); Monocytes # (Auto) 0.4 K/mm3 (0.0-0.8); Monocytes % (Auto) 8.2 % (0.0-7.3); Platelet Count 295 K/mm3 (140-440); Red Blood Count 4.39 M/mm3 (3.65-5.03); Red Cell Distribution Width 13.9 % (13.2-15.2)
[2021-01-24 16:21] LABS: Alanine Aminotransferase 13 units/L (7-56); Albumin 4.1 g/dL (3.9-5); Blood Urea Nitrogen 8 mg/dL (7-17); Calcium 8.8 mg/dL (8.4-10.2); Hemolysis Index 12
[2021-01-24 16:22] LABS: BUN/Creatinine Ratio 11
--- NOTE | 2021-01-24 16:41 | XRay Report ---
CHEST 2 VIEWS INDICATION / CLINICAL INFORMATION: Chest Pain. COMPARISON: 12/19/2019 FINDINGS: SUPPORT DEVICES: None. HEART / MEDIASTINUM: No significant abnormality. LUNGS / PLEURA: No significant pulmonary or pleural abnormality. No pneumothorax. ADDITIONAL FINDINGS: No significant additional findings. IMPRESSION: 1. No acute findings. Signer Name: Hamilton Yuan MD Signed: 01/24/2021 4:36 PM Workstation Name: [id number]
--- NOTE | 2021-01-24 19:29 | Emergency Department Report ---
ED General Adult HPI - General Chief complaint: Chest Pain Stated complaint: CHEST PAIN Time Seen by Provider: 01/24/21 15:32 Source: patient Mode of arrival: Ambulatory Limitations: No Limitations - History of Present Illness Initial comments: Patient is a 41-year-old female presents emergency room complaints of substernal chest pain that began 1 hour prior to arrival after eating fried okra. She describes the pain as a pressure and feels like she needs to belch. She denies any fever, cough, nausea, vomiting, diarrhea, radiation of the pain, diap horesis, shortness of breath, numbness or weakness, leg swelling. She has a past medical history of GERD and has been taking Nexium [id number] for approximately a year but does not feel like it is helping. She states that she was once prescribed pantoprazole and believes it did help with her symptoms. She has not seen a GI doctor. She has an allergy to Toradol. - Related Data Previous Rx's Medication Instructions Recorded Last Taken Type Azithromycin [Zithromax Z-ROXANN] 250 mg PO DAILY #6 tablet 08/23/18 Unknown Rx Benzonatate [Tessalon Perle] 100 mg PO Q8H PRN #20 capsule 08/23/18 Unknown Rx Prednisone [predniSONE 10 mg 10 mg PO .TAPER #1 tab.ds.pk 08/23/18 Unknown Rx (6-Day Pack, 21 Tabs)] hydrOXYzine HCL [Atarax] 25 mg PO Q6HR PRN #20 tablet 10/12/18 Unknown Rx Dicyclomine [Bentyl] 10 mg PO QID PRN #20 capsule 05/08/19 Unknown Rx Menthol/Camphor [[place] 50 gm TP QID PRN #1 cream..g. 05/08/19 Unknown Rx Neck-Shoulder Cream] Metoclopramide [Reglan] 10 mg PO QID PRN #30 tablet 05/08/19 Unknown Rx Sulfamethoxazole/Trimethoprim 1 each PO BID #14 tablet 07/20/19 Unknown Rx [Bactrim DS TAB] traMADoL [Ultram 50 MG tab] 50 mg PO Q6HR PRN #12 tablet 07/20/19 Unknown Rx Famotidine [Pepcid] 40 mg PO QHS #30 tablet 10/22/19 Unknown Rx Ondansetron [Zofran Odt] 4 mg PO Q8HR #20 tab.rapdis 10/22/19 Unknown Rx traMADoL [Ultram 50 MG tab] 50 mg PO Q6HR PRN #12 tablet 10/22/19 Unknown Rx Pantoprazole [Protonix TAB] 20 mg PO QDAY #30 tablet.dr 11/01/19 Unknown Rx traMADoL [Ultram] 50 mg PO Q4HR PRN #14 tablet 11/10/19 Unknown Rx Sodium Chloride [Saline Nasal 1 - 2 sprays NS PRN PRN #1 bottle 11/20/19 Unknown Rx [place]] traMADoL [Ultram 50 MG tab] 50 mg PO Q6HR PRN #20 tablet 11/20/19 Unknown Rx Promethazine Dm (Nf) [Phenergan DM 5 ml PO Q6H PRN #60 12/01/19 Unknown Rx 6.25-15 mg/5 ml] methylPREDNISolone [Medrol 4MG 4 mg PO ONCE #1 tab.ds.pk 12/01/19 Unknown Rx DOSEPAK (21 tabs)] Famotidine [Pepcid] 20 mg PO BID #60 tablet 12/19/19 Unknown Rx Clindamycin [Clindamycin CAP] 300 mg PO Q8HR #60 capsule 03/03/20 Unknown Rx traMADoL [Ultram] 50 mg PO Q6HR PRN #12 tablet 03/03/20 Unknown Rx Pantoprazole [Protonix TAB] 40 mg PO QDAY #30 tablet 01/24/21 Unknown Rx Sucralfate [Carafate] 1 gm PO ACHS 7 Days #21 tablet 01/24/21 Unknown Rx Allergies Allergy/AdvReac Type Severity Reaction Status Date / Time ketorolac tromethamine Allergy Rash Verified 01/24/21 15:34 [From Toradol] ED Review of Systems ROS: Stated complaint: CHEST PAIN Other details as noted in HPI Comment: All other systems reviewed and negative ED Past Medical Hx - Past Medical History Hx Hypertension: Yes (Noncompliant with Rx) Hx Congestive Heart Failure: No Hx Diabetes: No Hx GERD: Yes Hx Sickle Cell Disease: No Hx Arthritis: Yes Hx Asthma: No Hx COPD: No Hx HIV: No - Social History Smoking Status: Never Smoker Substance Use Type: None - Medications Home Medications: Home Medications Medication Instructions Recorded Confirmed Last Taken Type Azithromycin [Zithromax Z-ROXANN] 250 mg PO DAILY #6 tablet 08/23/18 Unknown Rx Benzonatate [Tessalon Perle] 100 mg PO Q8H PRN #20 capsule 08/23/18 Unknown Rx Prednisone [predniSONE 10 mg 10 mg PO .TAPER #1 tab.ds.pk 08/23/18 Unknown Rx (6-Day Pack, 21 Tabs)] hydrOXYzine HCL [Atarax] 25 mg PO Q6HR PRN #20 tablet 10/12/18 Unknown Rx Dicyclomine [Bentyl] 10 mg PO QID PRN #20 capsule 05/08/19 Unknown Rx Menthol/Camphor [[place] 50 gm TP QID PRN #1 cream..g. 05/08/19 Unknown Rx Neck-Shoulder Cream] Metoclopramide [Reglan] 10 mg PO QID PRN #30 tablet 05/08/19 Unknown Rx Sulfamethoxazole/Trimethoprim 1 each PO BID #14 tablet 07/20/19 Unknown Rx [Bactrim DS TAB] traMADoL [Ultram 50 MG tab] 50 mg PO Q6HR PRN #12 tablet 07/20/19 Unknown Rx Famotidine [Pepcid] 40 mg PO QHS #30 tablet 10/22/19 Unknown Rx Ondansetron [Zofran Odt] 4 mg PO Q8HR #20 tab.rapdis 10/22/19 Unknown Rx traMADoL [Ultram 50 MG tab] 50 mg PO Q6HR PRN #12 tablet 10/22/19 Unknown Rx Pantoprazole [Protonix TAB] 20 mg PO QDAY #30 tablet. 11/01/19 Unknown Rx traMADoL [Ultram] 50 mg PO Q4HR PRN #14 tablet 11/10/19 Unknown Rx Sodium Chloride [Saline Nasal 1 - 2 sprays NS PRN PRN #1 bottle 11/20/19 Unknown Rx [place]] traMADoL [Ultram 50 MG tab] 50 mg PO Q6HR PRN #20 tablet 11/20/19 Unknown Rx Promethazine Dm (Nf) [Phenergan DM 5 ml PO Q6H PRN #60 12/01/19 Unknown Rx 6.25-15 mg/5 ml] methylPREDNISolone [Medrol 4MG 4 mg PO ONCE #1 tab.ds.pk 12/01/19 Unknown Rx DOSEPAK (21 tabs)] Famotidine [Pepcid] 20 mg PO BID #60 tablet 12/19/19 Unknown Rx Clindamycin [Clindamycin CAP] 300 mg PO Q8HR #60 capsule 03/03/20 Unknown Rx traMADoL [Ultram] 50 mg PO Q6HR PRN #12 tablet 03/03/20 Unknown Rx Pantoprazole [Protonix TAB] 40 mg PO QDAY #30 tablet 01/24/21 Unknown Rx Sucralfate [Carafate] 1 gm PO ACHS 7 Days #21 tablet 01/24/21 Unknown Rx ED Physical Exam - General Limitations: No Limitations General appearance: alert, in no apparent distress - Head Head exam: Present: atraumatic, normocephalic - Eye Eye exam: Present: normal appearance - ENT ENT exam: Present: mucous membranes moist - Respiratory Respiratory exam: Present: normal lung sounds bilaterally. Absent: respiratory distress, wheezes, rales, rhonchi, stridor, chest wall tenderness, accessory muscle use, decreased breath sounds, prolonged expiratory - Cardiovascular Cardiovascular Exam: Present: regular rate, normal rhythm, normal heart sounds. Absent: systolic murmur, diastolic murmur, rubs, gallop - GI/Abdominal GI/Abdominal exam: Present: soft, normal bowel sounds. Absent: distended, tenderness, guarding, rebound, rigid - Neurological Exam Neurological exam: Present: alert, oriented X3 - Psychiatric Psychiatric exam: Present: normal affect, normal mood - Skin Skin exam: Present: warm, dry, intact ED Course Vital Signs 01/24/21 15:32 Temperature 98.9 F Pulse Rate 90 Respiratory 20 Rate Blood Pressure 126/87 O2 Sat by Pulse 100 Oximetry ED Medical Decision Making - Lab Data Result diagrams: 01/24/21 15:41 01/24/21 15:41 Lab Results 01/24/21 01/24/21 01/24/21 Range/Units 15:41 15:41 15:41 WBC 5.2 (4.5-11.0) K/mm3 RBC 4.39 (3.65-5.03) M/mm3 Hgb 13.0 (10.1-14.3) gm/dl Hct 39.5 (30.3-42.9) % MCV 90 (79-97) fl MCH 30 (28-32) pg MCHC 33 (30-34) % RDW 13.9 (13.2-15.2) % Plt Count 295 (140-440) K/mm3 Lymph % (Auto) 36.1 H (13.4-35.0) % [place] % (Auto) 8.2 H (0.0-7.3) % Eos % (Auto) 2.1 (0.0-4.3) % Baso % (Auto) 0.5 (0.0-1.8) % Lymph # (Auto) 1.9 (1.2-5.4) K/mm3 [place] # (Auto) 0.4 (0.0-0.8) K/mm3 Eos # (Auto) 0.1 (0.0-0.4) K/mm3 Baso # (Auto) 0.0 (0.0-0.1) K/mm3 Seg Neutrophils % 53.1 (40.0-70.0) % Seg Neutrophils # 2.7 (1.8-7.7) K/mm3 Sodium 137 (137-145) mmol/L Potassium 4.4 (3.6-5.0) mmol/L Chloride 104.1 (98-107) mmol/L Carbon Dioxide 24 (22-30) mmol/L Anion Gap 13 mmol/L BUN 8 (7-17) mg/dL Creatinine 0.7 (0.6-1.2) mg/dL Estimated GFR > 60 ml/min BUN/Creatinine Ratio 11 % Glucose 130 H (65-100) mg/dL Calcium 8.8 (8.4-10.2) mg/dL Total Bilirubin 0.40 (0.1-1.2) mg/dL AST 15 (5-40) units/L ALT 13 (7-56) units/L Alkaline Phosphatase 69 (35-129) units/L Troponin T < 0.010 (0.00-0.029) ng/mL Total Protein 6.9 (6.3-8.2) g/dL Albumin 4.1 (3.9-5) g/dL Albumin/Globulin Ratio 1.5 % HCG, Qual Negative (Negative) 01/24/21 Range/Units 18:00 WBC (4.5-11.0) K/mm3 RBC (3.65-5.03) M/mm3 Hgb (10.1-14.3) gm/dl Hct (30.3-42.9) % MCV (79-97) fl MCH (28-32) pg MCHC (30-34) % RDW (13.2-15.2) % Plt Count (140-440) K/mm3 Lymph % (Auto) (13.4-35.0) % [place] % (Auto) (0.0-7.3) % Eos % (Auto) (0.0-4.3) % Baso % (Auto) (0.0-1.8) % Lymph # (Auto) (1.2-5.4) K/mm3 [place] # (Auto) (0.0-0.8) K/mm3 Eos # (Auto) (0.0-0.4) K/mm3 Baso # (Auto) (0.0-0.1) K/mm3 Seg Neutrophils % (40.0-70.0) % Seg Neutrophils # (1.8-7.7) K/mm3 Sodium (137-145) mmol/L Potassium (3.6-5.0) mmol/L Chloride (98-107) mmol/L Carbon Dioxide (22-30) mmol/L Anion Gap mmol/L BUN (7-17) mg/dL Creatinine (0.6-1.2) mg/dL Estimated GFR ml/min BUN/Creatinine Ratio % Glucose (65-100) mg/dL Calcium (8.4-10.2) mg/dL Total Bilirubin (0.1-1.2) mg/dL AST (5-40) units/L ALT (7-56) units/L Alkaline Phosphatase (35-129) units/L Troponin T < 0.010 (0.00-0.029) ng/mL Total Protein (6.3-8.2) g/dL Albumin (3.9-5) g/dL Albumin/Globulin Ratio % HCG, Qual (Negative) - EKG Data EKG shows normal: sinus rhythm, axis, intervals, QRS complexes, ST-T waves Rate: normal - Radiology Data Radiology results: report reviewed Ordering Physician: JO BYRD Date of Service: 01/24/21 Procedure(s): XR chest routine 2V Accession Number(s): [id number] cc: JO BYRD Fluoro Time In Minutes: CHEST 2 VIEWS INDICATION / CLINICAL INFORMATION: Chest Pain. COMPARISON: 12/19/2019 FINDINGS: SUPPORT DEVICES: None. HEART / MEDIASTINUM: No significant abnormality. LUNGS / PLEURA: No significant pulmonary or pleural abnormality. No pneumothorax. ADDITIONAL FINDINGS: No significant additional findings. IMPRESSION: 1. No acute findings. Signer Name: Hamilton Yuan MD Signed: 01/24/2021 4:36 PM Workstation Name: [id number] Transcribed By: KATHERINE Dictated By: Hamilton Yuan MD Electronically Authenticated By: Hamilton Yuan MD Signed Date/Time: 01/24/211635 DD/ 35 TD/TT: Print - Medical Decision Making Patient is a 41-year-old female presents emergency room complaints of substernal chest pain that began 1 hour prior to arrival after eating fried okra. She describes the pain as a pressure and feels like she needs to belch. She denies any fever, cough, nausea, vomiting, diarrhea, radiation of the pain, diaphoresis, shortness of breath, numbness or weakness, leg swelling. She has a past medical history of GERD and has been taking Nexium [id number] for approximately a year but does not feel like it is helping. She states that she was once prescribed pantoprazole and believes it did help with her symptoms. She has not seen a GI doctor. She has an allergy to Toradol. Vitals are normal. Labs are stable. Troponin is negative x2. EKG is within normal limits. Chest x-ray with no acute process. PERC criteria negative for PE, PE unlikely. Heart score is 1, do not suspect ACS. Her chest pain is atypical and appears more consistent with GERD. Her symptoms began after eating fried okra. Patient given prescription for Protonix and Carafate. Advised patient Please take medication as prescribed. Increase your water intake. Please follow the diet for acid reflux. Follow-up with a GI doctor. Follow-up with your primary care doctor. Return to emergency room for any new or worsening symptoms. Critical care attestation.: If time is entered above; I have spent that time in minutes in the direct care of this critically ill patient, excluding procedure time. ED Disposition Clinical Impression: Atypical chest pain GERD (gastroesophageal reflux disease) Qualifiers: Esophagitis presence: without esophagitis Qualified Code(s): K21.9 - Gastro- esophageal reflux disease without esophagitis Disposition: DC-01 TO HOME OR SELFCARE Is pt being admited?: No Does the pt Need Aspirin: No Condition: Stable Instructions: Food Choices for Gastroesophageal Reflux Disease, Adult, [id number] Additional Instructions: Please take medication as prescribed. Increase your water intake. Please follow the diet for acid reflux. Follow-up with a GI doctor. Follow-up with your primary care doctor. Return to emergency room for any new or worsening symptoms. Prescriptions: Sucralfate [Carafate] 1 gm PO ACHS 7 Days #21 tablet Pantoprazole [Protonix TAB] 40 mg PO QDAY #30 tablet Referrals: [facility] [Provider Group] - 2-3 Days FREEDOM RODAS MD [Staff Physician] - 2-[address] [facility] [Provider Group] - 2-3 Days Forms: Work/School Release Form(ED) Time of Disposition: 19:27 Print Language: POLISH
--- NOTE | 2021-01-25 17:50 | Electrocardiograph Report ---
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
== END 2021-01-24 20:44 | disposition home or self-care (01) ==
LOC: ED 15:09
DX: R07.89 Other chest pain (principal); K21.9 Gastro-esophageal reflux disease without esophagitis; I10 Essential (primary) hypertension; M19.90 Unspecified osteoarthritis, unspecified site; Z79.899 Other long term (current) drug therapy; Z88.8 Allergy status to other drugs, medicaments and biological substances
CPT/HCPCS: 36415; 71046; 80053; 84484; 84703; 85025; 93005; 99283

== ENCOUNTER 2021-08-25 22:22 | Emergency (ER) | payer OTHER ==
--- NOTE | 2021-08-26 00:28 | Emergency Department Report ---
ED ENT HPI - General Chief complaint: Dental/Oral Stated complaint: MOUTH PAIN Time Seen by Provider: 08/25/21 23:58 Source: patient Mode of arrival: Ambulatory Limitations: No Limitations - History of Present Illness Initial comments: CC: cracked tooth HPI: This is a 41 yo female with hx of History of hypertension, GERD, who presents with "cracked tooth, tooth pain" right jaw pain. Denies hand. No fever. No fistula. No difficulty swallowing MD complaint: tooth pain, other (Tooth #32) -: Sudden (2 months) Severity: severe Severity scale (0 -10): 10 Quality: aching Consistency: constant Improves with: none Worsens with: none - Related Data Previous Rx's Medication Instructions Recorded Last Taken Type Azithromycin [Zithromax Z-ROXANN] 250 mg PO DAILY #6 tablet 08/23/18 Unknown Rx Benzonatate [Tessalon Perle] 100 mg PO Q8H PRN #20 capsule 08/23/18 Unknown Rx Prednisone [predniSONE 10 mg 10 mg PO .TAPER #1 tab.ds.pk 08/23/18 Unknown Rx (6-Day Pack, 21 Tabs)] hydrOXYzine HCL [Atarax] 25 mg PO Q6HR PRN #20 tablet 10/12/18 Unknown Rx Dicyclomine [Bentyl] 10 mg PO QID PRN #20 capsule 05/08/19 Unknown Rx Menthol/Camphor [[place] 50 gm TP QID PRN #1 cream..g. 05/08/19 Unknown Rx Neck-Shoulder Cream] Metoclopramide [Reglan] 10 mg PO QID PRN #30 tablet 05/08/19 Unknown Rx Sulfamethoxazole/Trimethoprim 1 each PO BID #14 tablet 07/20/19 Unknown Rx [Bactrim DS TAB] traMADoL [Ultram 50 MG tab] 50 mg PO Q6HR PRN #12 tablet 07/20/19 Unknown Rx Famotidine [Pepcid] 40 mg PO QHS #30 tablet 10/22/19 Unknown Rx Ondansetron [Zofran Odt] 4 mg PO Q8HR #20 tab.rapdis 10/22/19 Unknown Rx traMADoL [Ultram 50 MG tab] 50 mg PO Q6HR PRN #12 tablet 10/22/19 Unknown Rx Pantoprazole [Protonix TAB] 20 mg PO QDAY #30 tablet. 11/01/19 Unknown Rx traMADoL [Ultram] 50 mg PO Q4HR PRN #14 tablet 11/10/19 Unknown Rx Sodium Chloride [Saline Nasal 1 - 2 sprays NS PRN PRN #1 bottle 11/20/19 Unknown Rx [place]] traMADoL [Ultram 50 MG tab] 50 mg PO Q6HR PRN #20 tablet 11/20/19 Unknown Rx Promethazine Dm (Nf) [Phenergan DM 5 ml PO Q6H PRN #60 12/01/19 Unknown Rx 6.25-15 mg/5 ml] methylPREDNISolone [Medrol 4MG 4 mg PO ONCE #1 tab.ds.pk 12/01/19 Unknown Rx DOSEPAK (21 tabs)] Famotidine [Pepcid] 20 mg PO BID #60 tablet 12/19/19 Unknown Rx Clindamycin [Clindamycin CAP] 300 mg PO Q8HR #60 capsule 03/03/20 Unknown Rx traMADoL [Ultram] 50 mg PO Q6HR PRN #12 tablet 03/03/20 Unknown Rx Pantoprazole [Protonix TAB] 40 mg PO QDAY #30 tablet 01/24/21 Unknown Rx Sucralfate [Carafate] 1 gm PO ACHS 7 Days #21 tablet 01/24/21 Unknown Rx Clindamycin [Clindamycin CAP] 300 mg PO TID 7 Days #21 cap 08/26/21 Unknown Rx Ibuprofen [Motrin 800 MG tab] 800 mg PO Q8HR PRN #20 tablet 08/26/21 Unknown Rx oxyCODONE /ACETAMINOPHEN [Percocet 1 tab PO Q6HR PRN #10 tablet 08/26/21 Unknown Rx 5/325] Allergies Allergy/AdvReac Type Severity Reaction Status Date / Time ketorolac tromethamine Allergy Rash Verified 01/24/21 15:34 [From Toradol] ED Dental HPI - General Chief complaint: Dental/Oral Stated complaint: MOUTH PAIN Time Seen by Provider: 08/25/21 23:58 Source: patient Mode of arrival: Ambulatory Limitations: No Limitations - Related Data Previous Rx's Medication Instructions Recorded Last Taken Type Azithromycin [Zithromax Z-ROXANN] 250 mg PO DAILY #6 tablet 08/23/18 Unknown Rx Benzonatate [Tessalon Perle] 100 mg PO Q8H PRN #20 capsule 08/23/18 Unknown Rx Prednisone [predniSONE 10 mg 10 mg PO .TAPER #1 tab.ds.pk 08/23/18 Unknown Rx (6-Day Pack, 21 Tabs)] hydrOXYzine HCL [Atarax] 25 mg PO Q6HR PRN #20 tablet 10/12/18 Unknown Rx Dicyclomine [Bentyl] 10 mg PO QID PRN #20 capsule 05/08/19 Unknown Rx Menthol/Camphor [[place] 50 gm TP QID PRN #1 cream..g. 05/08/19 Unknown Rx Neck-Shoulder Cream] Metoclopramide [Reglan] 10 mg PO QID PRN #30 tablet 05/08/19 Unknown Rx Sulfamethoxazole/Trimethoprim 1 each PO BID #14 tablet 07/20/19 Unknown Rx [Bactrim DS TAB] traMADoL [Ultram 50 MG tab] 50 mg PO Q6HR PRN #12 tablet 07/20/19 Unknown Rx Famotidine [Pepcid] 40 mg PO QHS #30 tablet 10/22/19 Unknown Rx Ondansetron [Zofran Odt] 4 mg PO Q8HR #20 tab.rapdis 10/22/19 Unknown Rx traMADoL [Ultram 50 MG tab] 50 mg PO Q6HR PRN #12 tablet 10/22/19 Unknown Rx Pantoprazole [Protonix TAB] 20 mg PO QDAY #30 tablet.dr 11/01/19 Unknown Rx traMADoL [Ultram] 50 mg PO Q4HR PRN #14 tablet 11/10/19 Unknown Rx Sodium Chloride [Saline Nasal 1 - 2 sprays NS PRN PRN #1 bottle 11/20/19 Unknown Rx [place]] traMADoL [Ultram 50 MG tab] 50 mg PO Q6HR PRN #20 tablet 11/20/19 Unknown Rx Promethazine Dm (Nf) [Phenergan DM 5 ml PO Q6H PRN #60 12/01/19 Unknown Rx 6.25-15 mg/5 ml] methylPREDNISolone [Medrol 4MG 4 mg PO ONCE #1 tab.ds.pk 12/01/19 Unknown Rx DOSEPAK (21 tabs)] Famotidine [Pepcid] 20 mg PO BID #60 tablet 12/19/19 Unknown Rx Clindamycin [Clindamycin CAP] 300 mg PO Q8HR #60 capsule 03/03/20 Unknown Rx traMADoL [Ultram] 50 mg PO Q6HR PRN #12 tablet 03/03/20 Unknown Rx Pantoprazole [Protonix TAB] 40 mg PO QDAY #30 tablet 01/24/21 Unknown Rx Sucralfate [Carafate] 1 gm PO ACHS 7 Days #21 tablet 01/24/21 Unknown Rx Clindamycin [Clindamycin CAP] 300 mg PO TID 7 Days #21 cap 08/26/21 Unknown Rx Ibuprofen [Motrin 800 MG tab] 800 mg PO Q8HR PRN #20 tablet 08/26/21 Unknown Rx oxyCODONE /ACETAMINOPHEN [Percocet 1 tab PO Q6HR PRN #10 tablet 08/26/21 Unknown Rx 5/325] Allergies Allergy/AdvReac Type Severity Reaction Status Date / Time ketorolac tromethamine Allergy Rash Verified 01/24/21 15:34 [From Toradol] ED Review of Systems ROS: Stated complaint: MOUTH PAIN Other details as noted in HPI Comment: All other systems reviewed and negative Constitutional: denies: chills, fever, malaise Cardiovascular: denies: chest pain Gastrointestinal: denies: abdominal pain, nausea, vomiting ED Past Medical Hx - Past Medical History Previous Medical History?: Yes Hx Hypertension: Yes (Noncompliant with Rx) Hx Congestive Heart Failure: No Hx Diabetes: No Hx GERD: Yes Hx Sickle Cell Disease: No Hx Arthritis: Yes Hx Asthma: No Hx COPD: No Hx HIV: No - Surgical History Past Surgical History?: No - Social History Smoking Status: Never Smoker Substance Use Type: None - Medications Home Medications: Home Medications Medication Instructions Recorded Confirmed Last Taken Type Azithromycin [Zithromax Z-ROXANN] 250 mg PO DAILY #6 tablet 08/23/18 Unknown Rx Benzonatate [Tessalon Perle] 100 mg PO Q8H PRN #20 capsule 08/23/18 Unknown Rx Prednisone [predniSONE 10 mg 10 mg PO .TAPER #1 tab.ds.pk 08/23/18 Unknown Rx (6-Day Pack, 21 Tabs)] hydrOXYzine HCL [Atarax] 25 mg PO Q6HR PRN #20 tablet 10/12/18 Unknown Rx Dicyclomine [Bentyl] 10 mg PO QID PRN #20 capsule 05/08/19 Unknown Rx Menthol/Camphor [[place] 50 gm TP QID PRN #1 cream..g. 05/08/19 Unknown Rx Neck-Shoulder Cream] Metoclopramide [Reglan] 10 mg PO QID PRN #30 tablet 05/08/19 Unknown Rx Sulfamethoxazole/Trimethoprim 1 each PO BID #14 tablet 07/20/19 Unknown Rx [Bactrim DS TAB] traMADoL [Ultram 50 MG tab] 50 mg PO Q6HR PRN #12 tablet 07/20/19 Unknown Rx Famotidine [Pepcid] 40 mg PO QHS #30 tablet 10/22/19 Unknown Rx Ondansetron [Zofran Odt] 4 mg PO Q8HR #20 tab.rapdis 10/22/19 Unknown Rx traMADoL [Ultram 50 MG tab] 50 mg PO Q6HR PRN #12 tablet 10/22/19 Unknown Rx Pantoprazole [Protonix TAB] 20 mg PO QDAY #30 tablet.dr 11/01/19 Unknown Rx traMADoL [Ultram] 50 mg PO Q4HR PRN #14 tablet 11/10/19 Unknown Rx Sodium Chloride [Saline Nasal 1 - 2 sprays NS PRN PRN #1 bottle 11/20/19 Unknown Rx [place]] traMADoL [Ultram 50 MG tab] 50 mg PO Q6HR PRN #20 tablet 11/20/19 Unknown Rx Promethazine Dm (Nf) [Phenergan DM 5 ml PO Q6H PRN #60 12/01/19 Unknown Rx 6.25-15 mg/5 ml] methylPREDNISolone [Medrol 4MG 4 mg PO ONCE #1 tab.ds.pk 12/01/19 Unknown Rx DOSEPAK (21 tabs)] Famotidine [Pepcid] 20 mg PO BID #60 tablet 12/19/19 Unknown Rx Clindamycin [Clindamycin CAP] 300 mg PO Q8HR #60 capsule 03/03/20 Unknown Rx traMADoL [Ultram] 50 mg PO Q6HR PRN #12 tablet 03/03/20 Unknown Rx Pantoprazole [Protonix TAB] 40 mg PO QDAY #30 tablet 01/24/21 Unknown Rx Sucralfate [Carafate] 1 gm PO ACHS 7 Days #21 tablet 01/24/21 Unknown Rx Clindamycin [Clindamycin CAP] 300 mg PO TID 7 Days #21 cap 08/26/21 Unknown Rx Ibuprofen [Motrin 800 MG tab] 800 mg PO Q8HR PRN #20 tablet 08/26/21 Unknown Rx oxyCODONE /ACETAMINOPHEN [Percocet 1 tab PO Q6HR PRN #10 tablet 08/26/21 Unknown Rx 5/325] ED Physical Exam - General Limitations: No Limitations General appearance: alert, in no apparent distress - Head Head exam: Present: atraumatic, normocephalic - Eye Eye exam: Present: normal appearance - ENT ENT exam: Present: mucous membranes moist, other (tooth decay #31-32) - Neck Neck exam: Present: normal inspection, full ROM - Respiratory Respiratory exam: Present: normal lung sounds bilaterally. Absent: respiratory distress - Cardiovascular Cardiovascular Exam: Present: regular rate, normal rhythm. Absent: systolic murmur, diastolic murmur, rubs, gallop - GI/Abdominal GI/Abdominal exam: Present: soft, normal bowel sounds. Absent: distended, tenderness, guarding, rebound - Extremities Exam Extremities exam: Present: normal inspection - Back Exam Back exam: Present: normal inspection - Neurological Exam Neurological exam: Present: alert, oriented X3 - Psychiatric Psychiatric exam: Present: normal affect, normal mood - Skin Skin exam: Present: warm, dry, intact, normal color. Absent: rash ED Course Vital Signs 08/25/21 22:26 Temperature 98.2 F Pulse Rate 80 Respiratory 14 Rate Blood Pressure 177/106 [Right] O2 Sat by Pulse 100 Oximetry ED Medical Decision Making - Medical Decision Making CTA due to severe decay without obvious abscess. No evidence of facial swelling. Prescribed clindamycin, Percocet and ibuprofen per Critical care attestation.: If time is entered above; I have spent that time in minutes in the direct care of this critically ill patient, excluding procedure time. ED Disposition Clinical Impression: Dental caries, Toothache Disposition: 01 HOME / SELF CARE / HOMELESS Is pt being admited?: No Does the pt Need Aspirin: No Condition: Stable Instructions: Preventive Dental Care, Adult Prescriptions: Clindamycin [Clindamycin CAP] 300 mg PO TID 7 Days #21 cap Ibuprofen [Motrin 800 MG tab] 800 mg PO Q8HR PRN #20 tablet PRN Reason: Pain , Severe (7-10) oxyCODONE /ACETAMINOPHEN [Percocet 5/325] 1 tab PO Q6HR PRN #10 tablet PRN Reason: Pain Referrals: [facility] [Outside] - 3-5 Days [facility] [Outside] - 3-5 Days
[2021-08-26 01:40] VITALS: BP 174/107
== END 2021-08-26 01:16 | disposition home or self-care (01) ==
LOC: ED 22:22
DX: K02.9 Dental caries, unspecified (principal); K08.89 Other specified disorders of teeth and supporting structures; I10 Essential (primary) hypertension; K21.9 Gastro-esophageal reflux disease without esophagitis; Z88.8 Allergy status to other drugs, medicaments and biological substances; M19.90 Unspecified osteoarthritis, unspecified site
CPT/HCPCS: 99282